=== PATIENT | female | born 1940 | race Caucasian/White ===

== ENCOUNTER 2020-08-24 08:58 | Outpatient (REF) | payer MEDICARE, SELFPAY ==
[2020-08-24 10:49] LABS: Blood Urea Nitrogen 28 mg/dL (9-16); Calcium 9.5 mg/dL (8.4-10.2); Estimated Glomerular Filt Rate 59; Phosphorus 4.3 mg/dL (2.7-4.5)
[2020-08-24 13:13] LABS: Anion Gap 12 (12-20); Carbon Dioxide 33 mmol/L (22-29); Chloride 100 mmol/L (96-108); Potassium 4.7 mmol/l (3.3-5.1); Sodium 140 mmol/L (135-145)
[2020-08-24 13:38] LABS: Renal w Reflex Lab Use Only Order verified
== END 2020-08-24 08:59 | disposition home or self-care (01) ==
LOC: HO.LAB 08:58
PROVIDERS: Visit Provider Internal Medicine Nephrology
DX: I12.9 Hypertensive chronic kidney disease with stage 1 through stage 4 chronic kidney disease, or unspecified chronic kidney disease (principal); N18.2 Chronic kidney disease, stage 2 (mild); D63.1 Anemia in chronic kidney disease; E87.1 Hypo-osmolality and hyponatremia; E87.5 Hyperkalemia; D63.8 Anemia in other chronic diseases classified elsewhere; R80.9 Proteinuria, unspecified
CPT/HCPCS: 80051; 82310; 82565; 84100; 84520

== ENCOUNTER 2020-09-01 09:52 | Outpatient (REF) | payer MEDICARE, SELFPAY ==
[2020-09-01 11:50] LABS: Estimated Average Glucose 171 mg/dL; Hemoglobin A1c % 7.6 %
[2020-09-01 12:08] LABS: Anion Gap 14 (12-20); Blood Urea Nitrogen 30 mg/dL (9-16); Calcium 8.9 mg/dL (8.4-10.2); Carbon Dioxide 31 mmol/L (22-29); Chloride 96 mmol/L (96-108); Estimated Glomerular Filt Rate 44; Glucose Random 368 mg/dL (60-115); Potassium 5.5 mmol/l (3.3-5.1); Sodium 135 mmol/L (135-145)
[2020-09-01 12:15] LABS: Free T4 (Free Thyroxine) 1.08 ng/dL (0.71-1.85); Thyroid Stimulating Hormone 2.61 mIU/mL (0.32-4.0)
== END 2020-09-01 09:53 | disposition home or self-care (01) ==
LOC: HO.LAB 09:52
DX: I10 Essential (primary) hypertension (principal); E11.9 Type 2 diabetes mellitus without complications; R53.83 Other fatigue
CPT/HCPCS: 80048; 83036; 84439; 84443

== ENCOUNTER 2020-12-31 07:58 | Outpatient (REF) | payer MEDICARE, SELFPAY ==
[2020-12-31 08:41] LABS: MANUAL DIFF FLAG NO
[2020-12-31 08:49] LABS: Basophils Percent Auto 0.5 % (0-2); Eosinophils Absolute Auto 0.3 X10*3/uL (0.0-0.4); Eosinophils Percent Auto 3.4 % (0-4); Hematocrit 35.7 % (37-47); Hemoglobin 11.7 g/dl (12.0-16.0); Imm Gran Abs Auto 0.02 X10*3/uL (0.00-0.03); Imm Gran Pct Auto 0.3 % (0.0-0.4); Lymphocytes Absolute Auto 2.1 X10*3/uL (1.2-4.9); Lymphocytes Percent Auto 27.9 % (20-40); Mean Corpuscular HGB Conc 32.8 g/dl (31.0-35.0); Mean Corpuscular Hemoglobin 32.4 pg (27.0-33.0); Mean Corpuscular Volume 98.9 fL (80-98); Mean Platelet Volume 12.1 fL (9.4-12.3); Monocytes Absolute Auto 0.6 X10*3/uL (0.1-1.2); Monocytes Percent Auto 7.8 % (2-11); Neutrophils Absolute Auto 4.5 X10*3/uL (2.0-8.3); Neutrophils Percent Auto 60.1 % (45-73); Platelet Count 319 X10*3/uL (160-400); Red Blood Count 3.61 X10*6/uL (4.20-5.50); Red Cell Distribution Width 11.4 % (11.0-16.0); White Blood Count 7.4 X10*3/uL (4.8-10.8)
[2020-12-31 09:14] LABS: Estimated Average Glucose 166 mg/dL; Hemoglobin A1c % 7.4 %
[2020-12-31 09:32] LABS: Alanine Aminotransferase 16 U/L (0-31); Albumin Level 4.1 g/dL (3.5-5.0); Alkaline Phosphatase 99 U/L (39-117); Anion Gap 14 (12-20); Aspartate Amino Transferase 19 U/L (5-31); Bilirubin Total 0.4 mg/dL (0.0-1.0); Blood Urea Nitrogen 32 mg/dL (9-16); Calcium 9.6 mg/dL (8.4-10.2); Carbon Dioxide 31 mmol/L (22-29); Chloride 100 mmol/L (96-108); Cholesterol 148 mg/dL; Estimated Glomerular Filt Rate 49; Glucose Random 124 mg/dL (60-115); HDL Cholesterol 43 mg/dL; LDL Cholesterol Calculated 89 mg/dl; Potassium 5.7 mmol/L (3.3-5.1); Sodium 139 mmol/L (135-145); Total Protein 7.1 g/dL (6.5-8.0); Triglycerides 80 mg/dL
[2020-12-31 09:37] LABS: Thyroid Stimulating Hormone 1.46 uIU/mL (0.32-4.0)
[2020-12-31 11:39] LABS: Creatinine Urine 69.19 mg/dL; Microalbum/Creatinine Ratio Ur 268.8 ug/mg cr
== END 2020-12-31 07:59 | disposition home or self-care (01) ==
LOC: HO.LAB 07:58
PROVIDERS: PCP Internal Medicine; Visit Provider Internal Medicine
DX: Z00.01 Encounter for general adult medical examination with abnormal findings (principal); E03.9 Hypothyroidism, unspecified; E11.65 Type 2 diabetes mellitus with hyperglycemia; E78.00 Pure hypercholesterolemia, unspecified; F32.89 Other specified depressive episodes; I12.9 Hypertensive chronic kidney disease with stage 1 through stage 4 chronic kidney disease, or unspecified chronic kidney disease; M54.16 Radiculopathy, lumbar region
CPT/HCPCS: 36415; 80053; 80061; 82043; 83036; 84443; 85025

== ENCOUNTER 2021-05-24 07:51 | Outpatient (REF) | payer MEDICARE, SELFPAY ==
[2021-05-24 08:44] LABS: Estimated Average Glucose 180 mg/dL; Hemoglobin A1c % 7.9 %
[2021-05-24 09:04] LABS: Alanine Aminotransferase 14 U/L (0-31); Albumin Level 3.9 g/dL (3.5-5.0); Alkaline Phosphatase 113 U/L (39-117); Anion Gap 14 (12-20); Aspartate Amino Transferase 21 U/L (5-31); Bilirubin Total 0.3 mg/dL (0.0-1.0); Blood Urea Nitrogen 24 mg/dL (9-16); Calcium 9.8 mg/dL (8.4-10.2); Carbon Dioxide 31 mmol/L (22-29); Chloride 98 mmol/L (96-108); Estimated Glomerular Filt Rate 45; Glucose Random 229 mg/dL (60-115); Potassium 5.4 mmol/L (3.3-5.1); Sodium 138 mmol/L (135-145)
== END 2021-05-24 07:52 | disposition home or self-care (01) ==
LOC: HO.LAB 07:51
PROVIDERS: PCP Internal Medicine; Visit Provider Internal Medicine
DX: E03.9 Hypothyroidism, unspecified (principal); E11.65 Type 2 diabetes mellitus with hyperglycemia; E78.00 Pure hypercholesterolemia, unspecified; M54.16 Radiculopathy, lumbar region; R80.9 Proteinuria, unspecified
CPT/HCPCS: 36415; 80053; 83036

== ENCOUNTER 2021-06-07 11:45 | Outpatient (REF) | payer MEDICARE, SELFPAY ==
[2021-06-07 13:54] LABS: Alanine Aminotransferase 14 U/L (0-31); Albumin Level 4.2 g/dL (3.5-5.0); Alkaline Phosphatase 104 U/L (39-117); Anion Gap 14 (12-20); Aspartate Amino Transferase 21 U/L (5-31); Bilirubin Total 0.3 mg/dL (0.0-1.0); Blood Urea Nitrogen 35 mg/dL (9-16); Carbon Dioxide 29 mmol/L (22-29); Chloride 99 mmol/L (96-108); Estimated Glomerular Filt Rate 40; Glucose Random 207 mg/dL (60-115); Potassium 5.8 mmol/L (3.3-5.1); Sodium 136 mmol/L (135-145); Total Protein 7.3 g/dL (6.5-8.0)
[2021-06-07 14:38] LABS: Estimated Average Glucose 192 mg/dL; Hemoglobin A1c % 8.3 %
== END 2021-06-07 11:46 | disposition home or self-care (01) ==
LOC: HO.LAB 11:45
PROVIDERS: PCP Internal Medicine; Visit Provider Internal Medicine
DX: E03.9 Hypothyroidism, unspecified (principal); E11.65 Type 2 diabetes mellitus with hyperglycemia; G56.02 Carpal tunnel syndrome, left upper limb; K64.8 Other hemorrhoids; N81.2 Incomplete uterovaginal prolapse
CPT/HCPCS: 36415; 80053; 83036

== ENCOUNTER 2021-06-28 10:31 | Outpatient (REF) | payer MEDICARE, SELFPAY ==
--- NOTE | ~2021-06-28 | MM_ITS ---
EXAMINATION: MM SCREENING DIGITAL BREAST TOMOSYNTHESIS, BILATERAL CLINICAL INFORMATION: Screening. Asymptomatic. The lifetime risk of breast cancer based on the Tyrer-Cuzick Model is 2%. COMPARISON: Mammography: 11/21/2019, 11/16/2018, 02/06/2018 TECHNIQUE: Digital breast tomosynthesis is performed in both the craniocaudal and mediolateral oblique views along with computer-aided detection (CAD). Synthesized 2D images are generated from the tomosynthesis. Additional exaggerated right CC view is provided. FINDINGS: The breasts are extremely dense, which lowers the sensitivity of mammography (ACR BI-RADS breast composition Category d). Parenchymal pattern is similar to prior exams. There is no developing density or interval mass or architectural abnormality. Again, there is a biopsy clip marker mid 9:30 o'clock left breast and circumscribed nodule posterior 3:00 left breast. Right breast again has benign grouped coarse calcifications mid to posterior 3:00 position. The bilateral axilla and skin contours are unremarkable. No significant changes. MM/MM tomosynthesis screening BI IMPRESSION: No significant changes from prior studies. ASSESSMENT: BI-RADS 2: Benign RECOMMENDATION: Routine annual mammography screening. This patient's information was entered into a reminder system with a target due date for their next mammogram.
== END 2021-06-28 10:32 | disposition home or self-care (01) ==
LOC: HO.MAMMO 10:31
PROVIDERS: Visit Provider Internal Medicine
DX: Z12.31 Encounter for screening mammogram for malignant neoplasm of breast (principal)
CPT/HCPCS: 77063; 77067

== ENCOUNTER → 2021-07-06 09:53 | Outpatient (BNVA) | payer MEDICARE, SELFPAY | PROVIDERS: PCP Internal Medicine; Visit Provider Obstetrics & Gynecology | DX: N81.4 Uterovaginal prolapse, unspecified (principal); E11.9 Type 2 diabetes mellitus without complications; I10 Essential (primary) hypertension; Z78.0 Asymptomatic menopausal state | CPT/HCPCS: 99212 ==

== ENCOUNTER → 2021-07-28 14:05 | Outpatient (BNVA) | payer MEDICARE, SELFPAY | PROVIDERS: PCP Internal Medicine; Visit Provider Surgery | DX: K64.8 Other hemorrhoids (principal) | CPT/HCPCS: 46600; 99202 ==

== ENCOUNTER 2021-08-02 09:08 | Outpatient (REF) | payer MEDICARE, SELFPAY ==
[2021-08-02 10:45] LABS: Basophils Percent Auto 0.5 % (0-2); Imm Gran Abs Auto 0.04 X10*3/uL (0.00-0.03); Imm Gran Pct Auto 0.5 % (0.0-0.4); Monocytes Absolute Auto 0.6 X10*3/uL (0.1-1.2)
[2021-08-02 10:47] LABS: Eosinophils Absolute Auto 0.2 X10*3/uL (0.0-0.4); Eosinophils Percent Auto 2.5 % (0-4); Hematocrit 32.9 % (37-47); Hemoglobin 10.6 g/dl (12.0-16.0); Lymphocytes Absolute Auto 1.7 X10*3/uL (1.2-4.9); Lymphocytes Percent Auto 21.3 % (20-40); Mean Corpuscular HGB Conc 32.2 g/dl (31.0-35.0); Mean Corpuscular Hemoglobin 32.1 pg (27.0-33.0); Mean Corpuscular Volume 99.7 fL (80-98); Monocytes Percent Auto 7.4 % (2-11); Neutrophils Absolute Auto 5.5 X10*3/uL (2.0-8.3); Neutrophils Percent Auto 67.8 % (45-73); Platelet Count 257 X10*3/uL (160-400); Red Cell Distribution Width 11.6 % (11.0-16.0); White Blood Count 8.1 X10*3/uL (4.8-10.8)
[2021-08-02 11:07] LABS: Albumin Level 3.9 g/dL (3.5-5.0); Anion Gap 14 (12-20); Blood Urea Nitrogen 35 mg/dL (9-16); Calcium 9.4 mg/dL (8.4-10.2); Carbon Dioxide 27 mmol/L (22-29); Chloride 100 mmol/L (96-108); Estimated Glomerular Filt Rate 42; Magnesium 2.1 mg/dL (1.6-2.6); Phosphorus 3.9 mg/dL (2.7-4.5); Potassium 5.7 mmol/L (3.3-5.1); Sodium 135 mmol/L (135-145); Uric Acid 3.4 mg/dL (2.4-5.7)
[2021-08-02 13:02] LABS: Renal w Reflex Lab Use Only Order verified
[2021-08-02 13:26] LABS: Glucose Random 444 mg/dL (60-115)
[2021-08-06 16:25] LABS: Vitamin D 25-OH, D2 <4 ng/mL; Vitamin D 25-OH, D3 20 ng/mL; Vitamin D 25-OH, Total 20 ng/mL (30-100)
== END 2021-08-02 09:09 | disposition home or self-care (01) ==
LOC: HO.LAB 09:08
PROVIDERS: PCP Internal Medicine; Visit Provider Internal Medicine Nephrology
DX: I12.9 Hypertensive chronic kidney disease with stage 1 through stage 4 chronic kidney disease, or unspecified chronic kidney disease (principal); N18.2 Chronic kidney disease, stage 2 (mild); E87.5 Hyperkalemia; E87.1 Hypo-osmolality and hyponatremia; D63.8 Anemia in other chronic diseases classified elsewhere; R80.9 Proteinuria, unspecified
CPT/HCPCS: 36415; 80051; 82040; 82306; 82310; 82550; 82565; 82947; 83735; 84100; 84520; 84550; 85025

== ENCOUNTER 2021-08-05 09:26 | Outpatient (REF) | payer MEDICARE, SELFPAY ==
--- NOTE | 2021-08-05 09:31 | EMG_ITS ---
The left median and ulnar motor and sensory studies were performed. Left radial sensory study was performed and paraspinal muscles were tested. IMPRESSION: 1. 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 2. 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 MD FOSTER Irizarry/IGNACIA / [id number]
== END 2021-08-05 09:27 | disposition home or self-care (01) ==
LOC: HO.NEURO 09:26
PROVIDERS: Visit Provider Internal Medicine
DX: G56.02 Carpal tunnel syndrome, left upper limb (principal)
CPT/HCPCS: 95886; 95909

== ENCOUNTER → 2021-09-01 10:09 | Outpatient (BNVA) | payer MEDICARE, SELFPAY | PROVIDERS: PCP Internal Medicine; Visit Provider Obstetrics & Gynecology | DX: N81.4 Uterovaginal prolapse, unspecified (principal) | CPT/HCPCS: 99212 ==

== ENCOUNTER → 2021-09-22 12:12 | Outpatient (BNVA) | payer MEDICARE, SELFPAY | PROVIDERS: PCP Internal Medicine; Visit Provider Obstetrics & Gynecology | DX: N81.4 Uterovaginal prolapse, unspecified (principal) | CPT/HCPCS: 99212 ==

== ENCOUNTER → 2021-09-23 10:57 | Outpatient (BNVA) | payer MEDICARE, SELFPAY | PROVIDERS: PCP Internal Medicine; Visit Provider Obstetrics & Gynecology | DX: Z46.89 Encounter for fitting and adjustment of other specified devices (principal); E11.9 Type 2 diabetes mellitus without complications; I10 Essential (primary) hypertension | CPT/HCPCS: 99212 ==

== ENCOUNTER → 2021-09-27 14:39 | Outpatient (BNVA) | payer MEDICARE, SELFPAY | PROVIDERS: PCP Internal Medicine; Visit Provider Obstetrics & Gynecology | DX: Z46.89 Encounter for fitting and adjustment of other specified devices (principal) | CPT/HCPCS: 99212 ==

== ENCOUNTER → 2021-10-05 10:31 | Outpatient (BNVA) | payer MEDICARE, SELFPAY | PROVIDERS: PCP Internal Medicine; Visit Provider Obstetrics & Gynecology | DX: Z46.89 Encounter for fitting and adjustment of other specified devices (principal); E11.9 Type 2 diabetes mellitus without complications; I10 Essential (primary) hypertension | CPT/HCPCS: 99212 ==

== ENCOUNTER 2021-10-06 08:34 | Outpatient (REF) | payer MEDICARE, SELFPAY ==
[2021-10-06 09:56] LABS: Cholesterol 150 mg/dL; HDL Cholesterol 41 mg/dL; LDL Cholesterol Calculated 93 mg/dl; Triglycerides 81 mg/dL
== END 2021-10-06 08:35 | disposition home or self-care (01) ==
LOC: HO.LAB 08:34
PROVIDERS: PCP Internal Medicine; Visit Provider Nurse Practitioner Family
DX: E78.2 Mixed hyperlipidemia (principal)
CPT/HCPCS: 36415; 80061

== ENCOUNTER 2021-12-01 08:05 | Outpatient (REF) | payer MEDICARE, SELFPAY ==
[2021-12-01 08:53] LABS: Estimated Average Glucose 180 mg/dL; Hemoglobin A1c % 7.9 %
[2021-12-01 08:56] LABS: Alanine Aminotransferase 16 U/L (0-31); Aspartate Amino Transferase 20 U/L (5-31); Cholesterol 128 mg/dL; HDL Cholesterol 37 mg/dL; LDL Cholesterol Calculated 76 mg/dl; Triglycerides 75 mg/dL
[2021-12-01 08:59] LABS: Alanine Aminotransferase 16 U/L (0-31); Albumin Level 4.1 g/dL (3.5-5.0); Alkaline Phosphatase 113 U/L (39-117); Anion Gap 13 (12-20); Aspartate Amino Transferase 21 U/L (5-31); Bilirubin Total 0.2 mg/dL (0.0-1.0); Blood Urea Nitrogen 39 mg/dL (9-16); Calcium 9.9 mg/dL (8.4-10.2); Carbon Dioxide 27 mmol/L (22-29); Chloride 102 mmol/L (96-108); Estimated Glomerular Filt Rate 45; Glucose Random 213 mg/dL (60-115); Potassium 5.2 mmol/L (3.3-5.1); Sodium 137 mmol/L (135-145); Total Protein 7.5 g/dL (6.5-8.0)
[2021-12-01 09:22] LABS: Thyroid Stimulating Hormone 0.16 uIU/mL (0.32-4.0)
== END 2021-12-01 08:06 | disposition home or self-care (01) ==
LOC: HO.LAB 08:05
PROVIDERS: Absent Provider Nurse Practitioner Family; PCP Internal Medicine; Visit Provider Internal Medicine
DX: E78.2 Mixed hyperlipidemia (principal); E03.9 Hypothyroidism, unspecified; E11.65 Type 2 diabetes mellitus with hyperglycemia; G56.02 Carpal tunnel syndrome, left upper limb; I12.9 Hypertensive chronic kidney disease with stage 1 through stage 4 chronic kidney disease, or unspecified chronic kidney disease; N18.9 Chronic kidney disease, unspecified; E11.22 Type 2 diabetes mellitus with diabetic chronic kidney disease
CPT/HCPCS: 36415; 80053; 80061; 83036; 84443; 84450; 84460

== ENCOUNTER → 2022-01-10 11:06 | Outpatient (BNVA) | payer MEDICARE, SELFPAY | PROVIDERS: PCP Internal Medicine; Visit Provider Obstetrics & Gynecology | DX: Z46.89 Encounter for fitting and adjustment of other specified devices (principal) | CPT/HCPCS: 99212 ==

== ENCOUNTER → 2022-05-02 10:53 | Outpatient (BNVA) | payer MEDICARE, SELFPAY | PROVIDERS: Visit Provider Obstetrics & Gynecology | DX: Z46.89 Encounter for fitting and adjustment of other specified devices (principal) | CPT/HCPCS: 99212 ==

== ENCOUNTER 2022-06-01 07:57 | Outpatient (REF) | payer MEDICARE, SELFPAY ==
[2022-06-01 08:51] LABS: Basophils Absolute Auto 0.1 X10*3/uL (0.0-0.2); Basophils Percent Auto 0.6 % (0-2); Eosinophils Absolute Auto 0.3 X10*3/uL (0.0-0.4); Eosinophils Percent Auto 3.1 % (0-4); Hematocrit 33.8 % (37.0-47.0); Hemoglobin 10.9 g/dl (12.0-16.0); Imm Gran Abs Auto 0.02 X10*3/uL (0.00-0.03); Imm Gran Pct Auto 0.3 % (0.0-0.4); Lymphocytes Absolute Auto 1.8 X10*3/uL (1.2-4.9); Lymphocytes Percent Auto 22.9 % (20-40); MANUAL DIFF FLAG SCAN; Mean Corpuscular HGB Conc 32.2 g/dl (31.0-35.0); Mean Corpuscular Hemoglobin 31.7 pg (27.0-33.0); Mean Corpuscular Volume 98.3 fL (80.0-98.0); Mean Platelet Volume 13.5 fL (9.4-12.3); Monocytes Absolute Auto 0.6 X10*3/uL (0.1-1.2); Neutrophils Absolute Auto 5.2 x10*3/uL (2.0-8.3); Neutrophils Percent Auto 65.1 % (45-73); PLT CLUMP 1; Red Blood Count 3.44 X10*6/uL (4.20-5.50); Red Cell Distribution Width 11.9 % (11.0-16.0); SCAN SMEAR FLAG 1
[2022-06-01 08:57] LABS: Platelet Count 219 X10*3/uL (160-400)
[2022-06-01 09:12] LABS: SLIDE REVIEW VERIFIED
[2022-06-01 09:37] LABS: Anion Gap 13 (12-20); Blood Urea Nitrogen 21 mg/dL (9-16); Carbon Dioxide 26 mmol/L (22-29); Chloride 104 mmol/L (96-108); Estimated Glomerular Filt Rate 51; Iron 63 mcg/dL (30-160); Percent Iron Saturation 24 % (15-50); Sodium 138 mmol/L (135-145); Total Iron Binding Capacity 262 mcg/dL (228-428); Unsaturated Iron Binding 199 ug/dL
[2022-06-01 12:28] LABS: Appearance Urine CLOUDY; Color Urine YELLOW; Glucose Urine UA 250 MG/DL (NEG); Leukocyte Esterase Urine 3+ (NEG); Nitrite Urine POS (NEG); Urine Blood NEG (NEG); Urine Ketones NEG (NEG); Urine Protein NEG (NEG-TRACE)
[2022-06-01 12:37] LABS: Bacteria Urine 3+ /LPF; Mucus Urine 2+ /LPF; RBC Urine 0 /HPF (0); Squamous Epithelial Cell Urine 3+ /LPF
[2022-06-01 13:42] LABS: Creatinine Urine 39.98 mg/dL; Total Protein Urine Random 12 mg/dL (<12)
== END 2022-06-01 07:58 | disposition home or self-care (01) ==
LOC: HO.LAB 07:57
PROVIDERS: Absent Provider Internal Medicine; PCP Internal Medicine; Visit Provider Internal Medicine Nephrology
DX: N18.2 Chronic kidney disease, stage 2 (mild) (principal)
CPT/HCPCS: 36415; 80051; 81001; 82043; 82310; 82565; 83540; 84156; 84520; 85025

== ENCOUNTER 2022-07-01 09:32 | Outpatient (REF) | payer MEDICARE, SELFPAY ==
--- NOTE | ~2022-07-01 | MM_ITS ---
EXAMINATION: MM SCREENING DIGITAL BREAST TOMOSYNTHESIS, BILATERAL CLINICAL INFORMATION: Screening. Asymptomatic. The lifetime risk of breast cancer based on the Tyrer-Cuzick Model is under 2%. COMPARISON: Mammography: 06/28/2021, 04/21/2020, 04/16/2019 TECHNIQUE: Digital breast tomosynthesis is performed in both the craniocaudal and mediolateral oblique views along with computer-aided detection (CAD). Synthesized 2D images are generated from the tomosynthesis. Additional right MLO view is provided. FINDINGS: The breasts are extremely dense, which lowers the sensitivity of mammography (ACR BI-RADS breast composition Category d). Parenchymal pattern is similar to prior exams. There is no developing density or interval architectural abnormality. Biopsy clip marker again seen mid medial left breast. There are stable benign-appearing grouped calcifications mid central inner breast. There are no significant changes. MM/MM tomosynthesis screening BI IMPRESSION: No significant changes from prior exams. ASSESSMENT: BI-RADS 2: Benign RECOMMENDATION: Routine annual mammography screening. This patient's information was entered into a reminder system with a target due date for their next mammogram.
== END 2022-07-01 09:33 | disposition home or self-care (01) ==
LOC: HO.MAMMO 09:32
PROVIDERS: PCP Internal Medicine; Visit Provider Internal Medicine
DX: Z12.31 Encounter for screening mammogram for malignant neoplasm of breast (principal)
CPT/HCPCS: 77063; 77067

== ENCOUNTER 2022-07-06 10:27 | Outpatient (REF) | payer MEDICARE, SELFPAY ==
[2022-07-06 11:27] LABS: Estimated Average Glucose 186 mg/dL; Hemoglobin A1c % 8.1 %
[2022-07-06 12:06] LABS: Alanine Aminotransferase 25 U/L (0-31); Albumin Level 4.1 g/dL (3.5-5.0); Alkaline Phosphatase 91 U/L (39-117); Anion Gap 14 (12-20); Aspartate Amino Transferase 31 U/L (5-31); Bilirubin Total 0.3 mg/dL (0.0-1.0); Blood Urea Nitrogen 29 mg/dL (9-16); Calcium 9.4 mg/dL (8.4-10.2); Carbon Dioxide 27 mmol/L (22-29); Chloride 101 mmol/L (96-108); Estimated Glomerular Filt Rate 38; Glucose Random 317 mg/dL (60-115); Potassium 5.3 mmol/L (3.3-5.1); Sodium 137 mmol/L (135-145); Total Protein 7.3 g/dL (6.5-8.0)
[2022-07-06 12:30] LABS: Thyroid Stimulating Hormone 1.85 uIU/mL (0.32-4.0); Vitamin D 25-OH Total 22.1 ng/mL (>30)
[2022-07-06 15:06] LABS: Microalbum/Creatinine Ratio Ur 62.3 ug/mg cr
== END 2022-07-06 10:28 | disposition home or self-care (01) ==
LOC: HO.LAB 10:27
PROVIDERS: PCP Internal Medicine; Visit Provider Internal Medicine
DX: E03.9 Hypothyroidism, unspecified (principal); E11.65 Type 2 diabetes mellitus with hyperglycemia; M48.061 Spinal stenosis, lumbar region without neurogenic claudication; S22.080S Wedge compression fracture of T11-T12 vertebra, sequela
CPT/HCPCS: 36415; 80053; 82043; 82306; 83036; 84443

== ENCOUNTER → 2022-08-11 10:36 | Outpatient (BNVA) | payer MEDICARE, SELFPAY | PROVIDERS: PCP Internal Medicine; Visit Provider Obstetrics & Gynecology | DX: S30.814A Abrasion of vagina and vulva, initial encounter (principal) | CPT/HCPCS: 99212 ==

== ENCOUNTER → 2022-09-07 09:39 | Outpatient (BNVA) | payer MEDICARE, SELFPAY | PROVIDERS: PCP Internal Medicine; Visit Provider Obstetrics & Gynecology | DX: N81.4 Uterovaginal prolapse, unspecified (principal) | CPT/HCPCS: 57160; 99212 ==

== ENCOUNTER 2022-10-13 08:23 | Outpatient (REF) | payer MEDICARE, SELFPAY ==
[2022-10-13 09:31] LABS: Estimated Average Glucose 177 mg/dL; Hemoglobin A1c % 7.8 %
[2022-10-13 10:24] LABS: Alanine Aminotransferase 20 U/L (0-31); Albumin Level 3.8 g/dL (3.5-5.0); Alkaline Phosphatase 78 U/L (39-117); Anion Gap 15 (12-20); Aspartate Amino Transferase 27 U/L (5-31); Bilirubin Total 0.6 mg/dL (0.0-1.0); Blood Urea Nitrogen 24 mg/dL (9-16); Calcium 9.6 mg/dL (8.4-10.2); Carbon Dioxide 28 mmol/L (22-29); Chloride 101 mmol/L (96-108); Estimated Glomerular Filt Rate 43; Glucose Random 390 mg/dL (60-115); Potassium 5.7 mmol/L (3.3-5.1); Sodium 138 mmol/L (135-145); Total Protein 6.7 g/dL (6.5-8.0)
== END 2022-10-13 08:24 | disposition home or self-care (01) ==
LOC: HO.LAB 08:23
PROVIDERS: PCP Internal Medicine; Visit Provider Internal Medicine
DX: E03.9 Hypothyroidism, unspecified (principal); E11.65 Type 2 diabetes mellitus with hyperglycemia; I12.9 Hypertensive chronic kidney disease with stage 1 through stage 4 chronic kidney disease, or unspecified chronic kidney disease; E11.22 Type 2 diabetes mellitus with diabetic chronic kidney disease; N18.9 Chronic kidney disease, unspecified; M80.0AXS Age-related osteoporosis with current pathological fracture, other site, sequela
CPT/HCPCS: 36415; 80053; 83036

== ENCOUNTER → 2022-12-08 09:50 | Outpatient (BNVA) | payer MEDICARE, SELFPAY | PROVIDERS: PCP Internal Medicine; Visit Provider Obstetrics & Gynecology | DX: S30.814A Abrasion of vagina and vulva, initial encounter (principal) | CPT/HCPCS: 99212 ==

== ENCOUNTER → 2023-01-19 10:36 | Outpatient (BNVA) | payer MEDICARE, SELFPAY | PROVIDERS: PCP Internal Medicine; Visit Provider Obstetrics & Gynecology | DX: N81.4 Uterovaginal prolapse, unspecified (principal); Z46.6 Encounter for fitting and adjustment of urinary device | CPT/HCPCS: 57160; 99212 ==

== ENCOUNTER 2023-02-15 10:37 | Outpatient (REF) | payer MEDICARE, SELFPAY ==
[2023-02-15 14:40] LABS: Estimated Average Glucose 203 mg/dL; Hemoglobin A1c % 8.7 %
[2023-02-15 14:52] LABS: Alanine Aminotransferase 13 U/L (0-31); Albumin Level 3.5 g/dL (3.5-5.0); Alkaline Phosphatase 53 U/L (39-117); Anion Gap 11 (12-20); Aspartate Amino Transferase 27 U/L (5-31); Bilirubin Total 0.4 mg/dL (0.0-1.0); Blood Urea Nitrogen 23 mg/dL (9-16); Calcium 8.8 mg/dL (8.4-10.2); Carbon Dioxide 28 mmol/L (22-29); Chloride 102 mmol/L (96-108); Cholesterol 124 mg/dL; Estimated Glomerular Filt Rate 48; Glucose Random 249 mg/dL (60-115); HDL Cholesterol 39 mg/dL; LDL Cholesterol Calculated 73 mg/dl; Sodium 136 mmol/L (135-145); Total Protein 5.9 g/dL (6.5-8.0); Triglycerides 63 mg/dL
[2023-02-15 15:03] LABS: Creatinine Urine 56.07 mg/dL; Microalbum/Creatinine Ratio Ur 35.6 ug/mg cr
[2023-02-15 15:05] LABS: Thyroid Stimulating Hormone 1.37 uIU/mL (0.32-4.0); Vitamin B12 923 pg/mL (200-900); Vitamin D 25-OH Total 32.4 ng/mL (>30)
== END 2023-02-15 10:38 | disposition home or self-care (01) ==
LOC: HO.10HDL 10:37
PROVIDERS: Visit Provider Internal Medicine
DX: E03.9 Hypothyroidism, unspecified (principal); E11.65 Type 2 diabetes mellitus with hyperglycemia; E11.22 Type 2 diabetes mellitus with diabetic chronic kidney disease; I12.9 Hypertensive chronic kidney disease with stage 1 through stage 4 chronic kidney disease, or unspecified chronic kidney disease; N18.9 Chronic kidney disease, unspecified; M81.0 Age-related osteoporosis without current pathological fracture; R80.9 Proteinuria, unspecified
CPT/HCPCS: 36415; 80053; 80061; 82043; 82306; 82607; 83036; 84443

== ENCOUNTER 2023-03-14 07:33 | Outpatient (REF) | payer MEDICARE, SELFPAY ==
[2023-03-14 11:24] LABS: Alanine Aminotransferase 17 U/L (0-31)
[2023-03-16 11:48] LABS: Aspartate Amino Transferase 24 U/L (5-31); Cholesterol 131 mg/dL; HDL Cholesterol 40 mg/dL; LDL Cholesterol Calculated 72 mg/dl; Triglycerides 95 mg/dL
== END 2023-03-14 07:34 | disposition home or self-care (01) ==
LOC: HO.LAB 07:33
PROVIDERS: Visit Provider Internal Medicine Cardiovascular Disease
DX: E78.00 Pure hypercholesterolemia, unspecified (principal)
CPT/HCPCS: 36415; 80061; 84450; 84460

== ENCOUNTER 2023-05-01 07:36 | Outpatient (REF) | payer MEDICARE, SELFPAY ==
[2023-05-01 09:07] LABS: Alanine Aminotransferase 12 U/L (0-31); Aspartate Amino Transferase 25 U/L (5-31); Cholesterol 148 mg/dL; HDL Cholesterol 46 mg/dL; LDL Cholesterol Calculated 88 mg/dl; Triglycerides 70 mg/dL
== END 2023-05-01 07:37 | disposition home or self-care (01) ==
LOC: HO.LAB 07:36
PROVIDERS: Visit Provider Nurse Practitioner Family
DX: E78.5 Hyperlipidemia, unspecified (principal)
CPT/HCPCS: 36415; 80061; 84450; 84460

== ENCOUNTER → 2023-05-08 10:39 | Outpatient (BNVA) | payer MEDICARE, SELFPAY | PROVIDERS: PCP Internal Medicine; Visit Provider Obstetrics & Gynecology | DX: Z46.89 Encounter for fitting and adjustment of other specified devices (principal) | CPT/HCPCS: 99212 ==

== ENCOUNTER 2023-05-17 11:29 | Outpatient (REF) | payer MEDICARE, SELFPAY ==
[2023-05-17 13:25] LABS: Estimated Average Glucose 209 mg/dL; Hemoglobin A1c % 8.9 %
[2023-05-17 14:37] LABS: Alanine Aminotransferase 22 U/L (0-31); Albumin Level 3.7 g/dL (3.5-5.0); Alkaline Phosphatase 72 U/L (39-117); Anion Gap 16 (12-20); Aspartate Amino Transferase 37 U/L (5-31); Bilirubin Total 0.4 mg/dL (0.0-1.0); Blood Urea Nitrogen 32 mg/dL (9-16); Calcium 9.9 mg/dL (8.4-10.2); Carbon Dioxide 26 mmol/L (22-29); Chloride 97 mmol/L (96-108); Estimated Glomerular Filt Rate 38; Glucose Random 445 mg/dL (60-115); Sodium 134 mmol/L (135-145); Total Protein 7.1 g/dL (6.5-8.0)
== END 2023-05-17 11:30 | disposition home or self-care (01) ==
LOC: HO.LAB 11:29
PROVIDERS: PCP Internal Medicine; Visit Provider Internal Medicine
DX: K14.6 Glossodynia (principal); R63.4 Abnormal weight loss; R80.9 Proteinuria, unspecified; E10.9 Type 1 diabetes mellitus without complications
CPT/HCPCS: 36415; 80053; 83036

== ENCOUNTER 2023-06-23 07:18 | Outpatient (REF) | payer MEDICARE, SELFPAY ==
[2023-06-23 08:43] LABS: Alanine Aminotransferase 23 U/L (0-31); Aspartate Amino Transferase 36 U/L (5-31); Cholesterol 102 mg/dL; HDL Cholesterol 46 mg/dL; LDL Cholesterol Calculated 45 mg/dl; Triglycerides 59 mg/dL
== END 2023-06-23 07:19 | disposition home or self-care (01) ==
LOC: HO.LAB 07:18
PROVIDERS: Visit Provider Nurse Practitioner Family
DX: E78.5 Hyperlipidemia, unspecified (principal)
CPT/HCPCS: 36415; 80061; 84450; 84460

== ENCOUNTER 2023-06-29 09:48 | Outpatient (REF) | payer MEDICARE, SELFPAY | END 2023-06-29 09:49 | disposition home or self-care (01) | LOC: HO.LNP 09:48 | PROVIDERS: Visit Provider Otolaryngology | DX: B37.9 Candidiasis, unspecified (principal) | CPT/HCPCS: 87102 ==

== ENCOUNTER 2023-08-15 10:11 | Outpatient (AMB) | payer MEDICARE, SELFPAY ==
--- NOTE | 2023-08-15 10:12 | MHC.OFFVIS ---
Intake Vital Signs 08/15/23 10:15 Height 5 ft Weight 110 lb 3.698 oz BMI 21.5 BP 98/58 L Intake Visit Reasons: Pessary Rhic Systems Safety Engineer Required: No Information Interpreted: non-clinical & clinical Nitro Man: Nitro Man Present (Esther GOLD) Accompanied by: Spouse Allergies No Known Allergies Allergy (Unknown, Verified 08/15/23 10:16) Post menopausal: Yes HPI HPI Comments History of Present Illness Details The patient is presenting for pessary check no complaints no vaginal pain, discharge or pressure. The pessary did not slip out. PFS Medical History Pessary maintenance Hemorrhoids with complication Thyroid disease Heart problem Acute hemorrhoid Hypertension Diabetes 1.5, managed as type 2 Surgical History H/O heart surgery Social History Household Members: Spouse Housing: Apartment Alcohol intake: never Patient Tobacco Use Status: Never used Tobacco Sexual orientation: Straight/Heterosexual Gender identity: Female Female Reproductive History Menstrual Age of Menarche: 13 Review of Systems Const All systems reviewed & are unremarkable except as noted in HPI and below Physical Exam Vital Signs: Last Vital Signs BP 98/58 L 08/15/23 10:15 BMI result Body Mass Index 21.5 General: Yes no CVA tenderness External Female Exam: normal external appearance and normal appearance of the urethra Speculum Exam - Vagina: normal palpation, no masses and other (Posterior fornix and left vaginal wall abrasion) Speculum Exam - Cervix: normal appearance of the cervix, normal palpation, no lesions, no masses and nontender Bimanual exam- vagina & uterus: normal bimanual exam, normal palpation, uterine size normal, normal palpation, uterine shape normal, No Cervical tenderness present and non-tender Bimanual Exam- Adnexa, other: normal adnexae Back/Spine/Pelvis Back: no CVA tenderness Assessment & Plan Assessment & Plan (1) Vaginal abrasion: Comment: Secondary to pessary Code(s): S30.814A - Abrasion of vagina and vulva, initial encounter Plan: Discussed with the patient the finding on pelvic exam, posterior fornix and vaginal wall abrasion. Will keep the pessary out, recommended repeat exam in 6 weeks if within normal reinsert the pessary , meanwhile instructions given the patient to call in case of vaginal bleeding pain fever or any other concerns. All questions answered, the patient verbalized understanding. Coding Level of Care Code Est Pt Level 3 (90129) Diagnoses Vaginal abrasion S30.814A
[2023-08-15 10:15] VITALS: BP 98/58; BMI 21.5
== END 2023-08-15 10:30 | disposition home or self-care (01) ==
LOC: HO.HWS 10:11
PROVIDERS: PCP Internal Medicine; Visit Provider Obstetrics & Gynecology
DX: S30.814A Abrasion of vagina and vulva, initial encounter (principal)
CPT/HCPCS: 99213

== ENCOUNTER → 2023-08-15 10:11 | Outpatient (BNVA) | payer MEDICARE, SELFPAY | PROVIDERS: PCP Internal Medicine; Visit Provider Obstetrics & Gynecology | DX: S30.814A Abrasion of vagina and vulva, initial encounter (principal) | CPT/HCPCS: 99212 ==

== ENCOUNTER 2023-08-21 07:49 | Outpatient (REF) | payer MEDICARE, SELFPAY ==
[2023-08-21 08:35] LABS: Basophils Absolute Auto 0.1 X10*3/uL (0.0-0.2); Basophils Percent Auto 0.6 % (0-2); Eosinophils Absolute Auto 0.1 X10*3/uL (0.0-0.4); Eosinophils Percent Auto 1.7 % (0-4); Hematocrit 35.6 % (37.0-47.0); Hemoglobin 11.8 g/dl (12.0-16.0); Imm Gran Abs Auto 0.02 X10*3/uL (0.00-0.03); Imm Gran Pct Auto 0.2 % (0.0-0.4); Lymphocytes Percent Auto 24.2 % (20-40); MANUAL DIFF FLAG SCAN; Mean Corpuscular HGB Conc 33.1 g/dl (31.0-35.0); Mean Corpuscular Hemoglobin 32.8 pg (27.0-33.0); Mean Corpuscular Volume 98.9 fL (80.0-98.0); Mean Platelet Volume 13.4 fL (9.4-12.3); Monocytes Absolute Auto 0.6 X10*3/uL (0.1-1.2); Monocytes Percent Auto 7.4 % (2-11); Neutrophils Absolute Auto 5.6 x10*3/uL (2.0-8.3); Neutrophils Percent Auto 65.9 % (45-73); PLT CLUMP 1; Red Cell Distribution Width 11.7 % (11.0-16.0); SCAN SMEAR FLAG 1
[2023-08-21 08:40] LABS: Platelet Count 207 X10*3/uL (160-400); White Blood Count 8.4 X10*3/uL (4.8-10.8)
[2023-08-21 09:01] LABS: SLIDE REVIEW VERIFIED
[2023-08-21 09:14] LABS: Anion Gap 17 (12-20); Blood Urea Nitrogen 25 mg/dL (9-16); Carbon Dioxide 26 mmol/L (22-29); Chloride 99 mmol/L (96-108); Estimated Glomerular Filt Rate 42; Magnesium 2.2 mg/dL (1.6-2.6); Phosphorus 3.7 mg/dL (2.7-4.5); Potassium 5.2 mmol/L (3.3-5.1); Sodium 137 mmol/L (135-145)
[2023-08-21 13:48] LABS: Appearance Urine Cloudy; Color Urine Yellow; Glucose Urine UA >=1000 mg/dL (Negative); Leukocyte Esterase Urine Moderate (2+) (Negative); Nitrite Urine Negative (Negative); UMIC TRIGGER UA YES; Urine Blood Negative (Negative); Urine Ketones Negative (Negative); Urine Protein Negative (Neg-Trace)
[2023-08-21 13:58] LABS: Bacteria Urine 4+ (None Seen); RBC Urine 0-2 /HPF (0-2)
[2023-08-21 14:34] LABS: Creatinine Urine 23.45 mg/dL; Microalbum/Creatinine Ratio Ur 123.6 ug/mg cr (<30); Protein/Creatinine Ratio, Ur 0.43 (<0.2); Total Protein Urine Random 10 mg/dL (<12)
[2023-08-22 15:48] LABS: Calcium (PTHI) 9.7 mg/dL (8.6-10.4); PTHI 48 pg/mL (16-77)
== END 2023-08-21 07:50 | disposition home or self-care (01) ==
LOC: HO.LAB 07:49
PROVIDERS: PCP Internal Medicine; Visit Provider Internal Medicine Nephrology
DX: E11.22 Type 2 diabetes mellitus with diabetic chronic kidney disease (principal); N18.2 Chronic kidney disease, stage 2 (mild); R80.1 Persistent proteinuria, unspecified; R82.90 Unspecified abnormal findings in urine
CPT/HCPCS: 36415; 80051; 81001; 82040; 82043; 82310; 82565; 82570; 83735; 83970; 84100; 84156; 84520; 85025; 87086; 87088; 87186

== ENCOUNTER 2023-09-27 10:31 | Outpatient (AMB) | payer MEDICARE, SELFPAY ==
[2023-09-27 10:41] VITALS: BP 100/64; BMI 21.5
--- NOTE | 2023-09-27 10:41 | MHC.OFFVIS ---
Intake Vital Signs 09/27/23 10:41 Height 5 ft Weight 110 lb BMI 21.5 BP 100/64 Intake Visit Reasons: 6 week pessary follow up Cotton Program Technician Required: No Information Interpreted: non-clinical & clinical Performance Improvement Specialist: Performance Improvement Specialist Present (Esther) Allergies No Known Allergies Allergy (Unknown, Verified 09/27/23 10:41) Is last menstrual period known: No Post menopausal: Yes Patient : No HPI HPI Comments History of Present Illness Details Presenting up vaginal abrasion from pessary. The patient is doing well with no complaints no vaginal discharge pain or bleeding. [facility] [place] Medical History Pessary maintenance Hemorrhoids with complication Thyroid disease Heart problem Acute hemorrhoid Hypertension Diabetes 1.5, managed as type 2 Surgical History H/O heart surgery Household Members: Spouse Housing: Apartment Alcohol intake: never Patient Tobacco Use Status: Never used Tobacco Patient : No Sexual orientation: Straight/Heterosexual Gender identity: Female Female Reproductive History Menstrual Age of Menarche: 13 control method: none Review of Systems Const All systems reviewed & are unremarkable except as noted in HPI and below Physical Exam Vital Signs: Last Vital Signs BP 100/64 09/27/23 10:41 BMI result Body Mass Index 21.5 Other: Moderate uterine prolapse, [id number] Central +bilateral paravaginal defect with mild rectocele General: Yes no CVA tenderness External Female Exam: normal external appearance and normal appearance of the urethra Speculum Exam - Vagina: normal appearance of the vagina, normal palpation, no lesions and no masses Speculum Exam - Cervix: normal appearance of the cervix, normal palpation, no lesions, no masses and nontender Bimanual exam- vagina & uterus: normal bimanual exam, normal palpation, uterine size normal, normal palpation, uterine shape normal, No Cervical tenderness present, non-tender and other (No evidence of abrasion) Bimanual Exam- Adnexa, other: normal adnexae Back/Spine/Pelvis Back: no CVA tenderness Assessment & Plan Assessment & Plan (1) Pessary maintenance: Code(s): Z46.89 - Encounter for fitting and adjustment of other specified devices Plan: Ring pessary inserted in the vagina. Afterwards the pt did not feel it in, and did not have any pain or pressure. After Valsalva x 3 ( lying down, sitting and standing up ) pessary stayed in . Instructions given the patient to call in case of vaginal pain discharge or bleeding and to schedule a 3 months follow-up appointment . Vaginal Trimosan Gel is to be used x2-3 x/week. The patient verbalized understanding and all questions were answered. Coding Level of Care Code Est Pt Level 3 (62160) Diagnoses Pessary maintenance Z46.89
== END 2023-09-27 10:57 | disposition home or self-care (01) ==
LOC: HO.HWS 10:31
PROVIDERS: PCP Internal Medicine; Visit Provider Obstetrics & Gynecology
DX: Z46.89 Encounter for fitting and adjustment of other specified devices (principal)
CPT/HCPCS: 99213

== ENCOUNTER → 2023-09-27 10:31 | Outpatient (BNVA) | payer MEDICARE, SELFPAY | PROVIDERS: PCP Internal Medicine; Visit Provider Obstetrics & Gynecology | DX: N81.4 Uterovaginal prolapse, unspecified (principal); N95.9 Unspecified menopausal and perimenopausal disorder; Z46.89 Encounter for fitting and adjustment of other specified devices | CPT/HCPCS: 99212 ==

== ENCOUNTER 2023-12-06 08:06 | Outpatient (REF) | payer MEDICARE, SELFPAY ==
[2023-12-06 09:35] LABS: Estimated Average Glucose 197 mg/dL; Hemoglobin A1c % 8.5 % (<6.0)
[2023-12-06 10:02] LABS: Alanine Aminotransferase 36 U/L (0-31); Albumin Level 3.5 g/dL (3.5-5.0); Alkaline Phosphatase 61 U/L (39-117); Anion Gap 11 (12-20); Aspartate Amino Transferase 61 U/L (5-31); Bilirubin Total 0.3 mg/dL (0.0-1.0); Blood Urea Nitrogen 30 mg/dL (9-16); Calcium 9.2 mg/dL (8.4-10.2); Carbon Dioxide 31 mmol/L (22-29); Chloride 102 mmol/L (96-108); Estimated Glomerular Filt Rate 49; Glucose Random 173 mg/dL (60-115); Potassium 4.5 mmol/L (3.3-5.1); Sodium 139 mmol/L (135-145); Total Protein 6.7 g/dL (6.5-8.0)
[2023-12-06 10:18] LABS: Thyroid Stimulating Hormone 0.68 uIU/mL (0.32-4.0)
== END 2023-12-06 08:07 | disposition home or self-care (01) ==
LOC: HO.LAB 08:06
PROVIDERS: PCP Internal Medicine; Visit Provider Internal Medicine
DX: E03.9 Hypothyroidism, unspecified (principal); E11.65 Type 2 diabetes mellitus with hyperglycemia; I10 Essential (primary) hypertension; N18.9 Chronic kidney disease, unspecified; R80.9 Proteinuria, unspecified
CPT/HCPCS: 36415; 80053; 83036; 84443

== ENCOUNTER 2023-12-13 11:35 | Outpatient (REF) | payer MEDICARE, SELFPAY ==
--- NOTE | ~2023-12-13 | XR_ITS ---
EXAMINATION: XR HIP, RIGHT CLINICAL INFORMATION: Right hip osteoarthritis. COMPARISON: None available. TECHNIQUE: Two views of the right hip. FINDINGS: No fracture. Alignment is anatomic. Hip joint space minimally narrowed. Small osteophyte extends off the femoral head. Atherosclerotic calcifications are seen within the vessels of the inner thigh. XR/XR hip RT min 2V IMPRESSION: Minimal osteoarthritis of the right hip.
== END 2023-12-13 11:36 | disposition home or self-care (01) ==
LOC: HO.XRAY 11:35
PROVIDERS: PCP Internal Medicine; Visit Provider Internal Medicine
DX: M16.11 Unilateral primary osteoarthritis, right hip (principal)
CPT/HCPCS: 73502

== ENCOUNTER 2023-12-18 10:00 | Outpatient (REF) | payer MEDICARE, SELFPAY ==
[2023-12-18 11:00] VITALS: BP 183/77; PULSE 70; RESP 16; TEMP 36.8; O2SAT 98
[2023-12-18 13:34] VITALS: BMI 20.1
== END 2023-12-18 10:01 | disposition home or self-care (01) ==
LOC: HO.MS 10:00
PROVIDERS: PCP Internal Medicine; Visit Provider Ophthalmology
DX: H26.491 Other secondary cataract, right eye (principal); Z53.9 Procedure and treatment not carried out, unspecified reason

== ENCOUNTER 2023-12-28 10:28 | Outpatient (AMB) | payer MEDICARE, SELFPAY ==
[2023-12-28 10:55] VITALS: BMI 20.1
--- NOTE | 2023-12-28 10:55 | A.OFFVIS_ITS ---
Intake Vital Signs 12/28/23 10:55 Height 5 ft 2 in Weight 110 lb BMI 20.1 Intake Visit Reasons: 3 month pessary follow up Harness And Bag Inspector Required: No Information Interpreted: non-clinical & clinical Environmental Conservation Professor: Environmental Conservation Professor Present (Esther) Allergies No Known Allergies Allergy (Unknown, Verified 12/28/23 10:55) Is last menstrual period known: No Post menopausal: Yes Patient : No HPI HPI Comments History of Present Illness Details The patient is presenting for pessary check no complaints no vaginal pain, discharge or pressure. The pessary did not slip out. PFS Medical History Pessary maintenance Hemorrhoids with complication Thyroid disease Heart problem Acute hemorrhoid Hypertension Diabetes 1.5, managed as type 2 Surgical History H/O heart surgery Social History Household Members: Spouse Housing: Apartment Alcohol intake: never Patient Tobacco Use Status: Never used Tobacco Patient : No Sexual orientation: Straight/Heterosexual Gender identity: Female Female Reproductive History Menstrual Age of Menarche: 13 control method: none Review of Systems Const All systems reviewed & are unremarkable except as noted in HPI and below Physical Exam Vital Signs: BMI result Body Mass Index 20.1 Other: Moderate uterine prolapse, [id number] Central +bilateral paravaginal defect with mild rectocele General: Yes no CVA tenderness External Female Exam: normal external appearance and normal appearance of the urethra Speculum Exam - Vagina: normal appearance of the vagina, normal palpation, no lesions, no masses and other (Pessary taken out, posterior fornix abrasion.) Speculum Exam - Cervix: normal appearance of the cervix, normal palpation, no lesions, no masses and nontender Bimanual exam- vagina & uterus: normal bimanual exam, normal palpation, uterine size normal, normal palpation, uterine shape normal, No Cervical tenderness present and non-tender Bimanual Exam- Adnexa, other: normal adnexae Back/Spine/Pelvis Back: no CVA tenderness Assessment & Plan Assessment & Plan (1) Vaginal abrasion: Comment: Secondary to pessary Code(s): S30.814A - Abrasion of vagina and vulva, initial encounter Plan: Pessary taken out, repeat out for 6 weeks secondary to vaginal abrasion. Instructions given the patient to call in case of fever above 100.4, vaginal discharge or bleeding. (2) Cystocele with uterine prolapse: Comment: Moderate uterine prolapse, [id number] Central +bilateral paravaginal defect with mild rectocele Code(s): N81.4 - Uterovaginal prolapse, unspecified Plan: Given the recurrence of vaginal abrasion from the pessary, the patient is requesting to be evaluated for surgical management, refer to Urogynecology for further management Coding Level of Care Code Est Pt Level 3 (23234) Diagnoses Vaginal abrasion S30.814A Cystocele with uterine prolapse N81.4
== END 2023-12-28 11:26 | disposition home or self-care (01) ==
LOC: HO.HWS 10:28
PROVIDERS: PCP Internal Medicine; Visit Provider Obstetrics & Gynecology
DX: S30.814A Abrasion of vagina and vulva, initial encounter (principal); N81.4 Uterovaginal prolapse, unspecified
CPT/HCPCS: 99213

== ENCOUNTER → 2023-12-28 10:28 | Outpatient (BNVA) | payer MEDICARE, SELFPAY | PROVIDERS: PCP Internal Medicine; Visit Provider Obstetrics & Gynecology | DX: S30.814D Abrasion of vagina and vulva, subsequent encounter (principal); N81.4 Uterovaginal prolapse, unspecified; Z96.0 Presence of urogenital implants | CPT/HCPCS: 99212 ==

== ENCOUNTER 2024-01-01 09:57 | Outpatient (REF) | payer MEDICARE, SELFPAY | END 2024-01-01 09:58 | disposition home or self-care (01) | LOC: HO.MS 09:57 | PROVIDERS: PCP Internal Medicine; Visit Provider Ophthalmology | PROC: (CPT 66821; principal; 2024-01-01 13:20) | DX: H26.491 Other secondary cataract, right eye (principal) | CPT/HCPCS: 66821 ==

== ENCOUNTER 2024-06-16 09:55 | Inpatient (IN) | payer MEDICARE, SELFPAY ==
--- NOTE | ~2024-06-16 | XR_ITS ---
EXAMINATION: XR FOOT, RIGHT CLINICAL INFORMATION: Heel wound. COMPARISON: None available. TECHNIQUE: AP, lateral, and oblique views of the right foot. AP view is obliqued. FINDINGS: Bones are osteopenic. There is abnormal lucency at the lateral cortex of the cuboid. No appreciable fractures. Soft tissues along the plantar aspect of the hindfoot. Mild osteoarthritis at the first MTP joint. Mild multifocal osteoarthritis in the interphalangeal joints and midfoot. XR/XR foot RT min 3V IMPRESSION: Abnormal lucency at the lateral cortex of the cuboid which may be due to a focal osteolysis or nondisplaced fracture. This is only seen on one view of the AP view is relatively obliqued. Consider correlation with MRI to exclude osteomyelitis if this correlates with the region of the patient's symptoms.
--- NOTE | ~2024-06-16 | CT_ITS ---
EXAMINATION: CT FOOT WITH CONTRAST, RIGHT CLINICAL INFORMATION: Heel ulcer. Concern for abscess or osteomyelitis COMPARISON: Radiograph 06/16/24 TECHNIQUE: Multidetector CT of the right foot. The patient received 85 mL of Omnipaque [address] examination was performed using dose optimization techniques as appropriate, variously including the following: *Automated exposure control *Adjustment of mA and/or kV according to patient size (this includes techniques or standardized protocols for targeted exams where dose is matched to indication/reason for exam; i.e. extremities or head) *Use of iterative reconstruction technique DLP: 126 mGy-cm FINDINGS: There is an ulcer involving the heel soft tissues. There is likely overlying dressing. There is reticulation in the superficial fat. There is no drainable abscess collection. There is no specific imaging evidence of osteomyelitis. No periosteal new bone. No soft tissue gas elsewhere. No retained foreign body. There is no bone destruction or erosion involving the cuboid. CT/CT foot RT w IV con IMPRESSION: No specific radiographic evidence of osteomyelitis. No fracture or erosion involving the cuboid. Soft tissue stranding could reflect edema/cellulitis
--- NOTE | ~2024-06-16 | XR_ITS ---
EXAMINATION: XR ABDOMEN KUB CLINICAL INDICATION: Constipation. Evaluate for obstruction. COMPARISON: MRI lumbar spine from 12/16/2021 TECHNIQUE: AP view of the abdomen. FINDINGS: A large amount of fecal material is present in the colon. No evidence of dilated bowel loops. No pneumoperitoneum is seen on this examination performed with the patient in supine position. There are no overt urinary tract calculi. Phleboliths are seen in the lower pelvis. Multilevel osteophyte formation of the spine. Old compression fracture deformity of the T12 vertebral body. Atherosclerotic calcification of iliac and femoral arteries. XR/XR abdomen 1V IMPRESSION: Large amount of fecal material is present in the colon. This suggests likelihood of constipation. No evidence of bowel obstruction.
--- NOTE | ~2024-06-16 | US_ITS ---
EXAMINATION: US VENOUS ULTRASOUND WITH DOPPLER LOWER EXTREMITY, RIGHT CLINICAL INFORMATION: Pain swelling COMPARISON: None available. TECHNIQUE: Ultrasound of the deep veins is performed from the hip to the calf with compression sonography and color and pulse Doppler assessment. Spectral analysis with color-flow imaging is performed. FINDINGS: There is normal venous compression and respiratory variation and augmented flow. The visualized common femoral vein, superficial femoral vein, profunda femoral vein, popliteal vein, and the trifurcation region shows no evidence of deep venous thrombosis. Contralateral common femoral vein is patent. There is no significant popliteal fossa cyst. Within the right groin is morphologically benign-appearing lymph node measuring 9 mm in short axis. If the patient's symptoms persist, followup ultrasound in 5 days 7 days might be of value to exclude proximal propagation from a non-visualized calf vein. US/US venous duplex LE RT IMPRESSION: 1. No DVT demonstrated in the right lower extremity. 2. Within the right groin is morphologically benign-appearing lymph node measuring 9 mm in short axis.
[2024-06-16 10:10] VITALS: BP 154/55; PULSE 85; RESP 16; TEMP 37; O2SAT 98; BMI 18.7
--- NOTE | 2024-06-16 10:49 | ED_ITS ---
HPI - Extremity Injury (Lower) General Chief Complaint: Wound/Laceration Stated Complaint: lump on r knee Time Seen by Provider: 06/16/24 10:36 Source: patient and family Mode of arrival: ambulatory Limitations: no limitations History of Present Illness ED Provider: ANDREA BHARDWAJ Narrative: 84 yo female with PMH of HLD, HTN, hypothyroidism, DM her noted she had blister on R foot 3 days ago he took clean scissors and cut it open. Since then the wound has become more red, painful and she now has pain going up the leg into the calf. She cannot walk on the foot. They do not know how this injury happened. complaint: other (blister) Onset (ago): day(s) (3) Injury: Right: foot Type of Injury: other (blister) Place: home Severity: moderate Relieving factors: immobilization Exacerbating factors: weight bearing, movement and palpation Context: other Associated symptoms: swelling Other symptoms: other (leg pain) Treatments prior to arrival: other (removal of blister) Related Data Home Medications ?Medication ?Instructions ?Recorded ?Confirmed aspirin 81 mg tablet,delayed 81 mg PO DAILY 07/06/21 07/28/21 release atorvastatin 20 mg tablet 20 mg PO DAILY 07/06/21 07/28/21 furosemide 20 mg tablet 20 mg PO DAILY 07/06/21 07/28/21 gabapentin 600 mg tablet 600 mg PO BID 07/06/21 07/28/21 hydralazine 50 mg tablet 50 mg PO TID 07/06/21 07/28/21 insulin human U-100 NPH-regulr 40 unit subcut BID 07/06/21 07/28/21 70-30 mix 100 unit/mL subcutaneous susp (Humulin 70/30 U-100 Insulin) levothyroxine 100 mcg capsule 100 mcg PO DAILY 07/06/21 07/28/21 levothyroxine 100 mcg tablet 100 mcg PO DAILY 07/06/21 07/28/21 ascorbate calcium (vitamin C) 500 500 mg PO DAILY 07/28/21 mg tablet Previous Rx's ?Medication ?Instructions ?Recorded hydrocortisone acetate 25 mg 25 mg IA BID #24 ea 07/28/21 rectal suppository (Anusol-HC) oxyquinoline 0.025 %-sodium lauryl 1 ea vaginal .x3/week 3 months 09/22/21 sulfate 0.01 % vaginal gel #113.4 grams (Trimo-Reynolds Jelly) Allergies Allergy/AdvReac Type Severity Reaction Status Date / Time No Known Allergies Allergy Unknown Verified 06/16/24 10:19 Review of Systems 2 Review of Systems: Constitutional : No Fever, No Chills ENT/Mouth : No sore throat, No Rhinorrhea Eyes: No Eye Pain, No Swelling, No Redness Cardiovascular : No Chest Pain, No SOB Respiratory : No Cough, No Sputum Gastrointestinal : No Nausea, No Vomiting, No Diarrhea, No abdominal Pain Genitourinary : No Dysuria, No Hematuria Musculoskeletal : pos joint pain, No Myalgias, No Joint Swelling Skin : pos Skin Lesions, positive skin rash Neuro : No Weakness, No Numbness, No Headache Psych : No Anxiety, No Depression Heme/Lymph: No Bruising, No Bleeding,No Lymphadenopathy Endocrine : No Polyuria, No Polydipsia All other systems reviewed and are negative [facility] Past Medical History Attestation statement: The following information was validated with the patient. Source: old records reviewed Medical History Pessary maintenance Hemorrhoids with complication Thyroid disease Heart problem Acute hemorrhoid Hypertension Diabetes 1.5, managed as type 2 Surgical History H/O heart surgery Social History Social History Household Members: Spouse Housing: Apartment Alcohol intake: never Patient Tobacco Use Status: Never used Tobacco Advance Directives: No Advance Directives Information Provided: No Do you have a plan to hurt others: No Plan Sexual orientation: Straight/Heterosexual Gender identity: Female Physical Exam 2 Vital Signs: Vital Signs: Last Vital Signs Temp 98.6 F 06/16/24 10:10 Pulse 85 06/16/24 10:10 Resp 16 06/16/24 10:10 BP 154/55 H 06/16/24 10:10 Pulse Ox 98 06/16/24 10:10 O2 Del Method Room Air 06/16/24 10:10 BMI result Body Mass Index 18.7 Appearance: Alert. Oriented X3. No acute distress. Eyes: Pupils equal, round and reactive to light. ENT: Pharynx normal. Neck: Normal inspection. Neck supple. CVS: Normal heart rate and rhythm. Pulses normal. Respiratory: No respiratory distress. Breath sounds normal. Abdomen: Soft and non-tender. Skin: Skin warm and dry. Normal skin color. Extremities: No lower extremity edema. R foot open wound to heel and blister on hot to touch, painful and very tender. there is pain going up the calf she is NV Intact Neuro: Oriented X 3. No motor deficit. No sensory deficit. Medications Administered Discontinued Medications Generic Name Dose Route Start Last Admin Trade Name Freq PRN Reason Stop Dose Admin Cefepime HCl 1 gm/ Sodium 50 mls @ 100 mls/hr 06/16/24 10:40 06/16/24 12:45 Chloride IV 06/16/24 11:09 Infused ONCE ONE Infusion Medical Decision Making Medical Decision Making [facility] Narrative: 84 yo female with PMH of HLD, HTN, hypothyroidism, DM here with c/o R foot wounds with a blister that was opened at home now increased pain and redness - at this time she has another blister on the foot. Will need labs, cultures, xray and IV cefepime. 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 PO cephalexin until seen by wound care, no fevers, no WBC count consult placed and patient agree to plan Lab Data [facility] Lab Attestation statement: I reviewed the patient's lab results. 06/16/24 11:17 06/16/24 11:57 Labs: Lab Results 06/16/24 06/16/24 Range/Units 11:17 11:57 WBC 9.0 (4.8-10.8) X10*3/uL RBC 3.03 L (4.20-5.50) X10*6/uL Hgb 10.1 L (12.0-16.0) g/dl Hct 31.0 L (37.0-47.0) % MCV 102.3 H (80.0-98.0) fL MCH 33.3 H (27.0-33.0) pg MCHC 32.6 (31.0-35.0) g/dl RDW 11.8 (11.0-16.0) % Plt Count 249 (160-400) X10*3/uL MPV 12.8 H (9.4-12.3) fL Immature Gran % (Auto) 0.3 (0.0-0.4) % Neut % (Auto) 76.4 H (45-73) % Lymph % (Auto) 14.8 L (20-40) % Eddy % (Auto) 6.7 (2-11) % Eos % (Auto) 1.1 (0-4) % Baso % (Auto) 0.7 (0-2) % Lymph # (Auto) 1.3 (1.2-4.9) X10*3/uL Eddy # (Auto) 0.6 (0.1-1.2) X10*3/uL Eos # (Auto) 0.1 (0.0-0.4) X10*3/uL Baso # (Auto) 0.1 (0.0-0.2) X10*3/uL Abs Immat Gran (auto) 0.03 (0.00-0.03) X10*3/uL Absolute Neuts (auto) 6.9 (2.0-8.3) x10*3/uL Absolute Nucleated RBC 0.000 (0.0-0.012) X10*3/uL Nucleated RBC % (auto) 0.0 (0.0-0.2) /100WBC ESR 66 H (0-20) MM/HR Sodium 136 (135-145) mmol/L Potassium 4.5 (3.3-5.1) mmol/L Chloride 101 (96-108) mmol/L Carbon Dioxide 28 (22-29) mmol/L Anion Gap 12 (12-20) BUN 30 H (9-16) mg/dL Creatinine 1.14 (0.5-1.4) mg/dL Estim Creat Clear Calc 26.8 Estimated GFR 45 Random Glucose 302 H (60-115) mg/dL Lactic Acid 0.9 (0.5-2.0) mmol/L Calcium 9.8 D (8.4-10.2) mg/dL Magnesium 2.0 (1.6-2.6) mg/dL Total Bilirubin 0.3 (0.0-1.0) mg/dL Direct Bilirubin 0.1 (0.0-0.5) mg/dL AST 26 (5-31) U/L ALT 13 (0-31) U/L Alkaline Phosphatase 71 (39-117) U/L C-Reactive Protein 3.72 H (< or = 0.50) mg/dL Total Protein 6.8 (6.5-8.0) g/dL Albumin 3.4 L (3.5-5.0) g/dL Independent Interpretation I performed an independent interpretation of an: Plain X-Ray (no osteo cuboid area not consistent with area of pain) Radiology Impression Discussion of test interpretation with radiology: I have reviewed the radiologist's reading. Independent Historian Clinical information obtained from an independent historian. History obtained from or confirmed by: Spouse External Record Review External record reviewed: Inpatient record Discharge Plan Discharge Clinical Impression: Open wound of foot, Elevated erythrocyte sedimentation rate Patient Disposition: Still a Patient Instructions: Acute Wounds (ED) Prescriptions: No Action furosemide 20 mg tablet 20 mg PO DAILY aspirin 81 mg tablet,delayed release (DR/EC) 81 mg PO DAILY atorvastatin 20 mg tablet 20 mg PO DAILY gabapentin 600 mg tablet 600 mg PO BID levothyroxine 100 mcg tablet 100 mcg PO DAILY Humulin 70/30 U-100 Insulin 100 unit/mL (70-30) suspension 40 unit subcut BID levothyroxine 100 mcg capsule 100 mcg PO DAILY hydralazine 50 mg tablet 50 mg PO TID ascorbate calcium (vitamin C) 500 mg tablet 500 mg PO DAILY hydrocortisone acetate [Anusol-HC] 25 mg suppository 25 mg IA BID Qty: 24 0RF Trimo-Reynolds Jelly 0.025-0.01 % gel 1 ea vaginal .x3/week 90 Days Qty: 113.4 3RF Print Language: Tuvaluan
[2024-06-16 11:32] LABS: MANUAL DIFF FLAG NO
[2024-06-16 11:33] LABS: Basophils Absolute Auto 0.1 X10*3/uL (0.0-0.2); Basophils Percent Auto 0.7 % (0-2); Eosinophils Absolute Auto 0.1 X10*3/uL (0.0-0.4); Eosinophils Percent Auto 1.1 % (0-4); Hemoglobin 10.1 g/dl (12.0-16.0); Imm Gran Abs Auto 0.03 X10*3/uL (0.00-0.03); Imm Gran Pct Auto 0.3 % (0.0-0.4); Lymphocytes Absolute Auto 1.3 X10*3/uL (1.2-4.9); Lymphocytes Percent Auto 14.8 % (20-40); Mean Corpuscular HGB Conc 32.6 g/dl (31.0-35.0); Mean Corpuscular Hemoglobin 33.3 pg (27.0-33.0); Mean Corpuscular Volume 102.3 fL (80.0-98.0); Mean Platelet Volume 12.8 fL (9.4-12.3); Monocytes Absolute Auto 0.6 X10*3/uL (0.1-1.2); Monocytes Percent Auto 6.7 % (2-11); Neutrophils Absolute Auto 6.9 x10*3/uL (2.0-8.3); Neutrophils Percent Auto 76.4 % (45-73); Platelet Count 249 X10*3/uL (160-400); Red Blood Count 3.03 X10*6/uL (4.20-5.50); Red Cell Distribution Width 11.8 % (11.0-16.0)
[2024-06-16 11:47] LABS: Lactic Acid 0.9 mmol/L (0.5-2.0)
[2024-06-16] MEDS: cefEPime HCl 1 GM in 0.9 % Sodium Chloride 50 ML IV (11:57)
--- NOTE | 2024-06-16 12:00 | PC.NURSE ---
pt medicated per order-float nurse
[2024-06-16 12:15] LABS: Erythrocyte Sedimentation Rate 66 MM/HR (0-20)
[2024-06-16 12:22] LABS: Alanine Aminotransferase 13 U/L (0-31); Albumin Level 3.4 g/dL (3.5-5.0); Alkaline Phosphatase 71 U/L (39-117); Anion Gap 12 (12-20); Aspartate Amino Transferase 26 U/L (5-31); Bilirubin Direct 0.1 mg/dL (0.0-0.5); Bilirubin Total 0.3 mg/dL (0.0-1.0); Blood Urea Nitrogen 30 mg/dL (9-16); C Reactive Protein 3.72 mg/dL (< or = 0.50); Calcium 9.8 mg/dL (8.4-10.2); Carbon Dioxide 28 mmol/L (22-29); Chloride 101 mmol/L (96-108); Creatinine Clr Calc Pharmacy 26.8; Estimated Glomerular Filt Rate 45; Glucose Random 302 mg/dL (60-115); Potassium 4.5 mmol/L (3.3-5.1); Sodium 136 mmol/L (135-145); Total Protein 6.8 g/dL (6.5-8.0)
[2024-06-16 14:23] VITALS: BP 154/58; PULSE 66; RESP 16; TEMP 36.5; O2SAT 98
[2024-06-16] MEDS: cephALEXin 500 MG CAPSULE PO ×2 (15:43→20:55)
[2024-06-16 16:07] VITALS: BP 184/67; PULSE 71; RESP 15; TEMP 36.9; O2SAT 98
--- NOTE | 2024-06-16 16:08 | MHC.EDTECH ---
THIS PCT ASSUMED CARE OF PATIENT AT 1500 ,PATIENT WAS ASSISTED UNTO BEDSIDE COMMODE ,VOID ,YVETTE CARE GIVEN ,PT WAS CHANGE INTO HOSPITAL GOWN ,,VITALS TAKEN ,RN COLE AWARE OF PT HIGH BP ,PT BELONGINGS LIST DONE ,COPY IN PT CHART ,PATIENT ASKED FOR FOOD ,WAS GIVEN A ROAST BEEF SANDWICH AND CRANBERRY JUICE ,PT ALERT AND ORIENTED ,NO APPARENT DISTRESS NOTED ,PLAN OF CARE CONTINUE ,CALL WEBSTER WITHIN PT REACH .
--- NOTE | 2024-06-16 18:19 | MHC.EDTECH ---
Patient was assisted to bedside commode ,aden care given ,Patient back in bed ,Patient was set up with dinner ,Patient at bedside .
[2024-06-16 18:21] VITALS: BP 152/63; PULSE 97; RESP 18; TEMP 36.8; O2SAT 97
[2024-06-16 18:41] LABS: Glucose, Whole Blood 154 mg/dL (60-115)
--- NOTE | 2024-06-16 18:42 | PHA.MEDREC ---
Addendum entered by Mere Shetty RPh 06/16/24 18:54: med rec complete by internet site designer, reviewed by [facility] Original Note: Pharmacy Consult ? Medication Reconciliation Pharmacy has completed the medication reconciliation.
--- NOTE | 2024-06-16 18:49 | MHC.EDTECH ---
Patient blood sugar was checked before inner ,RN Carmen aware of result ,Patient ate 100 % of dinner and rank 480 ml fluids ,Blood sugar re check and RN aware that Pt bp did went down ,Patient left ,Patient is listening to television ,all need are me at this time ,Call cornejo within Pt reach .
[2024-06-16 20:52] VITALS: BP 186/63; PULSE 75; RESP 17; TEMP 36.8; O2SAT 97
--- NOTE | 2024-06-16 20:58 | PC.NURSE ---
provider aware of blood pressure
[2024-06-16 21:06] LABS: Glucose, Whole Blood 275 mg/dL (60-115)
[2024-06-16] MEDS: hydrALAZINE HCl 50 MG TABLET PO (21:20)
[2024-06-16 22:15] VITALS: BP 176/60; PULSE 70; RESP 16; TEMP 36.1; O2SAT 98
[2024-06-17] VITALS (9 sets, daily range): BP systolic 151–184; BP diastolic 44–72; PULSE 74–87; RESP 14–18; TEMP 36.3–37.1; O2SAT 93–98; BMI 19.2
[2024-06-17] MEDS: Levothyroxine Sodium 75 MCG TABLET PO (05:31)
[2024-06-17 07:12] LABS: Glucose, Whole Blood 470 mg/dL (60-115)
[2024-06-17] MEDS: Insulin Lispro 100 UNIT/ML 3 ML VIAL SUBCUT ×3 (07:36→18:25)
[2024-06-17] MEDS: Lactated Ringers 1,000 ML 999 ML IV (07:41)
--- NOTE | 2024-06-17 07:49 | PC.NURSE ---
Resting quietly. in bed. skin pwd with exception of right foot wound. dressing CDI and taken down to the xeroform. no indication of infected from what was visible. Pt up to commode with minimal assist and states she's been thirsty. MD was made aware of high glucose and IV fluids ordered. PO fluids encouraged. Will hold breakfast at the moment as patient isn't hungry. Awaits wound clinic consult.
[2024-06-17] MEDS: cephALEXin 500 MG CAPSULE PO ×2 (08:25→13:50)
[2024-06-17] MEDS: Sertraline HCL 50 MG TABLET PO (08:25)
[2024-06-17] MEDS: Calcium + Vitamin D 250 MG TABLET 500 MG PO ×2 (08:25→20:37)
[2024-06-17] MEDS: Furosemide 20 MG TABLET PO (08:25)
[2024-06-17] MEDS: Ezetimibe 10 MG TABLET PO (08:26)
[2024-06-17] MEDS: Atorvastatin Calcium 80 MG TABLET PO (08:26)
[2024-06-17] MEDS: hydrALAZINE HCl 50 MG TABLET PO ×2 (08:26→20:37)
[2024-06-17 09:24] LABS: Glucose, Whole Blood 333 mg/dL (60-115)
--- NOTE | 2024-06-17 09:40 | PC.NURSE ---
THis rn speaking with family to provide update on plan of care. pt is waiting for wound consult. sitting up eat ing breakfast
--- NOTE | 2024-06-17 10:28 | MHC.EDTECH ---
This tech asissted pt to commode, pt was stable while non weight bearing on the right side.
[2024-06-17 13:33] LABS: Glucose, Whole Blood 484 mg/dL (60-115)
--- NOTE | 2024-06-17 14:45 | PC.NURSE ---
has been at bedside and is aware that insulin has been administered at the top of scale for persistantly high POCs. Also aware that RN has been in touch with gunstock spray unit adjuster and that we await her evaluation. Dressing changed on right foot. No drainage noted on xeroform
--- NOTE | 2024-06-17 14:56 | MHC.CM.ED ---
CM met with patient and her , as Dr. Low feels patient will need VNA services for wound care. Pt is awaiting wound care assessment. Pt is not yet medically cleared. Pt lives with her . They have no family help or services. provides all care. Pt is blind. She has diabetes. She uses a walker. Her has no requests for VNA services. Awaiting medical clearance. CM will follow.
[2024-06-17 14:57] LABS: Glucose, Whole Blood 500 mg/dL (60-115)
[2024-06-17] MEDS: Lactated Ringers 500 ML 999 ML IV (15:00)
--- NOTE | 2024-06-17 15:39 | HO.WOUND ---
Wound Consult: Initial 84yr old?female admitted to [facility] on 06/17/24 - See progress notes and H&P for detailed history.? Wound consult placed for Right Foot wound present on admission.? Patient and her who provided most the her health history and reports he is her sole care provider at home is agreeable to assessment and photo documentation.? Patient seen in ED prior to admission. Patient and are Slovenian speaking but deny wanting roll on man - would recommend roll on man at future visit. It is unclear of how the wounds began - the chart review reveals the heel initially presented as a blister / bulla that the patients then opened for healing. When asked if she has neuropathy it was unclear patient did report feeling her heal assessment but there was little to suggest she felt the superior bulla. The patient reports she wears shoes at all times and does not recall an injury to the area - her slipper was assessed and although the base of the shoe / slipper is hard there are no signs of wear to the shoe and there are no hard areas to cause injury. The shoe / slipper appears relatively new but patients denies this. A1C will be helpful in determining patients diabetic control - provider to consider. Right Plantar Wound Etiology: ??Diabetic Wound Measurements: 3cm x 2cm x 0.1cm elevated Wound Bed: Intact bulla with light purple base - appears serous filled Drainage / Odor: none Edges: ? well defined June wound: Intact - no erythema and no pain noted -? No Induration, Fluctuance or Warmth noted Pain: denies Goals of Treatment: ? Off load pressure and protective covering Right Plantar Heel Etiology: ??Diabetic Wound Measurements: 7cm x 7cm x 0.2cm Wound Bed: red dry wound bed with central bogginess noted Drainage / Odor: scant amount of serosang noted on dressing - xerform was dried to wound bed Edges: ? well defined June wound: Intact tissue, +PP, no swelling noted - no erythema noted -? No Induration, Fluctuance or Warmth noted Pain: reports pain when assessed Goals of Treatment: ? Off load pressure and moist wound healing with wound gel - provider to consider imaging to assess central boggy wound - Wound bed does not appear overtly infected however given her poor glucose control and central wound appearance provider to determine if further imaging is needed to rule out fluid collection. If patient remains inpatient - inpatient wound care nurse will follow. Patient will need VNA follow up at time of d/c and will need follow up at the wound clinic for wound healing. Recommendations: 1. Turn and Reposition every 2 hours and as needed for patient comfort.? Use pillows or wedges to support off loading positions. 2. Off Load all bony prominences with use of pillows and heel boots if needed.? Apply Preventative foams where needed. ? 3. Monitor for incontinence and moisture control, use barrier creams when needed for prevention and treatment. 4. Provide adequate and supplemental nutrition.? 5. Order low air loss mattress. 6. When applicable maintain blood glucose levels per Providers order. 7. Right Plantar Heel wound - Cleanse and irrigate with NS, pat dry. Apply wound gel to the wound base with gauze. Apply ABD pad and gauze wrap change every other day. 8. Right Plantar Blister / Bulla - Cover with foam dressing. Peel back and assess Q shift change every 5 days and PRN. If bulla opens please contact inpatient wound care nurse. Recommend follow up out patient Wound Clinic at [address] [place] [id number] and to call for an appointment at time of discharge. [phone].? Re-consult wound care Nurse for wound deterioration or wound changes.
[2024-06-17] MEDS: Insulin Regular, Human 100 UNIT/ML 10 ML VIAL IVPUSH (15:55)
[2024-06-17] MEDS: Piperacillin Sodium/Tazobactam 4.5 GM in 0.9 % Sodium Chloride 100 ML IV (16:01)
[2024-06-17 16:06] LABS: Basophils Percent Auto 0.5 % (0-2); Eosinophils Percent Auto 0.4 % (0-4); Imm Gran Abs Auto 0.03 X10*3/uL (0.00-0.03); Imm Gran Pct Auto 0.4 % (0.0-0.4); Lymphocytes Absolute Auto 1.4 X10*3/uL (1.2-4.9); Lymphocytes Percent Auto 18.6 % (20-40); MANUAL DIFF FLAG NO; Mean Corpuscular HGB Conc 33.3 g/dl (31.0-35.0); Mean Platelet Volume 12.1 fL (9.4-12.3); Monocytes Absolute Auto 0.5 X10*3/uL (0.1-1.2); Monocytes Percent Auto 6.3 % (2-11); Neutrophils Absolute Auto 5.6 x10*3/uL (2.0-8.3); Neutrophils Percent Auto 73.8 % (45-73); Platelet Count 275 X10*3/uL (160-400); Red Blood Count 3.03 X10*6/uL (4.20-5.50); Red Cell Distribution Width 11.3 % (11.0-16.0); White Blood Count 7.6 X10*3/uL (4.8-10.8)
[2024-06-17 16:12] LABS: VBG Base Excess 5.9 mmol/L; VBG HCO3 28 mmol/L (22-26); VBG pCO2 34 mmHg; VBG pH 7.52 (7.32-7.43); VBG pO2 55 mmHg
[2024-06-17 16:38] LABS: Anion Gap 18 (12-20); Blood Urea Nitrogen 38 mg/dL (9-16); Calcium 9.8 mg/dL (8.4-10.2); Carbon Dioxide 25 mmol/L (22-29); Chloride 95 mmol/L (96-108); Creatinine Clr Calc Pharmacy 23.9; Estimated Glomerular Filt Rate 40; Glucose Random 491 mg/dL (60-115); Lactic Acid 2.7 mmol/L (0.5-2.0); Potassium 5.1 mmol/L (3.3-5.1); Sodium 133 mmol/L (135-145)
[2024-06-17] MEDS: ondansetron HCL 4 MG/2 ML VIAL IVPUSH ×2 (16:41→19:53)
[2024-06-17] MEDS: vancomycin HCL 1,000 MG in 0.9 % Sodium Chloride 250 ML 270 MG IV (16:42)
--- NOTE | 2024-06-17 16:43 | PC.NURSE ---
pt had short episode of vomiting (mostly mucous) following zosyn. is aware of admission and CTA of right food. new dressing in place from wound care nurse.
[2024-06-17 16:45] LABS: Glucose, Whole Blood 374 mg/dL (60-115)
[2024-06-17 16:46] LABS: Estimated Average Glucose 232 mg/dL; Hemoglobin A1c % 9.7 % (<6.0)
[2024-06-17 16:52] LABS: Venous Blood Gas Refer to POC result
[2024-06-17] MEDS: iohexoL 350 MG/ML 100 ML INFUS..BTL IV (17:01)
--- NOTE | 2024-06-17 17:37 | PM.IMHP ---
History of Present Illness Date of Service: 06/17/24 Chief Complaint: Cellulitis, Hyperglycemia An 84 years old Gabonese speaking lady with PMH of blindness, DMII, hypothyroid, HLD, HTN among others who presents with Right foot rash and pain. reports that he noticed a blister and tried to locally manage her opening it with clean scissors. They do not recall when did the blister appear or if any previous injury. over the last few days she started complaining of pain with increasing erythema with no reported drainage. No fever, chest pain, palpitations, SOB, nausea, vomiting, diarrhea or urinary symptoms. Npticed to have elevated blood sugar readings. HbA1c of 9.3. also had Lactic acidosis. Admitted for further evaluation and treatment. Review of Systems Review of Systems: No fever, chills or weakness No chest pain, palpitation No shortness of breath or coughing No abdominal pain, nausea or vomiting No urinary symptoms RLE erythema and pain PMFSH Medical History Pessary maintenance Hemorrhoids with complication Thyroid disease Heart problem Acute hemorrhoid Hypertension Diabetes 1.5, managed as type 2 Surgical History H/O heart surgery Social History Household Members: Spouse Housing: Apartment Alcohol intake: never Patient Tobacco Use Status: Never used Tobacco Advance Directives: No Advance Directives Information Provided: No Do you have a plan to hurt others: No Plan Sexual orientation: Straight/Heterosexual Gender identity: Female Meds Allergies Allergy/AdvReac Type Severity Reaction Status Date / Time No Known Allergies Allergy Unknown Verified 06/16/24 10:19 Active Medications: Current Medications Acetaminophen (Acetaminophen 325 Mg Tablet) 650 mg PO Q6H PRN PRN Reason: Pain Atorvastatin Calcium (Atorvastatin Calcium 80 Mg Tablet) 80 mg PO DAILY [facility] Last Admin: 06/17/24 08:26 Dose: 80 mg Calcium Carbonate/Cholecalciferol (Calcium + Vitamin D 250 Mg Tablet) 500 mg PO BID [facility] Last Admin: 06/17/24 08:25 Dose: 500 mg Cephalexin HCl (Cephalexin 500 Mg Capsule) 500 mg PO TID [facility] Last Admin: 06/17/24 13:50 Dose: 500 mg Ezetimibe (Ezetimibe 10 Mg Tablet) 10 mg PO DAILY [facility] Last Admin: 06/17/24 08:26 Dose: 10 mg Furosemide (Furosemide 20 Mg Tablet) 20 mg PO DAILY [facility]; Protocol Last Admin: 06/17/24 08:25 Dose: 20 mg Hydralazine HCl (Hydralazine Hcl 50 Mg Tablet) 50 mg PO BID [facility]; Protocol Last Admin: 06/17/24 08:26 Dose: 50 mg Insulin Glargine (Insulin Glargine,Hum.Rec.Anlog 100 Unit/Ml 10 Ml Vial) 13 unit SUBCUT BEDTIME [facility] Insulin Human Lispro (Insulin Lispro 100 Unit/Ml 3 Ml Vial) 0 unit SUBCUT QIDACHS [facility]; Protocol Last Admin: 06/17/24 13:49 Dose: 10 unit Levothyroxine Sodium (Levothyroxine Sodium 75 Mcg Tablet) 75 mcg PO DAILY@0600 [facility] Last Admin: 06/17/24 05:31 Dose: 75 mcg Sertraline HCl (Sertraline Hcl 50 Mg Tablet) 50 mg PO DAILY [facility] Last Admin: 06/17/24 08:25 Dose: 50 mg Home Medications ?Medication ?Instructions ?Recorded ?Confirmed ?Last Taken ?Type furosemide 20 mg tablet 20 mg PO DAILY 07/06/21 06/16/24 06/16/24 09:00 History hydralazine 50 mg tablet 50 mg PO BID 07/06/21 06/16/24 06/16/24 09:00 History insulin human U-100 NPH-regulr 19 unit subcut DAILY@1800 07/06/21 06/16/24 06/16/24 09:00 History 70-30 mix 100 unit/mL subcutaneous susp (Humulin 70/30 U-100 Insulin) acetaminophen 500 mg tablet 1,000 mg PO Q6H PRN Pain 06/16/24 06/16/24 Unknown History atorvastatin 80 mg tablet 80 mg PO DAILY 06/16/24 06/16/24 06/16/24 09:00 History calcium carbonate 600 mg-vitamin 1 cap PO BID 06/16/24 06/16/24 06/16/24 09:00 History D3 10 mcg (400 unit) capsule ezetimibe 10 mg tablet 10 mg PO DAILY 06/16/24 06/16/24 06/16/24 09:00 History insulin human U-100 NPH-regulr 6 unit subcut BEDTIME 06/16/24 06/16/24 Unknown History 70-30 mix 100 unit/mL subcutaneous susp (Humulin 70/30 U-100 Insulin) levothyroxine 75 mcg tablet 75 mcg PO DAILY@0600 06/16/24 06/16/24 06/16/24 09:00 History sertraline 50 mg tablet 50 mg PO DAILY 06/16/24 06/16/24 06/16/24 09:00 History Physical Exam Vital Signs and Narrative: Vital Signs: Last Vital Signs Temp 98.1 F 06/17/24 14:00 Pulse 87 06/17/24 14:00 Resp 18 06/17/24 14:00 BP 151/44 H 06/17/24 14:00 Pulse Ox 93 06/17/24 14:00 O2 Del Method Room Air 06/17/24 14:00 BMI result Body Mass Index 18.7 Const: Other: Constitutional : Awake, interactive, not in distress Neck : Normal inspection, Supple Cardiovascular : RRR, no JVP, no lower extremity edema Respiratory : good bilateral air entry, no crackles, wheezes or rhonchi Gastrointestinal: soft, lax, Normal bowel sounds, Non tender Skin : Warm, Dry, RLE heel erythema and tenderness, no draiange. Neurological : Alert & oriented x3, No focal deficit Results Labs 06/17/24 16:00 06/17/24 16:00 Labs: Laboratory Results - last 24 hr 06/16/24 06/16/24 06/17/24 18:14 21:00 07:06 MCV MCH MCHC RDW Plt Count MPV Immature Gran % (Auto) Neut % (Auto) Lymph % (Auto) Candler % (Auto) Eos % (Auto) Baso % (Auto) Lymph # (Auto) Candler # (Auto) Eos # (Auto) Baso # (Auto) Abs Immat Gran (auto) Absolute Neuts (auto) Absolute Nucleated RBC Nucleated RBC % (auto) VBG pH VBG pCO2 VBG pO2 VBG HCO3 VBG O2 Saturation VBG Base Excess Anion Gap Estim Creat Clear Calc Estimated GFR POC Glucose 154 H 275 H 470 H* Random Glucose Estimat Average Glucose Hemoglobin A1c % Lactic Acid Calcium 06/17/24 06/17/24 06/17/24 09:20 13:25 14:53 MCV MCH MCHC RDW Plt Count MPV Immature Gran % (Auto) Neut % (Auto) Lymph % (Auto) Candler % (Auto) Eos % (Auto) Baso % (Auto) Lymph # (Auto) Candler # (Auto) Eos # (Auto) Baso # (Auto) Abs Immat Gran (auto) Absolute Neuts (auto) Absolute Nucleated RBC Nucleated RBC % (auto) VBG pH VBG pCO2 VBG pO2 VBG HCO3 VBG O2 Saturation VBG Base Excess Anion Gap Estim Creat Clear Calc Estimated GFR POC Glucose 333 H 484 H* 500 H* Random Glucose Estimat Average Glucose Hemoglobin A1c % Lactic Acid Calcium 06/17/24 06/17/24 06/17/24 16:00 16:03 16:42 MCV 99.0 H MCH 33.0 MCHC 33.3 RDW 11.3 Plt Count 275 MPV 12.1 Immature Gran % (Auto) 0.4 Neut % (Auto) 73.8 H Lymph % (Auto) 18.6 L Candler % (Auto) 6.3 Eos % (Auto) 0.4 Baso % (Auto) 0.5 Lymph # (Auto) 1.4 Candler # (Auto) 0.5 Eos # (Auto) 0.0 Baso # (Auto) 0.0 Abs Immat Gran (auto) 0.03 Absolute Neuts (auto) 5.6 Absolute Nucleated RBC 0.000 Nucleated RBC % (auto) 0.0 VBG pH 7.52 H VBG pCO2 34 VBG pO2 55 VBG HCO3 28 H VBG O2 Saturation 88.0 VBG Base Excess 5.9 Anion Gap 18 Estim Creat Clear Calc 23.9 Estimated GFR 40 POC Glucose 374 H* Random Glucose 491 H* Estimat Average Glucose 232 Hemoglobin A1c % 9.7 H Lactic Acid 2.7 H* Calcium 9.8 Assessment and Plan (1) Cellulitis: Status: Acute (2) Diabetic foot ulcer: Status: Acute (3) Acute hyperglycemia: Status: Acute (4) Lactic acidosis: Status: Acute Plan An 84 years old Gabonese speaking lady with PMH of blindness, DMII, hypothyroid, HLD, HTN among others who presents with Right foot rash and pain. RLE cellulitis Not septic Pending PT scan to R\O OM check ESR Start Vancomycin , dc KEflex Local wound care Follow Vancomycin trough Lactic acidosis Likely 2/2 Dehydration and hyperglycemia not due to sepsis DC Lasix Give IVF and follow Hyperglycemia 2/2 Uncontrolled DMII HbA1c of 9.3 Change insulin to Lantus 15 units POC and SSI HTN, Hydralazine Hypothyroid, Levothyroxine DVT PPx Lovenox The patient will need 2 or more overnight hospital stay for treatment of Celluilitis and Hyperglycemia pending further imaging and possible inside solar sales consultant opinion Quality Stroke Does the patient have a stroke diagnosis?: No VTE Prior VTE?: No VTE Risk Level:: Medical - moderate - high VTE Device Contraindication: Treatment Not Indicated VTE Drug Contraindication: N/A - Med Ordered
[2024-06-17 18:05] LABS: Reflex Lactate? Lactic Acid Added
[2024-06-17 18:11] LABS: Glucose, Whole Blood 301 mg/dL (60-115)
--- NOTE | 2024-06-17 18:14 | PHA.PROG ---
Addendum entered by Nusrat Moses janine 06/18/24 15:59: Trough changed to 06/19 @ 1500 Original Note: Admission Date/Time: Indication: Skin Weight in k.266 kg Adjusted body weight in K.567 Serum Creatinine - Last 168 Hours 06/16/24 06/17/24 11:57 16:00 Creatinine 1.14 1.28 Estimated CrCl and GFR - Last 168 Hours 06/16/24 06/17/24 11:57 16:00 Estim Creat Clear Calc 26.8 23.9 Estimated GFR 45 40 Vancomycin Loading Dose: 1,000 mg Current Vancomycin Dosing Regimen: 750 mg Q24H Vancomycin Monitoring using AUC goal of 400 - 600 range with trough as surrogate marker: 560, predicted trough 18.4 Date and Time for next Vancomycin Level to be drawn: 06/18 @ 1500 Pharmacist Comments on Vancomycin Plan: Vancomycin dosing will take advantage of [employer] as a clinical decision support tool that uses Bayesian modeling to calculate individual patient's pharmacokinetic parameters and forecast the patient's drug concentration time course with the target goal AUC 24 range of 400 - 600 mg/L/hr.
[2024-06-17] MEDS: Enoxaparin Sodium 30 MG/0.3 ML SYRINGE SUBCUT (18:25)
[2024-06-17] MEDS: 0.9 % Sodium Chloride 1,000 ML 75 ML IVCONT (18:28)
[2024-06-17] MEDS: Insulin Glargine,Hum.rec.anlog 100 UNIT/ML 10 ML VIAL 15 UNIT SUBCUT (18:33)
--- NOTE | 2024-06-17 18:52 | PC.NURSE ---
declining meal at this time. alert.
--- NOTE | 2024-06-17 19:07 | PC.NURSE ---
assumed care of pt at 1900.
[2024-06-17 19:15] LABS: Glucose, Whole Blood 283 mg/dL (60-115)
[2024-06-17] MEDS: Calcium Carbonate 750 MG TAB.CHEW PO (19:53)
[2024-06-17 20:27] LABS: ~Lactic Acid-LAB USE ONLY 1.8 mmol/L (0.5-2.0)
[2024-06-17] MEDS: 0.9 % Sodium Chloride Flush 3 ML SYRINGE IVFLUSH (21:54)
[2024-06-18] VITALS (11 sets, daily range): BP systolic 158–203; BP diastolic 60–91; PULSE 71–90; RESP 16–18; TEMP 36.3–37.1; O2SAT 94–99
[2024-06-18] MEDS: Labetalol HCL 100 MG/20 ML VIAL 10 MG IVPUSH (05:02)
[2024-06-18] MEDS: Levothyroxine Sodium 75 MCG TABLET PO (05:07)
--- NOTE | 2024-06-18 05:21 | PC.NURSE ---
patient with HTN, MD Mendieta messaged in [employer] at 0055 for HTN, and again at 0410 for the same. IV labetelol administered and heart monitor put on patient.
[2024-06-18 06:51] LABS: Hematocrit 28.6 % (37.0-47.0); Hemoglobin 9.8 g/dl (12.0-16.0); Mean Corpuscular HGB Conc 34.3 g/dl (31.0-35.0); Mean Corpuscular Hemoglobin 33.9 pg (27.0-33.0); Mean Platelet Volume 12.7 fL (9.4-12.3); Platelet Count 262 X10*3/uL (160-400); Red Blood Count 2.89 X10*6/uL (4.20-5.50); Red Cell Distribution Width 11.4 % (11.0-16.0); White Blood Count 9.1 X10*3/uL (4.8-10.8)
[2024-06-18 07:09] LABS: Glucose, Whole Blood 107 mg/dL (60-115)
[2024-06-18 07:23] LABS: Carbon Dioxide 25 mmol/L (22-29); Chloride 100 mmol/L (96-108); Sodium 135 mmol/L (135-145)
[2024-06-18 07:24] LABS: Anion Gap 14 (12-20); Blood Urea Nitrogen 28 mg/dL (9-16); Calcium 9.4 mg/dL (8.4-10.2); Creatinine Clr Calc Pharmacy 29.8; Estimated Glomerular Filt Rate 50; Glucose Random 88 mg/dL (60-115)
[2024-06-18] MEDS: hydrALAZINE HCl 50 MG TABLET PO ×2 (08:51→20:21)
[2024-06-18] MEDS: Atorvastatin Calcium 80 MG TABLET PO (08:51)
[2024-06-18] MEDS: Ezetimibe 10 MG TABLET PO (08:51)
[2024-06-18] MEDS: Sertraline HCL 50 MG TABLET PO (08:51)
[2024-06-18] MEDS: Calcium + Vitamin D 250 MG TABLET 500 MG PO ×2 (08:51→20:22)
--- NOTE | 2024-06-18 10:55 | MHC.CM.PN ---
IMM 06/18. Pt is blind and Ecuadorean speaking. This CM met with pt and completed CM intake with pts Roby present at bedside who is Romanian speaking. Pt lives at home with her and he takes care of her, she uses a rollater walker. Educated on HCP, declined at this time. Pts would like outpt wound clinic services set up instead of VNA services for wound care. Pts will transport her home at discharge. PCP: Dr. Adelaida Broussard
[2024-06-18 11:14] LABS: Glucose, Whole Blood 397 mg/dL (60-115)
--- NOTE | 2024-06-18 11:19 | P.CDIM_ITS ---
PROVIDER RESPONSE TEXT: To clarify, the appropriate diagnosis supported by the clinical indicators: Acute QUERY TEXT: PHYSICIAN'S DOCUMENTATION REQUEST Date of Query: 06/18/2024 09:46 AM EDT Patient Name: Piedad Jeronimo Admit Date: 06/17/2024 Dear Los Stapleton MD, A review of the medical record indicates additional documentation may be needed. Please review below and update the documentation accordingly. Clinical Indicators: H&P: Lactic acidosis Likely 2/2 dehydration and hyperglycemia not due to Sepsis. IVF and follow Clarify which of the following accurately represents the acuity of the Lactic acidosis: Possible options might include: Acute Chronic Other (explain) Clinically unable to determine (explain) Thank you, Kandice Zapata, CCS, CDIS Use of terms such as suspected, likely, concern for, or probable (associated with a specific diagnosi s that is being evaluated, monitored, or treated as if it exists) are acceptable and can be coded in the inpatient se tting, when documented at the time of discharge. Please use your independent medical judgment in providing your response. THIS QUERY IS PART OF THE PERMANENT MEDICAL RECORD
[2024-06-18] MEDS: Insulin Lispro 100 UNIT/ML 3 ML VIAL SUBCUT ×4 (11:55→20:21)
--- NOTE | 2024-06-18 12:50 | P.PNIM_ITS ---
Subjective Subjective Date of Service: 06/18/24 Interval History: seen and evaluated feels better but still having pain in foot and heel denies any fever or chills no other events Review of Systems Review of Systems: Yes all other systems are reviewed and are negative Physical Exam 2 Vital Signs: Vital Signs: Last Vital Signs Temp 98 F 06/18/24 11:00 Pulse 82 06/18/24 11:00 Resp 16 06/18/24 11:00 BP 159/62 H 06/18/24 11:00 Pulse Ox 96 06/18/24 11:00 O2 Del Method Room Air 06/18/24 11:00 BMI result Body Mass Index 19.2 Const: Other: Constitutional : Awake, interactive, not in distress Neck : Normal inspection, Supple Cardiovascular : RRR, no JVP, no lower extremity edema Respiratory : good bilateral air entry, no crackles, wheezes or rhonchi Gastrointestinal: soft, lax, Normal bowel sounds, Non tender Skin : Warm, Dry, RLE heel erythema and tenderness, no draiange. Neurological : Alert & oriented x3, No focal deficit Objective Data Active Medications Acetaminophen (Acetaminophen 325 Mg Tablet) 650 mg PO Q6H PRN PRN Reason: Pain Atorvastatin Calcium (Atorvastatin Calcium 80 Mg Tablet) 80 mg PO DAILY [facility] Last Admin: 06/18/24 08:51 Dose: 80 mg Documented By: KIMBERLEE Calcium Carbonate (Calcium Carbonate 750 Mg Tab.Chew) 750 mg PO Q4H PRN PRN Reason: Heartburn Last Admin: 06/17/24 19:53 Dose: 750 mg Documented By: ARIAN Calcium Carbonate/Cholecalciferol (Calcium + Vitamin D 250 Mg Tablet) 500 mg PO BID [facility] Last Admin: 06/18/24 08:51 Dose: 500 mg Documented By: KIMBERLEE Ezetimibe (Ezetimibe 10 Mg Tablet) 10 mg PO DAILY [facility] Last Admin: 06/18/24 08:51 Dose: 10 mg Documented By: KIMBERLEE Enoxaparin Sodium (Enoxaparin Sodium 30 Mg/0.3 Ml Syringe) 30 mg SUBCUT Q24H [facility] Last Admin: 06/17/24 18:25 Dose: 30 mg Documented By: JENN Furosemide (Furosemide 20 Mg Tablet) 20 mg PO DAILY [facility]; Protocol Last Admin: 06/17/24 08:25 Dose: 20 mg Documented By: JENN Hydralazine HCl (Hydralazine Hcl 50 Mg Tablet) 50 mg PO BID [facility]; Protocol Last Admin: 06/18/24 08:51 Dose: 50 mg Documented By: KIMBERLEE Vancomycin HCl 750 mg/ Sodium (Chloride) 265 mls @ 265 mls/hr IV Q24H [facility] Insulin Human Lispro (Insulin Lispro 100 Unit/Ml 3 Ml Vial) 0 unit SUBCUT QIDACHS [facility]; Protocol Last Admin: 06/18/24 11:55 Dose: 10 unit Documented By: KIMBERLEE Insulin Human Lispro (Insulin Lispro 100 Unit/Ml 3 Ml Vial) 0 unit SUBCUT QIDACHS [facility]; Protocol Last Admin: 06/18/24 11:56 Dose: Not Given Documented By: KIMBERLEE Non-Admin Reason: Duplicate Order Levothyroxine Sodium (Levothyroxine Sodium 75 Mcg Tablet) 75 mcg PO DAILY@0600 [facility] Last Admin: 06/18/24 05:07 Dose: 75 mcg Documented By: EDUARD Magnesium Hydroxide (Milk Of Magnesia 30 Ml Oral.Susp) 30 ml PO DAILY PRN PRN Reason: Constipation Melatonin (Melatonin 3 Mg Tablet) 6 mg PO BEDTIME PRN PRN Reason: Insomnia Ondansetron HCl (Ondansetron Hcl 4 Mg/2 Ml Vial) 4 mg IVPUSH Q8H PRN PRN Reason: Nausea and Vomiting Last Admin: 06/17/24 19:53 Dose: 4 mg Documented By: ARIAN Pharmacy Consult (Consult Rx Vancomycin Dosing) 1 each MISCELLANE DAILY PRN PRN Reason: Consult order Polyethylene Glycol (Polyethylene Glycol 3350 17 Gm Powd.Pack) 17 gm PO BID [facility] Last Admin: 06/18/24 12:26 Dose: Not Given Documented By: KIMBERLEE Non-Admin Reason: Patient Refused Sertraline HCl (Sertraline Hcl 50 Mg Tablet) 50 mg PO DAILY [facility] Last Admin: 06/18/24 08:51 Dose: 50 mg Documented By: KIMBERLEE Sodium Chloride (0.9 % Sodium Chloride Flush 3 Ml Syringe) 3 ml IVFLUSH QSHIFT [facility] Last Admin: 06/18/24 07:24 Dose: Not Given Documented By: KIMBERLEE Non-Admin Reason: IV Running Labs 06/18/24 05:58 06/18/24 05:58 Labs: Laboratory Results - last 24 hr 06/17/24 06/17/24 06/17/24 13:25 14:53 16:00 MCV 99.0 H MCH 33.0 MCHC 33.3 RDW 11.3 Plt Count 275 MPV 12.1 Immature Gran % (Auto) 0.4 Neut % (Auto) 73.8 H Lymph % (Auto) 18.6 L [place] % (Auto) 6.3 Eos % (Auto) 0.4 Baso % (Auto) 0.5 Lymph # (Auto) 1.4 [place] # (Auto) 0.5 Eos # (Auto) 0.0 Baso # (Auto) 0.0 Abs Immat Gran (auto) 0.03 Absolute Neuts (auto) 5.6 Absolute Nucleated RBC 0.000 Nucleated RBC % (auto) 0.0 VBG pH VBG pCO2 VBG pO2 VBG HCO3 VBG O2 Saturation VBG Base Excess Anion Gap 18 Estim Creat Clear Calc 23.9 Estimated GFR 40 POC Glucose 484 H* 500 H* Random Glucose 491 H* Estimat Average Glucose 232 Hemoglobin A1c % 9.7 H Lactic Acid 2.7 H* Lactic Acid F/U @ 2Hr Calcium 9.8 06/17/24 06/17/24 06/17/24 16:03 16:42 18:07 MCV MCH MCHC RDW Plt Count MPV Immature Gran % (Auto) Neut % (Auto) Lymph % (Auto) [place] % (Auto) Eos % (Auto) Baso % (Auto) Lymph # (Auto) [place] # (Auto) Eos # (Auto) Baso # (Auto) Abs Immat Gran (auto) Absolute Neuts (auto) Absolute Nucleated RBC Nucleated RBC % (auto) VBG pH 7.52 H VBG pCO2 34 VBG pO2 55 VBG HCO3 28 H VBG O2 Saturation 88.0 VBG Base Excess 5.9 Anion Gap Estim Creat Clear Calc Estimated GFR POC Glucose 374 H* 301 H Random Glucose Estimat Average Glucose Hemoglobin A1c % Lactic Acid Lactic Acid F/U @ 2Hr Calcium 06/17/24 06/17/24 06/18/24 19:11 20:06 05:58 MCV 99.0 H MCH 33.9 H MCHC 34.3 RDW 11.4 Plt Count 262 MPV 12.7 H Immature Gran % (Auto) Neut % (Auto) Lymph % (Auto) [place] % (Auto) Eos % (Auto) Baso % (Auto) Lymph # (Auto) [place] # (Auto) Eos # (Auto) Baso # (Auto) Abs Immat Gran (auto) Absolute Neuts (auto) Absolute Nucleated RBC 0.000 Nucleated RBC % (auto) 0.0 VBG pH VBG pCO2 VBG pO2 VBG HCO3 VBG O2 Saturation VBG Base Excess Anion Gap 14 Estim Creat Clear Calc 29.8 Estimated GFR 50 POC Glucose 283 H Random Glucose 88 Estimat Average Glucose Hemoglobin A1c % Lactic Acid Lactic Acid F/U @ 2Hr 1.8 Calcium 9.4 06/18/24 06/18/24 07:03 11:07 MCV MCH MCHC RDW Plt Count MPV Immature Gran % (Auto) Neut % (Auto) Lymph % (Auto) [place] % (Auto) Eos % (Auto) Baso % (Auto) Lymph # (Auto) [place] # (Auto) Eos # (Auto) Baso # (Auto) Abs Immat Gran (auto) Absolute Neuts (auto) Absolute Nucleated RBC Nucleated RBC % (auto) VBG pH VBG pCO2 VBG pO2 VBG HCO3 VBG O2 Saturation VBG Base Excess Anion Gap Estim Creat Clear Calc Estimated GFR POC Glucose 107 397 H* Random Glucose Estimat Average Glucose Hemoglobin A1c % Lactic Acid Lactic Acid F/U @ 2Hr Calcium Microbiology Microbiology Results: Microbiology 06/16/24 11:57 Blood Culture - Preliminary Blood - Venous No growth after 24 hours. 06/16/24 11:17 Blood Culture - Preliminary Blood - Venous No growth after 24 hours. Assessment and Plan (1) Cellulitis: Status: Acute (2) Lactic acidosis: Status: Acute (3) Diabetic foot ulcer: Status: Acute Plan An 84 years old Sinhala speaking lady with PMH of blindness, DMII, hypothyroid, HLD, HTN among others who presents with Right foot rash and pain. RLE cellulitis Not septic CT scan not showing any bone involvement Continue Vancomycin , dc KEflex Local wound care Follow Vancomycin trough Lactic acidosis Likely 2/2 Dehydration and hyperglycemia not due to sepsis hold Lasix dc IVF Hyperglycemia 2/2 Uncontrolled DMII HbA1c of 9.3 Change insulin to Lantus 18 units , will need higher dosage of insulin. if husban helping can consider Lantus and SSI for better control POC and SSI HTN, Hydralazine Hypothyroid, Levothyroxine DVT PPx Lovenox The patient will need overnight hospital stay for treatment of Celluilitis and Hyperglycemia pending further imaging and possible golf tournament consultant opinion Quality Stroke Does the patient have a stroke diagnosis?: No VTE Prior VTE?: No VTE Risk Level:: Medical - moderate - high VTE Device Contraindication: Treatment Not Indicated VTE Drug Contraindication: N/A - Med Ordered
[2024-06-18] MEDS: Insulin Glargine,Hum.rec.anlog 100 UNIT/ML 10 ML VIAL 18 UNIT SUBCUT (14:19)
[2024-06-18 16:27] LABS: Glucose, Whole Blood 268 mg/dL (60-115)
[2024-06-18] MEDS: Enoxaparin Sodium 30 MG/0.3 ML SYRINGE SUBCUT (17:24)
[2024-06-18] MEDS: vancomycin HCL 750 MG in 0.9 % Sodium Chloride 250 ML 265 MG IV (17:24)
[2024-06-18] MEDS: 0.9 % Sodium Chloride Flush 3 ML SYRINGE IVFLUSH ×2 (17:29→20:24)
[2024-06-18 20:06] LABS: Glucose, Whole Blood 189 mg/dL (60-115)
[2024-06-19] VITALS (13 sets, daily range): BP systolic 138–190; BP diastolic 58–77; PULSE 61–84; RESP 16–18; TEMP 36.1–37.1; O2SAT 93–95
[2024-06-19] MEDS: hydrALAZINE HCl 20 MG/ML VIAL 10 MG IVPUSH (05:47)
[2024-06-19] MEDS: Levothyroxine Sodium 75 MCG TABLET PO (05:53)
--- NOTE | 2024-06-19 06:35 | PC.NURSE ---
Pt's BP elevated this morning 190/70. MD Mendieta notified of the situation. One time dose of Hydralazine 10mg IV administered to pt at 05:47 with good effect. Monitoring pt's BP every 10min x1hr. See vital sign via worklist. Will continue to monitor pt's BP.
[2024-06-19 06:51] LABS: Hematocrit 28.6 % (37.0-47.0); Hemoglobin 9.8 g/dl (12.0-16.0); Mean Corpuscular HGB Conc 34.3 g/dl (31.0-35.0); Mean Corpuscular Hemoglobin 33.8 pg (27.0-33.0); Mean Corpuscular Volume 98.6 fL (80.0-98.0); Mean Platelet Volume 12.4 fL (9.4-12.3); Platelet Count 286 X10*3/uL (160-400); Red Cell Distribution Width 11.6 % (11.0-16.0); White Blood Count 8.5 X10*3/uL (4.8-10.8)
[2024-06-19 06:58] LABS: Anion Gap 13 (12-20); Blood Urea Nitrogen 22 mg/dL (9-16); Calcium 9.5 mg/dL (8.4-10.2); Carbon Dioxide 27 mmol/L (22-29); Chloride 98 mmol/L (96-108); Estimated Glomerular Filt Rate > 60; Glucose Random 111 mg/dL (60-115); Potassium 4.1 mmol/L (3.3-5.1); Sodium 134 mmol/L (135-145)
[2024-06-19 07:01] LABS: Estimated Glomerular Filt Rate > 60
[2024-06-19 07:34] LABS: Glucose, Whole Blood 155 mg/dL (60-115)
[2024-06-19] MEDS: Calcium + Vitamin D 250 MG TABLET 500 MG PO (08:15)
[2024-06-19] MEDS: Sertraline HCL 50 MG TABLET PO (08:15)
[2024-06-19] MEDS: Atorvastatin Calcium 80 MG TABLET PO (08:16)
[2024-06-19] MEDS: 0.9 % Sodium Chloride Flush 3 ML SYRINGE IVFLUSH ×2 (08:16→16:34)
[2024-06-19] MEDS: Insulin Glargine,Hum.rec.anlog 100 UNIT/ML 10 ML VIAL 18 UNIT SUBCUT (08:16)
[2024-06-19] MEDS: Ezetimibe 10 MG TABLET PO (08:16)
[2024-06-19] MEDS: Insulin Lispro 100 UNIT/ML 3 ML VIAL SUBCUT ×3 (08:16→16:34)
[2024-06-19] MEDS: hydrALAZINE HCl 50 MG TABLET PO (08:16)
[2024-06-19] MEDS: polyethylene glycoL 3350 17 GM POWD.PACK PO (08:27)
[2024-06-19] MEDS: Psyllium seed 3.7 GM PACKET PO (10:40)
[2024-06-19 11:28] LABS: Glucose, Whole Blood 296 mg/dL (60-115)
--- NOTE | 2024-06-19 11:35 | P.PNIM_ITS ---
Subjective Subjective Date of Service: 06/19/24 Interval History: seen and evaluated feels better but still having pain in foot and heel reporting constipation for 7 days now denies any fever or chills no other events Review of Systems Review of Systems: Yes all other systems are reviewed and are negative Physical Exam 2 Vital Signs: Vital Signs: Last Vital Signs Temp 98.3 F 06/19/24 07:22 Pulse 79 06/19/24 07:22 Resp 16 06/19/24 07:22 BP 154/68 H 06/19/24 07:22 Pulse Ox 94 06/19/24 07:22 O2 Del Method Room Air 06/19/24 07:22 BMI result Body Mass Index 19.2 Const: Other: Constitutional : Awake, interactive, not in distress Neck : Normal inspection, Supple Cardiovascular : RRR, no JVP, no lower extremity edema Respiratory : good bilateral air entry, no crackles, wheezes or rhonchi Gastrointestinal: soft, lax, Normal bowel sounds, Non tender Skin : Warm, Dry, RLE mild heel erythema and tenderness, no draiange. Neurological : Alert & oriented x3, No focal deficit Objective Data Active Medications Acetaminophen (Acetaminophen 325 Mg Tablet) 650 mg PO Q6H PRN PRN Reason: Pain Atorvastatin Calcium (Atorvastatin Calcium 80 Mg Tablet) 80 mg PO DAILY [facility] Last Admin: 06/19/24 08:16 Dose: 80 mg Documented By: KIMBERLEE Calcium Carbonate (Calcium Carbonate 750 Mg Tab.Chew) 750 mg PO Q4H PRN PRN Reason: Heartburn Last Admin: 06/17/24 19:53 Dose: 750 mg Documented By: ARIAN Calcium Carbonate/Cholecalciferol (Calcium + Vitamin D 250 Mg Tablet) 500 mg PO BID [facility] Last Admin: 06/19/24 08:15 Dose: 500 mg Documented By: KIMBERLEE Ezetimibe (Ezetimibe 10 Mg Tablet) 10 mg PO DAILY [facility] Last Admin: 06/19/24 08:16 Dose: 10 mg Documented By: KIMBERLEE Enoxaparin Sodium (Enoxaparin Sodium 40 Mg/0.4 Ml Syringe) 40 mg SUBCUT Q24H [facility] Furosemide (Furosemide 20 Mg Tablet) 20 mg PO DAILY [facility]; Protocol Last Admin: 06/17/24 08:25 Dose: 20 mg Documented By: JENN Hydralazine HCl (Hydralazine Hcl 50 Mg Tablet) 50 mg PO BID [facility]; Protocol Last Admin: 06/19/24 08:16 Dose: 50 mg Documented By: KIMBERLEE Vancomycin HCl 750 mg/ Sodium (Chloride) 265 mls @ 265 mls/hr IV Q24H [facility] Last Infusion: 06/18/24 19:50 Dose: Infused Documented By: JOSE EDUARDO Insulin Glargine (Insulin Glargine,Hum.Rec.Anlog 100 Unit/Ml 10 Ml Vial) 18 unit SUBCUT DAILY [facility] Last Admin: 06/19/24 08:16 Dose: 18 unit Documented By: KIMBERLEE Insulin Human Lispro (Insulin Lispro 100 Unit/Ml 3 Ml Vial) 0 unit SUBCUT QIDACHS [facility]; Protocol Last Admin: 06/19/24 08:16 Dose: 2 unit Documented By: KIMBERLEE Levothyroxine Sodium (Levothyroxine Sodium 75 Mcg Tablet) 75 mcg PO DAILY@0600 [facility] Last Admin: 06/19/24 05:53 Dose: 75 mcg Documented By: JOSE EDUARDO Magnesium Hydroxide (Milk Of Magnesia 30 Ml Oral.Susp) 30 ml PO DAILY PRN PRN Reason: Constipation Melatonin (Melatonin 3 Mg Tablet) 6 mg PO BEDTIME PRN PRN Reason: Insomnia Ondansetron HCl (Ondansetron Hcl 4 Mg/2 Ml Vial) 4 mg IVPUSH Q8H PRN PRN Reason: Nausea and Vomiting Last Admin: 06/17/24 19:53 Dose: 4 mg Documented By: ARIAN Pharmacy Consult (Consult Rx Vancomycin Dosing) 1 each MISCELLANE DAILY PRN PRN Reason: Consult order Polyethylene Glycol (Polyethylene Glycol 3350 17 Gm Powd.Pack) 17 gm PO BID [facility] Last Admin: 06/19/24 08:27 Dose: 17 gm Documented By: KIMBERLEE Psyllium Hydrophilic Mucilloid (Psyllium Seed 3.7 Gm Packet) 3.7 gm PO DAILY [facility] Last Admin: 06/19/24 10:40 Dose: 3.7 gm Documented By: KIMBERLEE Sertraline HCl (Sertraline Hcl 50 Mg Tablet) 50 mg PO DAILY [facility] Last Admin: 06/19/24 08:15 Dose: 50 mg Documented By: KIMBERLEE Sodium Chloride (0.9 % Sodium Chloride Flush 3 Ml Syringe) 3 ml IVFLUSH QSHIFT [facility] Last Admin: 06/19/24 08:16 Dose: 3 ml Documented By: KIMBERLEE Labs 06/19/24 06:04 06/19/24 06:04 Labs: Laboratory Results - last 24 hr 06/18/24 06/18/24 06/19/24 16:24 19:48 06:04 MCV 98.6 H MCH 33.8 H MCHC 34.3 RDW 11.6 Plt Count 286 MPV 12.4 H Absolute Nucleated RBC 0.000 Nucleated RBC % (auto) 0.0 Anion Gap 13 Estim Creat Clear Calc 36.0 Estimated GFR POC Glucose 268 H 189 H Random Glucose Calcium 06/19/24 06/19/24 06/19/24 06:04 06:04 07:30 MCV MCH MCHC RDW Plt Count MPV Absolute Nucleated RBC Nucleated RBC % (auto) Anion Gap Estim Creat Clear Calc 36.0 Estimated GFR > 60 > 60 POC Glucose 155 H Random Glucose 111 Calcium 9.5 06/19/24 11:19 MCV MCH MCHC RDW Plt Count MPV Absolute Nucleated RBC Nucleated RBC % (auto) Anion Gap Estim Creat Clear Calc Estimated GFR POC Glucose 296 H Random Glucose Calcium Microbiology Microbiology Results: Microbiology 06/16/24 11:57 Blood Culture - Preliminary Blood - Venous No growth after 48 hours. 06/16/24 11:17 Blood Culture - Preliminary Blood - Venous No growth after 48 hours. Assessment and Plan (1) Cellulitis: Status: Acute (2) Lactic acidosis: Status: Acute (3) Diabetic foot ulcer: Status: Acute (4) Acute hyperglycemia: Status: Acute (5) Constipation: Status: Acute Plan An 84 years old Malay speaking lady with PMH of blindness, DMII, hypothyroid, HLD, HTN among others who presents with Right foot rash and pain. RLE cellulitis Not septic CT scan not showing any bone involvement Continue Vancomycin , dc Keflex Local wound care , will need Wound care clinic follow up Follow Vancomycin trough Lactic acidosis Likely 2/2 Dehydration and hyperglycemia not due to sepsis hold Lasix dc IVF severe constipation reports 7 days with no BM Miralax, Metamucil try Enema Hyperglycemia 2/2 Uncontrolled DMII HbA1c of 9.3 Change insulin to Lantus 22 units , will need higher dosage of insulin. does not want to change her Insulin therapy upon discharge. POC and SSI HTN, Hydralazine Hypothyroid, Levothyroxine DVT PPx Lovenox The patient will need overnight hospital stay for treatment of Celluilitis and Hyperglycemia pending improvement and bowel movement Quality Stroke Does the patient have a stroke diagnosis?: No VTE Prior VTE?: No VTE Risk Level:: Medical - moderate - high VTE Device Contraindication: Treatment Not Indicated VTE Drug Contraindication: N/A - Med Ordered
[2024-06-19] MEDS: ondansetron HCL 4 MG/2 ML VIAL IVPUSH ×2 (12:07→20:34)
[2024-06-19] MEDS: hydrALAZINE HCl 20 MG/ML VIAL 5 MG IVPUSH (12:46)
--- NOTE | 2024-06-19 13:42 | HO.WOUND ---
Wound Consult: Follow up 84yr old?female admitted to [facility] on 06/17/24 - See progress notes and H&P for detailed history.? Wound consult follow up for Right Foot wound present on admission.? Patient and her agreeable to assessment and photo documentation.? Chart review reveals the heel initially presented as a blister / bulla that the patients then opened for healing. A1C resulted as 9.7. Patients / hospice spiritual care coordinator educated on the importance of maintain glucose numbers with in defined parameters. 06/17/24 06/19/24 Right Plantar Wound Etiology: ??Diabetic Wound Wound Bed: Ruptured bulla with light purple base Drainage / Odor: serous drainage Edges: ? well defined June wound: Intact - no erythema and no pain noted -? No Induration, Fluctuance or Warmth noted Pain: denies Goals of Treatment: ?Betadine to dry and cover with dry dressing - Off load pressure and protective covering Right Plantar Heel Etiology: ??Diabetic Wound Wound Bed: pink moist wound with scattered thin yellow slough no longer with central bogginess noted Drainage / Odor: wound gel dressing and gauze dried to wound bed Edges: ? well defined June wound: Intact tissue, +PP, no swelling noted - no erythema noted -? No Induration, Fluctuance or Warmth noted Pain: reports pain when assessed Goals of Treatment: ? Off load pressure and moist wound healing with Durafiber AG - After a long discussion with the patient I am not confident he will acuratly provide wound care - he repeatedly kept wanting to leave the wond open to air and maybe apply some ointment. He was educated on my role in his wifes care but ultimatly we discussed VNA services providing dressing chnages and assessment until he is able to get a follow up with the outpt wound clinic - he was agreeable to this. Patient will need VNA follow up at time of d/c and will need follow up at the wound clinic for wound healing. Supplies provided to patient for d/c planning. Recommendations: 1. Turn and Reposition every 2 hours and as needed for patient comfort.? Use pillows or wedges to support off loading positions. 2. Off Load all bony prominences with use of pillows and heel boots if needed.? Apply Preventative foams where needed. ? 3. Monitor for incontinence and moisture control, use barrier creams when needed for prevention and treatment. 4. Provide adequate and supplemental nutrition.? 5. Order low air loss mattress. 6. When applicable maintain blood glucose levels per Providers order. 7. Right Plantar Heel wound - Off Load Pressure - Limit walking and standing on left foot. Cleanse and irrigate with NS, pat dry. Apply Durafiber AG to wound bed cover with ABD pad and gauze wrap, Change every other day - every 3 days if wound bed remains dry. 8. Right Plantar Blister / Bulla - Off Load Pressure - Limit walking and standing on left foot. Cleanse and paint with betadine cover with dry gauze dressing change daily. Recommend follow up out patient Wound Clinic at [address] [place] [id number] and to call for an appointment at time of discharge. [phone].? Re-consult wound care Nurse for wound deterioration or wound changes.
--- NOTE | 2024-06-19 16:01 | MHC.CM.PN ---
Addendum entered by Denae Simon 06/19/24 16:16: [facility] has accepted pt. Original Note: Anticipating discharge tomorrow home with her with new VNA services (awaiting agency acceptance), and wound clinic services.
[2024-06-19 16:03] LABS: Glucose, Whole Blood 204 mg/dL (60-115)
[2024-06-19 16:11] LABS: Vancomycin Random 11.7 mcg/mL (15-20)
[2024-06-19] MEDS: vancomycin HCL 750 MG in 0.9 % Sodium Chloride 250 ML 265 MG IV (16:33)
[2024-06-19] MEDS: Enoxaparin Sodium 40 MG/0.4 ML SYRINGE SUBCUT (16:33)
[2024-06-19 19:55] LABS: Glucose, Whole Blood 103 mg/dL (60-115)
[2024-06-20 03:59] VITALS: BP 178/64; PULSE 80; RESP 18; TEMP 36.6; O2SAT 94
[2024-06-20 06:44] LABS: Anion Gap 13 (12-20); Blood Urea Nitrogen 29 mg/dL (9-16); Calcium 8.9 mg/dL (8.4-10.2); Carbon Dioxide 28 mmol/L (22-29); Chloride 100 mmol/L (96-108); Creatinine Clr Calc Pharmacy 25.7; Estimated Glomerular Filt Rate 42; Glucose Random 185 mg/dL (60-115); Potassium 4.5 mmol/L (3.3-5.1); Sodium 136 mmol/L (135-145)
[2024-06-20 06:45] LABS: Hematocrit 29.7 % (37.0-47.0); Hemoglobin 9.9 g/dl (12.0-16.0); Mean Corpuscular HGB Conc 33.3 g/dl (31.0-35.0); Mean Platelet Volume 12.8 fL (9.4-12.3); Platelet Count 312 X10*3/uL (160-400); Red Cell Distribution Width 11.8 % (11.0-16.0); White Blood Count 9.8 X10*3/uL (4.8-10.8)
[2024-06-20 07:30] VITALS: BP 168/70; PULSE 83; RESP 17; TEMP 37.3; O2SAT 92
[2024-06-20 07:35] LABS: Glucose, Whole Blood 167 mg/dL (60-115)
[2024-06-20] MEDS: Insulin Glargine,Hum.rec.anlog 100 UNIT/ML 10 ML VIAL 22 UNIT SUBCUT (08:16)
[2024-06-20] MEDS: Insulin Lispro 100 UNIT/ML 3 ML VIAL SUBCUT (08:16)
[2024-06-20] MEDS: hydrALAZINE HCl 25 MG TABLET 75 MG PO (08:16)
[2024-06-20] MEDS: Psyllium seed 3.7 GM PACKET PO (08:17)
[2024-06-20] MEDS: Atorvastatin Calcium 80 MG TABLET PO (08:17)
[2024-06-20] MEDS: Sertraline HCL 50 MG TABLET PO (08:17)
[2024-06-20] MEDS: Losartan Potassium 25 MG TABLET PO (08:17)
[2024-06-20] MEDS: 0.9 % Sodium Chloride Flush 3 ML SYRINGE IVFLUSH (08:17)
[2024-06-20] MEDS: polyethylene glycoL 3350 17 GM POWD.PACK PO (08:17)
[2024-06-20] MEDS: Ezetimibe 10 MG TABLET PO (08:17)
[2024-06-20] MEDS: Calcium + Vitamin D 250 MG TABLET 500 MG PO (08:26)
--- NOTE | 2024-06-20 10:54 | PM.DS ---
DS: Providers Provider Date of Service: 06/20/24 Date of admission: 06/17/24 17:33 Date of discharge: 06/20/24 Primary care physician: Adelaida Broussard MD Consults: 06/16/24 12:58 Consult to Wound Care Routine Reason for consultation: open wounds on R foot - diabetic, pictures in chart Has provider been notified: Yes DS: Diagnosis Discharge Diagnosis (1) Cellulitis: Status: Acute (2) Lactic acidosis: Status: Acute (3) Diabetic foot ulcer: Status: Acute (4) Acute hyperglycemia: Status: Acute (5) Constipation: Status: Acute DS: Summary Hospital Course Hospital Course: from initial hpi: 84 years old Ghanaian speaking lady with PMH of blindness, DMII, hypothyroid, HLD, HTN among others who presents with Right foot rash and pain. reports that he noticed a blister and tried to locally manage her opening it with clean scissors. They do not recall when did the blister appear or if any previous injury. over the last few days she started complaining of pain with increasing erythema with no reported drainage. No fever, chest pain, palpitations, SOB, nausea, vomiting, diarrhea or urinary symptoms. Npticed to have elevated blood sugar readings. HbA1c of 9.3. also had Lactic acidosis. Admitted for further evaluation and treatment. hospital course: Patient was admitted for right lower extremity cellulitis. CT scan did not show any bone involvement. She was treated with vancomycin. Local wound care. She will continue with wound care as outpatient. On discharge will continue 5 more days of doxycycline. For severe constipation she finally had a bowel movement after several laxatives and enema. On discharge will continue with Metamucil. For diabetes with hyperglycemia she was continued on basal bolus insulin. Recommendations were to increase dose, however she has decided against this. For hypertension was continued on hydralazine, for hypothyroidism was continued on Synthroid. Patient will be discharged home. Time Attestation Discharge Coordination Time (in mins): 34 Quality: Safe Use of Opioids Does Pt have an Active Cancer Diagnosis on the Problem List?: No Quality: Stroke Does the patient have a stroke diagnosis?: No Physical Exam Vital Signs: Vital Signs: Last Vital Signs Temp 99.1 F 06/20/24 07:30 Pulse 83 06/20/24 07:30 Resp 17 06/20/24 07:30 BP 168/70 H 06/20/24 07:30 Pulse Ox 92 06/20/24 07:30 O2 Del Method Room Air 06/20/24 07:30 BMI result Body Mass Index 19.2 Const: Other: Constitutional : Awake, interactive, not in distress Neck : Normal inspection, Supple Cardiovascular : RRR, no JVP, no lower extremity edema Respiratory : good bilateral air entry, no crackles, wheezes or rhonchi Gastrointestinal: soft, lax, Normal bowel sounds, Non tender Skin : Warm, Dry, RLE mild heel erythema and tenderness, no draiange. Neurological : Alert & oriented x3, No focal deficit DS: Data Data Completed and Pending Labs on day of discharge: Laboratory Results - last 24 hr 06/19/24 06/19/24 06/19/24 11:19 14:52 15:59 WBC RBC Hgb Hct MCV MCH MCHC RDW Plt Count MPV Absolute Nucleated RBC Nucleated RBC % (auto) Sodium Potassium Chloride Carbon Dioxide Anion Gap BUN Creatinine Estim Creat Clear Calc Estimated GFR POC Glucose 296 H 204 H Random Glucose Calcium Random Vancomycin 11.7 L 06/19/24 06/20/24 06/20/24 19:43 05:48 07:27 WBC 9.8 RBC 3.00 L Hgb 9.9 L Hct 29.7 L MCV 99.0 H MCH 33.0 MCHC 33.3 RDW 11.8 Plt Count 312 MPV 12.8 H Absolute Nucleated RBC 0.000 Nucleated RBC % (auto) 0.0 Sodium 136 Potassium 4.5 Chloride 100 Carbon Dioxide 28 Anion Gap 13 BUN 29 H Creatinine 1.22 Estim Creat Clear Calc 25.7 Estimated GFR 42 POC Glucose 103 167 H Random Glucose 185 H Calcium 8.9 D Random Vancomycin Preliminary micro results at discharge 06/16/24 11:57 Blood Culture - Preliminary Blood - Venous No growth after 48 hours. 06/16/24 11:17 Blood Culture - Preliminary Blood - Venous No growth after 48 hours. Discharge Plan Discharge Anticipated Discharge Date/Time: 06/20/24 10:51 Patient Disposition: Home Health Service Discharge Diagnosis: cellulitis, constipation Referrals: Nohemy PAUL [Outside] - 1 Week Adelaida Broussard MD [Primary Care Provider] - 1 Week Discharge Medications: New Hydrocil Instant Packet 1 packet PO DAILY Qty: 90 0RF losartan 25 mg Tablet 25 mg PO DAILY Qty: 90 0RF Protocol: Hold for SBP< HOLD for SBP < : 90 doxycycline hyclate 100 mg capsule 100 mg PO BID Qty: 10 0RF Continued atorvastatin 80 mg tablet 80 mg PO DAILY levothyroxine 75 mcg tablet 75 mcg PO DAILY@0600 sertraline 50 mg tablet 50 mg PO DAILY ezetimibe 10 mg tablet 10 mg PO DAILY Humulin 70/30 U-100 Insulin 100 unit/mL (70-30) suspension 6 unit subcut BEDTIME acetaminophen 500 mg Tablet 1,000 mg PO Q6H PRN (Reason: Pain) calcium carbonate-vitamin D3 600 mg-10 mcg (400 unit) Capsule 1 cap PO BID furosemide 20 mg tablet 20 mg PO DAILY Humulin 70/30 U-100 Insulin 100 unit/mL (70-30) suspension 19 unit subcut DAILY@1800 hydralazine 50 mg tablet 50 mg PO BID Discharge Orders: Discharge Order (Routine); Ordered 06/20/24 Ordered By: Adi Perez Diet: Diabetic diet Activity on Discharge: As tolerated Stand Alone Forms: Patient Portal Discharge page Print Language: Ghanaian Activity Restrictions/Additional Instructions: Topical Wound Care recommendations: Maintain blood glucose levels per Providers order. Right Plantar Heel wound - Off Load Pressure - Limit walking and standing on left foot. Cleanse and irrigate with NS, pat dry. Apply Durafiber AG to wound bed cover with ABD pad and gauze wrap, Change every other day - every 3 days if wound bed remains dry. Right Plantar Blister / Bulla - Off Load Pressure - Limit walking and standing on left foot. Cleanse and paint with betadine cover with dry gauze dressing change daily. Recommend follow up out patient Wound Clinic at [address] [place] [id number] and to call for an appointment at time of discharge. [phone].? Care Plan Goals: recovery Health Concerns: cellulitis, wound, constipation Plan of Treatment: 5 days doxy, wound care Assessment: see above
--- NOTE | 2024-06-20 10:57 | W.MHC.F2F ---
Service Date Service Date: 06/20/24 Encounter Date of encounter: 06/20/24 Reasons for Services Signs and symptoms assessed: difficulty ambulating Reason for detention: wound care (see dc instructions) Homebound: Leaving the home is medically contraindicated at this time without the asist of a device and/or another person due th the listed conditions above and below. Reason homebound: unsteady gait / fall risk Certification: Based on the above findings, I certify that this patient is confined to the home and needs intermittent detention care, physical therapy and/or speech therapy, or continues to need occupational therapy. The patient is under my care, and I have initiated the establishment of the plan of care. The patient will be followed by a physician who will periodically review the plan of care. Time Spent With Patient Time: Total time managing care of this patient today ____ minutes.
[2024-06-20 11:43] LABS: Glucose, Whole Blood 131 mg/dL (60-115)
--- NOTE | 2024-06-20 13:13 | MHC.CM.PN ---
PT TO DC HOME TODAY [facility]
== END 2024-06-20 13:23 | disposition home health service (06) | DRG 603 ==
LOC: HO.ED 06-17 15:15 → HO.EDOVER 06-17 19:53 → HO.S3 06-17 20:06
PROVIDERS: Emergency Medicine; Admitting Provider Student in an Organized Health Care Education/Training Program; Emergency Provider Emergency Medicine Emergency Medical Services; PCP Internal Medicine; Visit Provider Internal Medicine
DX: L03.115 Cellulitis of right lower limb (principal); E87.21 Acute metabolic acidosis; L97.419 Non-pressure chronic ulcer of right heel and midfoot with unspecified severity; E11.621 Type 2 diabetes mellitus with foot ulcer; E86.0 Dehydration; K59.00 Constipation, unspecified; E78.5 Hyperlipidemia, unspecified; E03.9 Hypothyroidism, unspecified; I10 Essential (primary) hypertension; Z79.4 Long term (current) use of insulin; Z79.890 Hormone replacement therapy; Z79.899 Other long term (current) drug therapy
CPT/HCPCS: 36415; 73630; 73701; 74018; 80048; 80076; 80202; 82565; 82803; 82947; 83036; 83605; 83735; 85025; 85027; 85652; 86140; 87040; 93971; 97162; 99285; J0360; J0692; J1650; J1920; J2405; J2543; J3370; J7120; Q9967

== ENCOUNTER → 2024-06-16 11:06 | Outpatient (BNV) | payer MEDICARE, SELFPAY | PROVIDERS: Emergency Provider Emergency Medicine Emergency Medical Services; PCP Internal Medicine; Visit Provider Student in an Organized Health Care Education/Training Program | DX: L03.115 Cellulitis of right lower limb (principal); E11.621 Type 2 diabetes mellitus with foot ulcer; E87.20 Acidosis, unspecified; L97.509 Non-pressure chronic ulcer of other part of unspecified foot with unspecified severity; K59.00 Constipation, unspecified | CPT/HCPCS: 99223; 99233; 99239; G0180 ==

== ENCOUNTER 2024-06-27 09:17 | Outpatient (RCR) | payer MEDICARE, SELFPAY | END 2024-09-13 15:00 | disposition home or self-care (01) | LOC: HO.WCC 09:17 | PROVIDERS: PCP Internal Medicine; Visit Provider Surgery | DX: T25.291A Burn of second degree of multiple sites of right ankle and foot, initial encounter (principal); T31.0 Burns involving less than 10% of body surface; Z79.4 Long term (current) use of insulin; Z79.899 Other long term (current) drug therapy | CPT/HCPCS: 11042; 16020; 16025; 99212 ==

== ENCOUNTER 2024-07-09 14:49 | Outpatient (REF) | payer MEDICARE, SELFPAY ==
[2024-07-09 17:27] LABS: Ferritin 111 ng/mL (10-250)
[2024-07-09 17:40] LABS: Folate 15.6 ng/mL (> or = 4.0); Vitamin B12 827 pg/mL (200-900)
== END 2024-07-09 14:50 | disposition home or self-care (01) ==
LOC: HO.LAB 14:49
PROVIDERS: PCP Internal Medicine; Visit Provider Internal Medicine
DX: D64.89 Other specified anemias (principal); E03.9 Hypothyroidism, unspecified; E11.65 Type 2 diabetes mellitus with hyperglycemia; I12.9 Hypertensive chronic kidney disease with stage 1 through stage 4 chronic kidney disease, or unspecified chronic kidney disease; N18.9 Chronic kidney disease, unspecified
CPT/HCPCS: 36415; 82607; 82728; 82746

== ENCOUNTER 2024-10-31 11:52 | Outpatient (REF) | payer MEDICARE, SELFPAY ==
--- OUTSIDE RECORDS SUMMARY | 2024-10-31 11:56 | XMS_ITS | Clinical Summary ---
Author Organization Unknown Care Team Providers Care Glazing Department Supervisor Name Role Phone DUC KAUR, ADAMS Unavailable Unavailable Payers Payer Name Policy Type Policy Number Effective Date Expira tion Date [facility] [employer] DENSITY PROGRAM [id number] Problems Condition Name Condition Details Condition Category Status Onset Date Resolution Date Last Treatment Date Treating Clinician Comments AGE-RELATED OSTEOPOROSIS W/O CURRENT PATHOLOGICAL FRACTURE Active 04-01 00:00: 00 Allergies, Adverse Reactions, Alerts This patient has no known allergies or adverse reactions. Vital Signs Vital Name Observation Time Observation Value Commen ts Systolic Blood Pressure 2022-08-27 11:43:00.000 128 mm [Hg] Diastolic Blood Pressure 2022-08-27 11:43:00.000 82 mm [Hg] Reason for Visit INDEPENDENT IN THE HOME Encounters Start Date/Time End Date/Time Encounter Type Admission Type Attending [facility] Care Department Encounter ID Discharge Date Discharge Status Discharge Condition Discharge Reason Percent Goals Met 2022-08-27 00:00:00 2022-08-27 00:00:00 Outpatient NEW ADMISSION [facility] [id number] 00:00:00 DISCHARGE TO HOME OR SELF CARE INDEPENDEN T IN THE HOME CLIENT NO LONGER REQUIRES SKILLED CARE
[2024-10-31 14:15] LABS: Estimated Average Glucose 223 mg/dL; Hemoglobin A1c % 9.4 % (<6.0); Total Hemoglobin (HGBA1C) 2924.5792 umol/L
[2024-10-31 14:26] LABS: Alanine Aminotransferase 14 U/L (0-31); Albumin Level 3.9 g/dL (3.5-5.0); Alkaline Phosphatase 69 U/L (39-117); Anion Gap 12 (12-20); Aspartate Amino Transferase 40 U/L (5-31); Bilirubin Total 0.5 mg/dL (0.0-1.0); Blood Urea Nitrogen 30 mg/dL (9-16); Calcium 9.2 mg/dL (8.4-10.2); Carbon Dioxide 29 mmol/L (22-29); Chloride 99 mmol/L (96-108); Estimated Glomerular Filt Rate 43; Glucose Random 305 mg/dL (60-115); Potassium 4.8 mmol/L (3.3-5.1); Sodium 135 mmol/L (135-145); Total Protein 7.5 g/dL (6.5-8.0)
[2024-10-31 15:21] LABS: Thyroid Stimulating Hormone 1.95 uIU/mL (0.32-4.0)
== END 2024-10-31 11:53 | disposition home or self-care (01) ==
LOC: HO.10HDL 11:52
PROVIDERS: Visit Provider Internal Medicine
DX: E11.65 Type 2 diabetes mellitus with hyperglycemia (principal); E03.9 Hypothyroidism, unspecified; F32.89 Other specified depressive episodes; M48.062 Spinal stenosis, lumbar region with neurogenic claudication
CPT/HCPCS: 36415; 80053; 83036; 84443

== ENCOUNTER 2025-02-06 15:02 | Outpatient (REF) | payer MEDICARE, SELFPAY ==
[2025-02-06 15:59] LABS: Estimated Average Glucose 223 mg/dL; Hemoglobin A1c % 9.4 % (<6.0)
[2025-02-06 16:24] LABS: Alanine Aminotransferase 19 U/L (0-31); Albumin Level 3.8 g/dL (3.5-5.0); Alkaline Phosphatase 80 U/L (39-117); Anion Gap 12 (12-20); Aspartate Amino Transferase 43 U/L (5-31); Bilirubin Total 0.2 mg/dL (0.0-1.0); Blood Urea Nitrogen 50 mg/dL (9-16); Calcium 9.8 mg/dL (8.4-10.2); Carbon Dioxide 30 mmol/L (22-29); Chloride 99 mmol/L (96-108); Cholesterol 114 mg/dL (<200); Estimated Glomerular Filt Rate 37; HDL Cholesterol 37 mg/dL (>40); LDL Cholesterol Calculated 67 mg/dL (<100); Sodium 135 mmol/L (135-145); Total Protein 7.4 g/dL (6.5-8.0); Triglycerides 53 mg/dL (<150)
--- OUTSIDE RECORDS SUMMARY | 2025-02-06 16:35 | XMS_ITS | Clinical Summary ---
Author Organization [facility] Address [address] [place] [phone] Phone Care Team Providers Care Floor Inspector Name Role Phone Adelaida Broussard MD Primary Care Provider [phone] Allergies Active Allergy Reactions Criticality Noted Date Comments Simvastatin 11/02/2021 Medications ACETAMINOPHEN ORAL Take by mouth as needed. Active alendronate (FOSAMAX) 35 mg tablet Take 1 tablet (35 mg total) by mouth every 7 (seven) days. Active aspirin 81 mg chewable tablet Take 81 mg by mouth daily. Active atorvastatin (LIPITOR) 80 mg tablet Take 1 tablet (80 mg total) by mouth 1 (one) time each day. 4 Active calcium carbonate (CALCIUM 600 ORAL) Take by mouth daily. Active ezetimibe (ZETIA) 10 mg tablet Take 1 tablet (10 mg total) by mouth 1 (one) time each day. 3 Active furosemide (LASIX) 20 mg tablet Take 20 mg by mouth daily. Active gabapentin (NEURONTIN) 600 mg tablet Take 600 mg by mouth 2 times daily. Active hydrALAZINE (APRESOLINE) 50 mg tablet Take 50 mg by mouth 2 times daily. Active INSULIN REGULAR HUMAN INJ Inject as directed. Active levothyroxine (SYNTHROID, LEVOTHROID) 75 mcg tablet Take 1 tablet (75 mcg total) by mouth 1 (one) time each day. Active miSOPROStoL (CYTOTEC) 200 mcg tablet Please take 2 tablets (total 400 mcg) three hours before endometrial biopsy appointment to help with opening the uterus Active Active Problems Problem Noted Date Diagnosed Date Lumbar compression fracture, closed, initial enc ounter 04/01/2022 Overview (08/06/2024): Last Assessment & Plan: I described the T12 compression fracture to the patient and her . This likely occurred when she fell during a hypoglycemic episode. She seems to be asymptomatic from this as I did not elicit pain from palpation or percussion. This will likely heal on its own and no further treatment was recommended. Lumbar stenosis with neurogenic claudication Overview (08/06/2024): Last Assessment & Plan: I reviewed the MRI in detail with the patient and her . She seemed to understand but he did translate into Burkinan to be sure. I believe she is symptomatic from the severe L4-5 stenosis and would be a good candidate for surgery with an anticipated improvement of 80 to 85%. She was very excited about possibility of less pain and better walking and activity tolerance. Unfortunately, once I explained to the 1 to 3% risk of surgery causing pain/paresthesias/weakness in the legs, Mr. Jeronimo said no to surgery. He states he is unwilling to take any risk of her being worse because, even if he has to help her, at least now she can walk. 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 Mrs. Jeronimo began sobbing and continue to cry as they left the appointment. Her at least agreed that they will consider this option and call my office back if they would like to proceed with surgery. Left carpal tunnel syndrome 11/03/2021 Cerebrovascular accident 11/02/2021 Overview (08/06/2024): Cerebrovascular accident NSTEMI (non-ST elevated myocardial infarction) 1 01/03/2021 Overview (08/06/2024): NSTEMI Carotid bruit 09/14/2021 Overview (08/06/2024): Last Assessment & Plan: I did review with him that she does have bilateral carotid bruits and a carotid Doppler exam fromOctober 2021 demonstrated a right carotid stenosis of 50 to 69%. The left had less than 50% stenosis. I am going to schedule for repeat carotid Doppler. Coronary artery disease 09/14/2021 Overview (08/06/2024): Last Assessment & Plan: She does have a known history of coronary artery disease. This time she is having no chest pain. I did tell them if she started having exertional symptoms, that I described to call. I did tell her if she had any discomforts in her chest that lasted over 15 to 20 minutes to call 911. Hyperlipidemia 09/14/2021 Overview (08/06/2024): Last Assessment & Plan: It has been quite sometime since she had a lipid profile done. I did give her a slip for 1. Given her history of carotid artery disease will want to keep the LDL below 70. Hypertension 09/14/2021 Overview (08/06/2024): Last Assessment & Plan: 134/60 in office today, well-controlled on current therapy. Continue current regimen as above. Surgical History Surgery Date Site/Laterality Comments CARPAL TUNNEL RELEASE 01/28/2022 Left PROCEDURE: VT NEUROPLASTY &/TRANSPOS MEDIAN NRV CARPAL TUNNE; COMMENT: Left carpal tunnel release with Dr. 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 Hypothyroidism DX:Hypothyroidis m Coronary artery disease DX:Coron heath artery disease Mixed hyperlipidemia DX:Mixed hy perlipidemia Diabetes mellitus type 2, co ntrolled, with complications (CMS/HCC) DX:Diabetes mellitus type 2, controlled, with complications ([facility]) Essential hypertension DX:Essent ial hypertension Legally blind DX:Legally blind Social History Tobacco Use Types Packs/Day Years Used Date Smoking Tobacco: Never Smokeless Tobacco: Never Alcohol Use Standard Drinks/Week Comments Not Currently 0 (1 standard drink = 0.6 oz pur e alcohol) Comments Unknown Sex and Gender Information Value Date Recorded Sex Assigned at Not on file Legal Sex Female 6:14 PM EST Gender Identity Not on file Sexual Orientation Not on file Obstetrics History Last Filed Vital Signs Vital Sign Reading Time Taken Comments Blood Pressure 132/60 09/11/2024 11:46 AM EST Pulse 89 09/11/2024 11:46 AM EST Temperature - - Respiratory Rate 12 09/11/2024 11:46 AM EST Oxygen Saturation - - Inhaled Oxygen Concentration - - Weight 46.3 kg (102 lb) 09/11/2024 11:46 AM EST Height 149.9 cm (4' 11 ) 09/11/2024 11:46 AM EST Body Mass Index 20.6 09/11/2024 11:46 AM EST Plan of Treatment Health Maintenance Due Date Last Done Comments Diabetes: Annual Foot Exam 1950 Diabetes: Annual Retina Eye Exam 1950 DTaP,Tdap,and Td Vaccines (1 - Tdap) 1959 RSV Immunization Adult Patients (1 - 1-dose 75+ series) 2015 Cholesterol Screening (Lipid Panel) 10/16/2022 Depression Screening 10/16/2022 Falls Risk Assessment 10/16/2022 Medicare Annual Wellness Visit 10/16/2022 Osteoporosis Screening (Bone Density Screening) 10/16/2022 Social Influencers of Health Screening 10/16/2022 Diabetes: Annual Urine Albumin-Creatinine Ratio (uACR) 08/24/2024 Diabetes: Blood Sugar Control Test (HGBA1C) 01/02/2025 07/02/2024, 07/02/2024 Diabetes: Annual GFR (Glomerular Filtration Rate) 07/02/2025 07/02/2024, 07/02/2024 Hypertension/CHF/CAD Annual BMP Blood Test 07/02/2025 07/02/2024, 07/02/2024 Zoster Vaccines Completed 05/10/2018, 02/07/2018 Pneumococcal Vaccine: 50+ Years Completed 08/28/2023, 12/17/2021, 02/07/2018, Additional history exists COVID-19 Vaccine Completed 08/29/2024, , 09/08/2022, Additional history exists Influenza Vaccine Completed 08/29/2024, , 07/26/2022, Additional history exists HIB Vaccines Aged Out No longer eligi ble based on patient's age to complete this topic HPV Vaccines Aged Out No longer eligi ble based on patient's age to complete this topic Hepatitis A Vaccines Aged Out No long er eligible based on patient's age to complete this topic Hepatitis B Vaccines Aged Out No long er eligible based on patient's age to complete this topic IPV Vaccines Aged Out No longer eligi ble based on patient's age to complete this topic MMR Vaccines Aged Out No longer eligi ble based on patient's age to complete this topic Meningococcal ACWY Vaccine Aged Out N o longer eligible based on patient's age to complete this topic Meningococcal B Vacine Aged Out No lo nger eligible based on patient's age to complete this topic RSV Immunization Patients Under 20 months Aged Out No longer eligible based on patient's age to complete this topic Varicella Vaccines Aged Out No longer eligible based on patient's age to complete this topic Procedures Procedure Name Priority Date/Time Associated Diagnosis Comments ANNUAL BMP BLOOD TEST Routine 07/02/2024 HEMOGLOBIN A1C Routine 07/02/2024 from Last 3 Months or Most Recently Relevant to Health Maintenance Results * Annual BMP Blood Test (07/02/2024) Pathologist [facility] Annual BMP Blood Test abstracted Historical Provider HEALTH MAINTENANCE Final Result * (ABNORMAL) Hemoglobin A1c (07/02/2024) Pathologist [facility] Hemoglobin A1C 9.4(A) <=6.5 % Blood Venous blood specimen / Unknown Historical Provider LAB BLOOD ORDERABLES Teresa l Result from Last 3 Months or Most Recently Relevant to Health Maintenance Insurance [employer] [id number] [employer] Advance Directives Documents on File Type Date Recorded Patient Client Director Expl anation Health Care Decision (hx) 04/26/2018 AD BARNES DIRECTIVE Health Care Decision (hx) 04/26/2018 AD BARNES DIRECTIVE Health Care Decision (hx) 04/26/2018 AD BARNES DIRECTIVE Health Care Decision (hx) 04/26/2018 AD BARNES DIRECTIVE Health Care Decision (hx) 04/26/2018 AD BARNES DIRECTIVE Health Care Decision (hx) 04/26/2018 AD BARNES DIRECTIVE Health Care Decision (hx) 04/26/2018 AD BARNES DIRECTIVE Health Care Decision (hx) 04/26/2018 AD BARNES DIRECTIVE Health Care Decision (hx) 04/26/2018 AD BARNES DIRECTIVE Health Care Decision (hx) 04/26/2018 AD BARNES DIRECTIVE Care Teams Floor Inspector Relationship Specialty Start Date End Date Adelaida Broussard MD [address] [place] [address] PCP - General Internal Medicine 06/11/21
--- OUTSIDE RECORDS SUMMARY | 2025-02-06 16:35 | XMS_ITS | Clinical Summary ---
Author Organization [facility] Address [address] [place] [id number] Care Team Providers Care Teasel Setter Name Role Phone Adelaida Broussard MD Primary Care Provider Unav ailable Allergies Active Allergy Reactions Criticality Noted Date Comments Penicillin V Other (see comments) 09/01/2022 Medications atorvastatin (LIPITOR) 20 MG tablet Take 20 mg by mouth 1 (one) time each day Active levothyroxine (SYNTHROID, LEVOTHROID) 100 MCG tablet Take 75 mcg by mouth 1 (one) time each day Active gabapentin (NEURONTIN) 600 MG tablet Take 600 mg by mouth 3 (three) times a day Active ascorbic acid (VITAMIN C) 500 MG CR capsule Take 500 mg by mouth 1 (one) time each day Active acetaminophen (TYLENOL) 500 MG tablet Take by mouth every 6 (six) hours if needed for mild pain Active aspirin (ST BA) 81 MG EC tablet Take 81 mg by mouth 1 (one) time each day Active insulin NPH-insulin regular (HumuLIN 70/30) (70-30) 100 UNIT/ML injection Active furosemide (LASIX) 20 MG tablet Take 20 mg by mouth 1 (one) time each day 08/12/2022 Active Calcium Carb-Cholecalci ferol (Calcium Carbonate-Vitam in D3) 600-400 MG-UNIT tablet Take 1 tablet by mouth 07/19/2022 Active alendronate (FOSAMAX) 35 MG tablet TAKE 1 TABLET BY MOUTH ONCE PER WEEK WITH 8OZ WATER DIRECTED 07/20/2022 Active Active Problems Problem Noted Date Diagnosed Date Stage 3a chronic kidney disease 09/04/2023 Type 2 diabetes mellitus wit h diabetic chronic kidney disease 09/01/2022 Proteinuria 06/14/2022 Hyposmolality and/or hyponatremia 06/14/2022 Hypertensive chronic kidney disease, unspecified, with chronic kidney disease stage I through stage IV, or unspecified 06/14/2022 Hyperkalemia 06/14/2022 Anemia of chronic disease 06/14/2022 Chronic kidney disease, stage 2 (mild) Immunizations Name Administration Dates Next Due Pneumococcal Polysaccharide 02/11/2014 Social History Tobacco Use Types Packs/Day Years Used Date Smoking Tobacco: Never Alcohol Use Standard Drinks/Week Comments No 0 (1 standard drink = 0.6 oz pur e alcohol) Comments Unknown Sex and Gender Information Value Date Recorded Sex Assigned at Not on file Legal Sex Female 4:59 PM EST Gender Identity Not on file Sexual Orientation Not on file Last Filed Vital Signs Vital Sign Reading Time Taken Comments Blood Pressure 120/80 10/10/2024 3:08 PM EST Pulse 73 10/10/2024 3:08 PM EST Temperature - - Respiratory Rate - - Oxygen Saturation 97% 10/10/2024 3:08 PM EST Inhaled Oxygen Concentration - - Weight 47.6 kg (105 lb) 10/10/2024 3:08 PM EST Height 160 cm (5' 3 ) 11/09/2020 12:00 PM EST Body Mass Index 18.6 11/09/2020 12:00 PM EST Plan of Treatment Upcoming Encounters Date Type Department Care Team (Late st Contact Info) Description 10/27/2025 1:15 PM EST Office Visit [facility] [address] [place] [phone] Jaron Bingham MD [address] [facility] [address] [place] [address] Health Maintenance Due Date Last Done Comments Pneumococcal Vaccine: 65+ Years (2 of 2 - PCV) 02/11/2015 02/11/2014 Diabetes: Ophthalmology Exam 09/01/2022 Diabetes: Pedal Pulse Checked 09/01/2022 Diabetes: Sensory Foot Exam 09/01/2022 Diabetes: Visual Foot Exam 09/01/2022 Influenza Vaccine (#1) 2024 Diabetes: Hemoglobin A1C 10/02/2024 024, 01/27/2020 Hepatitis B Vaccine Aged Out No longe r eligible based on patient's age to complete this topic Procedures Procedure Name Priority Date/Time Associated Diagnosis Comments BLOOD PANEL (HC) Routine 01/27/2020 12:0 0 AM EDT from Last 3 Months or Most Recently Relevant to Health Maintenance Results * (ABNORMAL) Blood Panel (01/27/2020 12:00 AM EDT) Sodium 136(L) 137 - 145 mmol/L [facility] eGFR Non- 48(L) >60 ml/min [facility] Hematocrit 34.4(L) 38 - 50 % [facility] Potassium 4.8 3.5 - 5.1 mmol/L [facility] Carbon Dioxide (CO2) 34(H) 22 - 30 mmol/L [facility] BUN 35(H) 9 - 20 mg/dl [facility] Creatinine 1.10 0.70 - 1.30 mg/dl [facility] Calcium 9.7 8.4 - 10.2 mg/dl [facility] Hgb 11.3(L) 13.0 - 16.5 g/dl [facility] Platelets 282 140 - 440 k/uL [facility] Hemoglobin A1C 8.6(H) <5 % [facility] 01/27/2020 us [facility] Conversion LAB [id number] LICITED RESULTS Final Result [facility] from Last 3 Months or Most Recently Relevant to Health Maintenance Insurance [employer] [facility] MEDICARE Care Teams Teasel Setter Relationship Specialty Start Date End Date Adelaida Broussard MD [address] [place] [address] [place] [phone] PCP - General Internal Medicine 10/10/24
[2025-02-06 17:19] LABS: Glucose Random 463 mg/dL (60-115); Potassium 6.2 mmol/L (3.3-5.1)
== END 2025-02-06 15:03 | disposition home or self-care (01) ==
LOC: HO.LAB 15:02
PROVIDERS: PCP Internal Medicine; Visit Provider Internal Medicine
DX: Z13.89 Encounter for screening for other disorder (principal)
CPT/HCPCS: 36415; 80053; 80061; 83036

== ENCOUNTER 2025-02-06 20:27 | Emergency (ER) | payer MEDICARE, SELFPAY ==
--- NOTE | 2025-02-06 07:04 | ECG_ITS ---
Test Reason : HIGH POTASSIUM Blood Pressure : */* mmHG Vent. Rate : 68 BPM Atrial Rate : 68 BPM P-R Int : 144 ms QRS Dur : 82 ms QT Int : 404 ms P-R-T Axes : 68 2 137 degrees QTcB Int : 429 ms Normal sinus rhythm Septal infarct (cited on or before 06-Feb-2025) ST & T wave abnormality, consider lateral ischemia Abnormal ECG When compared with ECG of 06-Feb-2025 20:42, No significant change was found Referred By: Kimberlee Fabian Electronically Signed By: TEDDY CASTILLO
[2025-02-06 20:32] VITALS: BP 168/68; PULSE 67; RESP 16; TEMP 36.6; O2SAT 97; BMI 19.8
--- NOTE | 2025-02-06 20:37 | ED.GENADULT ---
HPI - General Adult General Chief complaint: Recheck/Abnormal Lab/Rx Stated complaint: abnormal labs Time Seen by Provider: 02/06/25 21:56 Source: patient and family Mode of arrival: ambulatory Limitations: no limitations History of Present Illness ED Provider: Dr. Kimberlee Fabian HPI narrative: Patient comes to the emergency room accompanied by her . According to the patient, she had lab work done earlier today at 15:00. A few hours ago, patient received a phone call at home to let her know that her potassium and her glucose were elevated and she needed to report immediately to the emergency room. Patient states that she is asymptomatic, states that she feels at baseline, no complaints. Related Data Home Medications ?Medication ?Instructions ?Recorded ?Confirmed furosemide 20 mg tablet 20 mg PO DAILY 07/06/21 06/16/24 hydralazine 50 mg tablet 50 mg PO BID 07/06/21 06/16/24 insulin human U-100 NPH-regulr 19 unit subcut DAILY@1800 07/06/21 06/16/24 70-30 mix 100 unit/mL subcutaneous susp (Humulin 70/30 U-100 Insulin) acetaminophen 500 mg tablet 1,000 mg PO Q6H PRN Pain 06/16/24 06/16/24 atorvastatin 80 mg tablet 80 mg PO DAILY 06/16/24 06/16/24 calcium 600 mg (as 1 cap PO BID 06/16/24 06/16/24 carbonate)-vitamin D3 10 mcg (400 unit) capsule ezetimibe 10 mg tablet 10 mg PO DAILY 06/16/24 06/16/24 insulin human U-100 NPH-regulr 6 unit subcut BEDTIME 06/16/24 06/16/24 70-30 mix 100 unit/mL subcutaneous susp (Humulin 70/30 U-100 Insulin) levothyroxine 75 mcg tablet 75 mcg PO DAILY@0600 06/16/24 06/16/24 sertraline 50 mg tablet 50 mg PO DAILY 06/16/24 06/16/24 Previous Rx's ?Medication ?Instructions ?Recorded doxycycline hyclate 100 mg capsule 100 mg PO BID #10 caps 06/20/24 losartan 25 mg tablet 25 mg PO DAILY #90 tabs 06/20/24 psyllium (Hydrocil Instant oral 1 packet PO DAILY #90 ea 06/20/24 packet) Allergies Allergy/AdvReac Type Severity Reaction Status Date / Time No Known Allergies Allergy Unknown Verified 02/06/25 20:35 Review of Systems Review of Systems: Constitutional : No Weight loss, No Fever, No Chills, No Night Sweats, No Fatigue, No Malaise ENT/Mouth : No Hearing loss, No Ear Pain, No Nasal Congestion, No Sinus Pain, No Hoarseness, No sore throat, No Rhinorrhea, No Swallowing Difficulty Eyes: No Eye Pain, No Swelling, No Redness, No Foreign Body, No Discharge, No Vision Changes Cardiovascular : No Chest Pain, No SOB, No Dyspnea on Exertion, No Orthopnea, No Edema, No Palpitations Respiratory : No Cough, No Sputum, No Wheezing, No Smoke Exposure, No Dyspnea Gastrointestinal : No Nausea, No Vomiting, No Diarrhea, No Constipation, No abdominal Pain, No Hematochezia, No Melena Genitourinary : no irregular bleeding, No Dysuria, No Urinary Frequency, No Hematuria, No Urinary Incontinence, No Urgency, No Flank Pain, No Urinary Flow Changes, No Hesitancy Musculoskeletal : No joint pain, No Myalgias, No Joint Swelling Skin : No Skin Lesions, No rash Neuro : No Weakness, No Numbness, No Paresthesias, No Loss of Consciousness, No Dizziness, No Headache Psych : No Anxiety/Panic, No Depression, No SI/HI/AH/VH, No Social Issues, Heme/Lymph: No Bruising, No Bleeding,No Lymphadenopathy Endocrine : No Polyuria, No Polydipsia, No Temperature Intolerance FOR[facility]LY [facility] Past Medical History Medical History Pessary maintenance Hemorrhoids with complication Thyroid disease Heart problem Acute hemorrhoid Hypertension Diabetes 1.5, managed as type 2 Surgical History H/O heart surgery Social History Social History Household Members: Spouse Housing: House Do you presently have visiting nurse or other home services: No Alcohol intake: never Patient Tobacco Use Status: Never used Tobacco Second Hand Smoke Exposure: No Advance Directives: No Advance Directives Information Provided: No Do you have a plan to hurt others: No Plan service: No Sexual orientation: Straight/Heterosexual Gender identity: Female Physical Exam ED Vital Signs: Vital Signs - 24 hr 02/06/25 20:32 Temperature 97.9 F Pulse Rate 67 Respiratory Rate 16 Blood Pressure 168/68 H Pulse Oximetry 97 Oxygen Delivery Method Room Air BMI result Body Mass Index 19.8 Const Other: Appearance: Alert. Oriented X3. No acute distress. Eyes: Pupils equal, round and reactive to light. ENT: Pharynx normal. Neck: Normal inspection. Neck supple. No lymph nodes noted. No crepitus CVS: Normal heart rate and rhythm. Pulses normal. Normal S1 and S2 Respiratory: No respiratory distress. Breath sounds normal. No Wheezing. No rales Abdomen: Soft and nontender. No rigidity. No distention. Skin: Skin warm and dry. Normal skin color. Normal skin turgor. Extremities: No lower extremity edema. No Lacerations. No Rash Neuro: Oriented X 3. No motor deficit. No sensory deficit. Moving all extremities. No slurred speech. CN 2 through 12 grossly intact Psych: calm, cooperative, normal affect Course Course Course Narrative: This is a rapid medical exam performed by Maximus Haro NP: Additional HPI, ROS, PE not included below will be deferred to primary provider. 02/06/25 20:37 patient is an 84-year-old female with history of DM, thyroid disease presenting to the emergency department with complaint of feeling unsteady. Was instructed to present by PCP for hyperglycemia and hyperkalemia, BRITANY. Plan; EKG, labs Medical Decision Making Medical Decision Making MDM Narrative: my interpretation of EKG: Normal sinus rhythm, heart rate 68, no ST segment depression or elevation, no T-wave inversion, no peaked T-waves, QRS 429 my interpretation of labs: Patient is chronically anemic, no acute abnormality. Patient's potassium is 5.1, on previous labs a few hours ago it was 6.2. Patient's glucose was 288, previously 463. I discussed with the patient that sometimes when the tourniquet gets too tight and they draw blood, the potassium is falsely elevated, that is why we asked her to return to make sure that her potassium was stable since it can cause life-threatening arrhythmias. However, at this time, her potassium is normal and her glucose is quite acceptable at this time, no further Treatment needed. Patient is asymptomatic. patient's renal function is at baseline it was noted that patient's blood pressure was in the 190s. Patient has not taken her nighttime dose of medication, takes hydralazine 50 mg b.i.d.. Patient provided with her home dose medication prior to discharge. Differential Diagnosis Differential Diagnoses: The differential diagnosis associated with the presentation includes ( Hyperkalemia, hyperglycemia, DKA, renal failure) Lab Data MDM Lab Attestation statement: I reviewed the patient's lab results. 02/06/25 20:51 02/06/25 20:51 Labs: Lab Results 02/06/25 02/06/25 02/06/25 Range/Units 20:51 20:54 21:03 WBC 7.7 (4.8-10.8) X10*3/uL RBC 3.16 L (4.20-5.50) X10*6/uL Hgb 10.4 L (12.0-16.0) g/dl Hct 30.6 L (37.0-47.0) % MCV 96.8 (80.0-98.0) fL MCH 32.9 (27.0-33.0) pg MCHC 34.0 (31.0-35.0) g/dl RDW 11.7 (11.0-16.0) % Plt Count 264 (160-400) X10*3/uL MPV 12.0 (9.4-12.3) fL Immature Gran % (Auto) 0.3 (0.0-0.4) % Neut % (Auto) 66.3 (45-73) % Lymph % (Auto) 25.1 (20-40) % Johnson % (Auto) 7.0 (2-11) % Eos % (Auto) 0.8 (0-4) % Baso % (Auto) 0.5 (0-2) % Lymph # (Auto) 1.9 (1.2-4.9) X10*3/uL Johnson # (Auto) 0.5 (0.1-1.2) X10*3/uL Eos # (Auto) 0.1 (0.0-0.4) X10*3/uL Baso # (Auto) 0.0 (0.0-0.2) X10*3/uL Abs Immat Gran (auto) 0.02 (0.00-0.03) X10*3/uL Absolute Neuts (auto) 5.1 (2.0-8.3) x10*3/uL Absolute Nucleated RBC 0.000 (0.0-0.012) X10*3/uL Nucleated RBC % (auto) 0.0 (0.0-0.2) /100WBC VBG pH 7.39 (7.32-7.43) VBG pCO2 59 mmHg VBG pO2 40 mmHg VBG HCO3 36 H (22-26) mmol/L VBG O2 Saturation 60.0 % VBG Base Excess 9.7 mmol/L Sodium 137 (135-145) mmol/L Potassium 5.1 (3.3-5.1) mmol/L Chloride 99 (96-108) mmol/L Carbon Dioxide 31 H (22-29) mmol/L Anion Gap 12 (12-20) BUN 54 H (9-16) mg/dL Creatinine 1.33 (0.5-1.4) mg/dL Estim Creat Clear Calc 24.3 Estimated GFR 38 POC Glucose 259 H (60-115) mg/dL Random Glucose 288 H (60-115) mg/dL Calcium 9.7 (8.4-10.2) mg/dL Magnesium 2.2 (1.6-2.6) mg/dL Total Bilirubin 0.3 (0.0-1.0) mg/dL AST 42 H (5-31) U/L ALT 18 (0-31) U/L Alkaline Phosphatase 75 (39-117) U/L Total Protein 7.1 (6.5-8.0) g/dL Albumin 3.7 (3.5-5.0) g/dL Beta-Hydroxybutyrate 0.07 (0.02-0.27) mmol/L Independent Interpretation I performed an independent interpretation of an: EKG Discharge Plan Discharge Clinical Impression: Abnormal laboratory test result, Hypertension Patient Disposition: Home, Self-Care Instructions: Diabetic Hyperglycemia (ED) Additional Instructions: Please follow-up with your primary care physician tomorrow. If you have any worsening or new symptoms, please return to the emergency room or call 911 Prescriptions: No Action atorvastatin 80 mg tablet 80 mg PO DAILY levothyroxine 75 mcg tablet 75 mcg PO DAILY@0600 sertraline 50 mg tablet 50 mg PO DAILY ezetimibe 10 mg tablet 10 mg PO DAILY Humulin 70/30 U-100 Insulin 100 unit/mL (70-30) suspension 6 unit subcut BEDTIME acetaminophen 500 mg Tablet 1,000 mg PO Q6H PRN (Reason: Pain) calcium carbonate-vitamin D3 600 mg-10 mcg (400 unit) Capsule 1 cap PO BID Hydrocil Instant Packet 1 packet PO DAILY Qty: 90 0RF losartan 25 mg Tablet 25 mg PO DAILY Qty: 90 0RF Protocol: Hold for SBP< HOLD for SBP < : 90 doxycycline hyclate 100 mg capsule 100 mg PO BID Qty: 10 0RF furosemide 20 mg tablet 20 mg PO DAILY Humulin 70/30 U-100 Insulin 100 unit/mL (70-30) suspension 19 unit subcut DAILY@1800 hydralazine 50 mg tablet 50 mg PO BID Print Language: Burkinan
--- NOTE | 2025-02-06 20:38 | ECG_ITS ---
Test Reason : HIGH POTASSIUM Blood Pressure : */* mmHG Vent. Rate : 68 BPM Atrial Rate : 68 BPM P-R Int : 144 ms QRS Dur : 82 ms QT Int : 404 ms P-R-T Axes : 68 2 137 degrees QTcB Int : 429 ms Normal sinus rhythm Septal infarct , age undetermined ST & T wave abnormality, consider lateral ischemia Abnormal ECG When compared with ECG of 16-Jul-2011 11:10, changes of septal infarct noted Referred By: Denae Haro Electronically Signed By: TEDDY CASTILLO
[2025-02-06 20:55] LABS: MANUAL DIFF FLAG NO
[2025-02-06 20:56] LABS: Basophils Percent Auto 0.5 % (0-2); Eosinophils Absolute Auto 0.1 X10*3/uL (0.0-0.4); Eosinophils Percent Auto 0.8 % (0-4); Hematocrit 30.6 % (37.0-47.0); Hemoglobin 10.4 g/dl (12.0-16.0); Imm Gran Abs Auto 0.02 X10*3/uL (0.00-0.03); Imm Gran Pct Auto 0.3 % (0.0-0.4); Lymphocytes Absolute Auto 1.9 X10*3/uL (1.2-4.9); Lymphocytes Percent Auto 25.1 % (20-40); Mean Corpuscular Hemoglobin 32.9 pg (27.0-33.0); Mean Corpuscular Volume 96.8 fL (80.0-98.0); Monocytes Absolute Auto 0.5 X10*3/uL (0.1-1.2); Neutrophils Absolute Auto 5.1 x10*3/uL (2.0-8.3); Neutrophils Percent Auto 66.3 % (45-73); Platelet Count 264 X10*3/uL (160-400); Red Blood Count 3.16 X10*6/uL (4.20-5.50); Red Cell Distribution Width 11.7 % (11.0-16.0); White Blood Count 7.7 X10*3/uL (4.8-10.8)
[2025-02-06 20:58] LABS: Venous Blood Gas Refer to POC result
[2025-02-06 20:58] LABS: VBG Base Excess 9.7 mmol/L; VBG HCO3 36 mmol/L (22-26); VBG pCO2 59 mmHg; VBG pH 7.39 (7.32-7.43); VBG pO2 40 mmHg
[2025-02-06 21:09] LABS: Glucose, Whole Blood 259 mg/dL (60-115)
[2025-02-06 21:09] LABS: Alanine Aminotransferase 18 U/L (0-31); Albumin Level 3.7 g/dL (3.5-5.0); Alkaline Phosphatase 75 U/L (39-117); Anion Gap 12 (12-20); Aspartate Amino Transferase 42 U/L (5-31); Beta-Hydroxybutyrate 0.07 mmol/L (0.02-0.27); Bilirubin Total 0.3 mg/dL (0.0-1.0); Blood Urea Nitrogen 54 mg/dL (9-16); Calcium 9.7 mg/dL (8.4-10.2); Carbon Dioxide 31 mmol/L (22-29); Chloride 99 mmol/L (96-108); Creatinine Clr Calc Pharmacy 24.3; Estimated Glomerular Filt Rate 38; Glucose Random 288 mg/dL (60-115); Magnesium 2.2 mg/dL (1.6-2.6); Potassium 5.1 mmol/L (3.3-5.1); Sodium 137 mmol/L (135-145); Total Protein 7.1 g/dL (6.5-8.0)
[2025-02-06 22:00] VITALS: BP 205/80; PULSE 68
[2025-02-06 22:36] VITALS: BP 191/70; PULSE 68; RESP 11; TEMP 36.6; O2SAT 97
[2025-02-06] MEDS: hydrALAZINE HCl 50 MG TABLET PO (22:38)
[2025-02-06 22:44] VITALS: BP 177/81; PULSE 81; RESP 18; TEMP 36.6; O2SAT 97
== END 2025-02-06 22:49 | disposition home or self-care (01) ==
LOC: HO.ED 22:17
PROVIDERS: Registered Nurse Emergency; Emergency Provider Emergency Medicine; PCP Internal Medicine
DX: R79.9 Abnormal finding of blood chemistry, unspecified (principal); I10 Essential (primary) hypertension; E11.9 Type 2 diabetes mellitus without complications; Z79.4 Long term (current) use of insulin; Z79.899 Other long term (current) drug therapy
CPT/HCPCS: 36415; 80053; 80061; 82010; 82803; 82947; 83036; 83735; 85025; 93005; 99283

== ENCOUNTER → 2025-02-06 20:38 | Outpatient (BNV) | payer MEDICARE, SELFPAY | PROVIDERS: Emergency Provider Emergency Medicine; PCP Internal Medicine; Visit Provider Internal Medicine | DX: I25.2 Old myocardial infarction (principal); R94.31 Abnormal electrocardiogram [ECG] [EKG]; E87.5 Hyperkalemia | CPT/HCPCS: 93010 ==

== ENCOUNTER 2025-07-20 09:01 | Emergency (ER) | payer MEDICARE, SELFPAY ==
--- NOTE | ~2025-07-20 | CT_ITS ---
CLINICAL HISTORY: pain at right side of tongue, report of diff swall CT soft tissue neck with contrast Comparison: None provided Findings: The visualized intracranial contents are unremarkable. Pharyngeal mucosal space, parapharyngeal fat, prevertebral tissues, and epiglottis are within normal limits. Salivary glands are unremarkable. No sialoliths. No suspicious thyroid nodules. No consolidation at the lung apices. No acute fracture or dislocation. IMPRESSION: No acute findings. This document has been electronically signed by: Roberto Eden MD on 07/20/2025 12:07:33
[2025-07-20 09:07] VITALS: BP 186/76; PULSE 86; RESP 16; TEMP 36.8; O2SAT 98; BMI 24.6
[2025-07-20 09:27] VITALS: BP 197/71; PULSE 83; RESP 16; TEMP 36.7; O2SAT 97
--- NOTE | 2025-07-20 09:31 | PC.NURSE ---
Pt to ED 19 from [facility], reports lump to right side of tongue. States pain 10/10 and pt is needing to eat soft food as a result. Pt with respirations even/unlabored and is able to speak clear and complete sentences.
--- NOTE | 2025-07-20 09:35 | ED.GENADULT ---
HPI - General Adult General Chief complaint: General Medical Stated complaint: tongue pain Time Seen by Provider: 07/20/25 09:34 History of Present Illness ED Provider: Vicenta BHARDWAJ narrative: The patient is an 85-year-old female who lives at home with her . Apparently she had some kind of tongue surgery tender 20 years ago. Unfortunately they can not tell me what the indication for the surgery was. The patient is here today because over the last 3 or 4 days she has developed a complaint of pain and a lump on the right side of her tongue. The says that she is eating less because of this and he is worried about how she is doing. No fever, sweats, chills. Related Data Home Medications ?Medication ?Instructions ?Recorded ?Confirmed furosemide 20 mg tablet 20 mg PO DAILY 07/06/21 06/16/24 hydralazine 50 mg tablet 50 mg PO BID 07/06/21 06/16/24 insulin human U-100 NPH-regulr 19 unit subcut DAILY@1800 07/06/21 06/16/24 70-30 mix 100 unit/mL subcutaneous susp (Humulin 70/30 U-100 Insulin) acetaminophen 500 mg tablet 1,000 mg PO Q6H PRN Pain 06/16/24 06/16/24 atorvastatin 80 mg tablet 80 mg PO DAILY 06/16/24 06/16/24 calcium 600 mg (as 1 cap PO BID 06/16/24 06/16/24 carbonate)-vitamin D3 10 mcg (400 unit) capsule ezetimibe 10 mg tablet 10 mg PO DAILY 06/16/24 06/16/24 insulin human U-100 NPH-regulr 6 unit subcut BEDTIME 06/16/24 06/16/24 70-30 mix 100 unit/mL subcutaneous susp (Humulin 70/30 U-100 Insulin) levothyroxine 75 mcg tablet 75 mcg PO DAILY@0600 06/16/24 06/16/24 sertraline 50 mg tablet 50 mg PO DAILY 06/16/24 06/16/24 Previous Rx's ?Medication ?Instructions ?Recorded doxycycline hyclate 100 mg capsule 100 mg PO BID #10 caps 06/20/24 losartan 25 mg tablet 25 mg PO DAILY #90 tabs 06/20/24 psyllium (Hydrocil Instant oral 1 packet PO DAILY #90 ea 06/20/24 packet) triamcinolone acetonide 0.1 % 1 appl dental TID #5 grams 07/20/25 dental paste Allergies Allergy/AdvReac Type Severity Reaction Status Date / Time No Known Allergies Allergy Unknown Verified 07/20/25 09:08 Review of Systems Review of Systems: Yes all other systems are reviewed and are negative FOR[facility]LY [facility] Past Medical History Medical History Pessary maintenance Hemorrhoids with complication Thyroid disease Heart problem Acute hemorrhoid Hypertension Diabetes 1.5, managed as type 2 Surgical History H/O heart surgery Social History Social History Household Members: Spouse Housing: House Do you presently have visiting nurse or other home services: No Alcohol intake: never Patient Tobacco Use Status: Never used Tobacco Second Hand Smoke Exposure: No service: No Sexual orientation: Straight/Heterosexual Gender identity: Female Physical Exam ED Vital Signs: Vital Signs - 24 hr 07/20/25 09:07 07/20/25 09:27 07/20/25 10:08 Temperature 98.2 F 98.1 F Pulse Rate 86 83 79 Respiratory Rate 16 16 Blood Pressure 186/76 H 197/71 H 165/70 H Pulse Oximetry 98 97 Oxygen Delivery Method Room Air Room Air 07/20/25 12:07 07/20/25 12:45 Temperature 98.2 F 98.0 F Pulse Rate 70 69 Respiratory Rate 14 17 Blood Pressure 194/73 H 199/73 H Pulse Oximetry 99 97 Oxygen Delivery Method Room Air Room Air BMI result Body Mass Index 24.6 Const Other: The patient is an 85-year-old woman. She looks frail. She did not appear obviously acutely ill. HENMT Other: Face is symmetrical. There is no soft tissue swelling. There was no trismus. Mucous membranes were moist. She indicated that her symptoms were on the right side of her tongue. On my initial examination of her tongue I thought that there might be some slight asymmetry to her tongue with the right-sided tongue being slightly more prominent than the left side of the tongue but I was unable to identify any definite discrete pathology. The floor of the mouth was not elevated. She had a lot of dental decay the looks very chronic. There did not seem to be signs of ongoing poor dental hygiene. I saw no soft tissue swelling or other problems associated with her dental hygiene. I re-examined her after she had had a CT scan of the neck. On my re-examination identified a small area of mucosal abnormality on the right underside of the tongue that is probably consistent with a flat aphthous ulcer. Eyes General: appearance normal, both eyes and all related structures Neck Neck: Yes normal visual inspection, Yes full ROM and Yes no lymphadenopathy Resp Effort & Inspection: normal respiratory effort Auscultation: clear to auscultation bilaterally Cardio Rate: regular rate Rhythm: regular rhythm Heart sounds: S1 normal heart sound present and S2 normal heart sound present GI Other: The abdomen was soft and nontender Skin Other: skin is dry and unremarkable Neuro Other: the patient was awake and alert. She has very poor vision which is chronic. Otherwise her cranial nerves were intact. She moves her extremities symmetrically in seems grossly neurologically intact otherwise. Extrem Other: Extremities are unremarkable Medications Administered Discontinued Medications Generic Name Dose Route Start Last Admin Trade Name Freq PRN Reason Stop Dose Admin Sodium Chloride 1,000 mls @ 999 mls/hr 07/20/25 10:45 07/20/25 12:46 Ns IV 07/20/25 11:45 Infused .Q1H1M SARA Infusion Iohexol 100 ml 07/20/25 11:24 07/20/25 11:24 Iohexol 350 Mg/Ml 100 Ml Infus..Btl IV 07/20/25 11:25 85 ml ONCE ONE Administration Medical Decision Making Medical Decision Making [facility] Narrative: the patient is an 85-year-old woman who presented with complaints of pain on the right side of her total. Her told me that she had a history of surgery on the left side of her tongue several years ago but neither the patient nor the could explain the reason for the surgery. The patient and the state that her symptoms were such that she was unable to eat because of the discomfort. She was not showing any signs of shortness of breath or any difficulty handling her secretions however. Overall she did not appear significantly ill and on my initial examination of her oral cavity and her tongue I could not discern any definite pathology. Because the patient and the both maintained that she was having severe discomfort interfering with eating I obtained a CT scan of the neck with IV contrast. This was negative. After the study I spoke to the patient and the again. I explained the CT scan did not reveal any concerning findings. The patient became quite upset at that point consisting that she was having severe pain on the right side of her tongue. I re-examined her oral cavity. On my re-examination I felt there was a small area on the underside of the right side of the tongue approximately 4 mm x 2 mm that resembles a shallow aphthous ulcer. I suspect that this is the source of her symptoms. The at that point produced a small tube of dental triamcinolone that he says has been helpful and he requested more of this medication. At that point I felt the patient could be discharged with prescription for dental triamcinolone and advised them to follow-up with her dentist. Lab Data 07/20/25 10:08 07/20/25 10:08 Labs: Lab Results 07/20/25 07/20/25 07/20/25 Range/Units 10:08 11:59 12:05 WBC 9.5 (4.8-10.8) X10*3/uL RBC 3.09 L (4.20-5.50) X10*6/uL Hgb 10.3 L (12.0-16.0) g/dl Hct 31.1 L (37.0-47.0) % MCV 100.6 H (80.0-98.0) fL MCH 33.3 H (27.0-33.0) pg MCHC 33.1 (31.0-35.0) g/dl RDW 11.9 (11.0-16.0) % Plt Count 305 (160-400) X10*3/uL MPV 11.8 (9.4-12.3) fL Immature Gran % (Auto) 0.5 H (0.0-0.4) % Neut % (Auto) 77.5 H (45-73) % Lymph % (Auto) 14.3 L (20-40) % Lyman % (Auto) 6.6 (2-11) % Eos % (Auto) 0.7 (0-4) % Baso % (Auto) 0.4 (0-2) % Lymph # (Auto) 1.4 (1.2-4.9) X10*3/uL Lyman # (Auto) 0.6 (0.1-1.2) X10*3/uL Eos # (Auto) 0.1 (0.0-0.4) X10*3/uL Baso # (Auto) 0.0 (0.0-0.2) X10*3/uL Abs Immat Gran (auto) 0.05 H (0.00-0.03) X10*3/uL Absolute Neuts (auto) 7.3 (2.0-8.3) x10*3/uL Absolute Nucleated RBC 0.000 (0.0-0.012) X10*3/uL Nucleated RBC % (auto) 0.0 (0.0-0.2) /100WBC Sodium 141 (135-145) mmol/L Potassium 4.9 (3.3-5.1) mmol/L Chloride 104 (96-108) mmol/L Carbon Dioxide 29 (22-29) mmol/L Anion Gap 13 (12-20) BUN 27 H (9-16) mg/dL Creatinine 1.07 (0.5-1.4) mg/dL Estim Creat Clear Calc 31.7 Estimated GFR 49 POC Glucose 199 H (60-115) mg/dL Random Glucose 330 H (60-115) mg/dL Calcium 9.3 (8.4-10.2) mg/dL C-Reactive Protein 2.32 H (< or = 0.50) mg/dL Urine Color Yellow Urine Appearance Clear Urine pH 7.0 (5.0-9.0) Ur Specific [place] 1.015 (1.005-1.025) Urine Protein Negative (Neg-Trace) mg/dL Urine Glucose (UA) 250 H (Negative) mg/dL Urine Ketones Negative (Negative) mg/dL Urine Blood Negative (Negative) Urine Nitrite Negative (Negative) Ur Leukocyte Esterase Trace H (Negative) Urine RBC 0-2 (0-2) /HPF Urine WBC 0-5 (0-5) /HPF Ur Squamous Epith Cells 0-2 (0-2) /HPF Urine Bacteria 2+ (None Seen) Hyaline Casts 0-2 (0-2) /LPF Discharge Plan Discharge Clinical Impression: Aphthous ulcer of tongue Patient Disposition: Home, Self-Care Additional Instructions: I think this might be a very uncomfortable canker sore (also known as an aphthous ulcer). Please use the cream prescribed up to 3 times a day. You may also use acetaminophen (Tylenol). Please follow up with your regular doctor. It might also be good to see your dentist. Return to the emergency room if significantly worse. Prescriptions: New triamcinolone acetonide 0.1 % paste 1 appl dental TID Qty: 5 4RF Rx Instructions: use after food and/or drink and/or oral hygiene No Action atorvastatin 80 mg tablet 80 mg PO DAILY levothyroxine 75 mcg tablet 75 mcg PO DAILY@0600 sertraline 50 mg tablet 50 mg PO DAILY ezetimibe 10 mg tablet 10 mg PO DAILY Humulin 70/30 U-100 Insulin 100 unit/mL (70-30) suspension 6 unit subcut BEDTIME acetaminophen 500 mg Tablet 1,000 mg PO Q6H PRN (Reason: Pain) calcium carbonate-vitamin D3 600 mg-10 mcg (400 unit) Capsule 1 cap PO BID Hydrocil Instant Packet 1 packet PO DAILY Qty: 90 0RF losartan 25 mg Tablet 25 mg PO DAILY Qty: 90 0RF Protocol: Hold for SBP< HOLD for SBP < : 90 doxycycline hyclate 100 mg capsule 100 mg PO BID Qty: 10 0RF furosemide 20 mg tablet 20 mg PO DAILY Humulin 70/30 U-100 Insulin 100 unit/mL (70-30) suspension 19 unit subcut DAILY@1800 hydralazine 50 mg tablet 50 mg PO BID Referrals: Adelaida Broussard MD [Primary Care Provider, Internal Medicine] Interventions: ED Discharge Assessment Last Done: 07/20/25 12:45 Discharge Date/Time: 07/20/25 12:59 Print Language: Puerto Rican
--- OUTSIDE RECORDS SUMMARY | 2025-07-20 09:42 | XMS_ITS | Clinical Summary ---
Author Organization [facility] Facility Address [address] [place] [id number] Care Team Providers Care Car Body Inspector Name Role Phone Adelaida Broussard MD Primary Care Provider [phone] Allergies Active Allergy Reactions Criticality Noted Date [...] Chronic kidney disease, stage 2 (mild) Immunizations Immunization Administration Dates Next Due Pneumococcal Polysaccharide 02/11/2014 [...] Visit [facility] [address] [place] [address] Jaron Bingham MD [address] [facility] [address] [place] [address] Health Maintenance Due Date Last Done Comments Pneumococcal Vaccine: 50+ Years (2 of 2 - PCV) 02/11/2015 02/11/2014 Diabetes: Ophthalmology Exam 09/01/2022 Diabetes: Pedal Pulse Checked 09/01/2022 Diabetes: Sensory Foot Exam 09/01/2022 Diabetes: Visual Foot Exam 09/01/2022 Diabetes: Hemoglobin A1C 10/02/2024 024, 01/27/2020 Influenza Vaccine (#1) 2025 Pneumococcal Vaccine: Peds ( 0 to 5 Years) and At-Risk Patients (6 to 49 Years) Discontinued 02/11/2014 Hepatitis B Vaccine Aged Out No longe [...] % PVNMA 01/27/2020 us [facility] Conversion LAB [id number] LICITED RESULTS Final Result PVNMA from Last 3 Months or Most Recently Relevant to Health Maintenance Insurance [employer] Medicare [employer] Care Teams Car Body Inspector Relationship Specialty Start Date End Date Adelaida Broussard MD [address] [place] [address] [place] [id number] PCP - General Internal Medicine 10/10/24
--- OUTSIDE RECORDS SUMMARY | 2025-07-20 09:42 | XMS_ITS | Clinical Summary ---
Author Organization [facility] [address] [facility] Address [address] [place] [id number] Phone Care Team Providers Care Hospice Community Liaison Name Role Phone Adelaida Broussard MD Primary Care Provider [phone] Allergies Active Allergy Reactions Criticality Noted Date [...] Diagnosed Date Lumbar compression fracture, closed, initial encounter ([facility] V24, [facility] V28) 04/01/2022 Overview (08/06/2024): Last Assessment & Plan: [...] to understand but he did translate into [place]ar[place]uan to be sure. 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 Mrs. Jeronimo began sobbing and continue to cry as they left the appointment. Her at least agreed that they will consider this option and call my office back if they would like to proceed with surgery. Left carpal tunnel syndrome 11/03/2021 Cerebrovascular accident ([facility] V24, [facility] V 28) 11/02/2021 Overview (08/06/2024): Cerebrovascular accident NSTEMI (non-ST elevated myoc ardial infarction) ([facility] V24, [facility] V28) 11/02/2021 Overview (08/06/2024): NSTEMI Carotid bruit 09/14/2021 Overview [...] Comments CARPAL TUNNEL RELEASE 01/28/2022 Left PROCEDURE: [place] NEUROPLASTY &/TRANSPOS MEDIAN NRV CARPAL TUNNE; COMMENT: Left carpal tunnel release with Dr. Oscar OTHER SURGICAL HISTORY Bilateral PROCEDURE: [place] RMVL [facility] CORNEO-SCLL SCTJ CORONARY STENT PLACEMENT PROCEDURE: STENT, CORONARY, TAMIR Medical History Medical History Date Comments Stroke (CMS/HCC V24, 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) Essential hypertension DX:Essent ial hypertension Legally blind [...] series) 2015 Cholesterol Screening (Lipid Panel) 10/16/2022 Falls Risk Assessment 10/16/2022 Medicare Annual Wellness Visit 10/16/2022 Osteoporosis Screening (Bone Density Screening) 10/16/2022 Social Influencers of Health Screening 10/16/2022 Diabetes: Annual Urine Albumin-Creatinine Ratio (uACR) 08/24/2024 Depression Screening 11/06/2024 Diabetes: Blood Sugar Control Test (HGBA1C) 01/02/2025 07/02/2024, 07/02/2024 Diabetes: Annual GFR (Glomerular Filtration Rate) 07/02/2025 07/02/2024, 07/02/2024 Hypertension/CHF/CAD Annual BMP Blood Test 07/02/2025 07/02/2024, 07/02/2024 COVID-19 Vaccine ( season) 2025 08/29/2024, 09/05/2023, 09/08/2022, Additional history exists Influenza Vaccine (#1) 2025 , 08/28/2023, 07/26/2022, Additional history exists Zoster Vaccines Completed 05/10/2018, 02/07/2018 Pneumococcal Vaccine: 50+ Years Completed 08/28/2023, 12/17/2021, 02/07/2018, Additional history exists HIB Vaccines Aged Out [...] age to complete this topic Meningococcal B Vaccine Aged Out No l onger eligible based on patient's age to complete [...] Results * Annual BMP Blood Test (07/02/2024) Annual BMP Blood Test abstracted Historical Provider HEALTH MAINTENANCE Final Result * (ABNORMAL) Hemoglobin A1c (07/02/2024) Hemoglobin A1C 9.4(A) <=6.5 % Blood Venous blood specimen / Unknown Historical Provider LAB BLOOD ORDERABLES Teresa l Result from Last 3 Months or Most Recently Relevant to Health Maintenance Insurance [employer] Advance Directives Documents on File Type Date Recorded 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
[2025-07-20 10:08] VITALS: BP 165/70; PULSE 79
[2025-07-20 10:13] LABS: MANUAL DIFF FLAG NO
[2025-07-20 10:15] LABS: Hematocrit 31.1 % (37.0-47.0); Hemoglobin 10.3 g/dl (12.0-16.0); Imm Gran Abs Auto 0.05 X10*3/uL (0.00-0.03); Imm Gran Pct Auto 0.5 % (0.0-0.4); Lymphocytes Absolute Auto 1.4 X10*3/uL (1.2-4.9); Mean Corpuscular HGB Conc 33.1 g/dl (31.0-35.0); Mean Corpuscular Hemoglobin 33.3 pg (27.0-33.0); Mean Corpuscular Volume 100.6 fL (80.0-98.0); NRBC Abs Auto 0.000 X10*3/uL (0.0-0.012); NRBC Pct Auto 0.0 /100WBC (0.0-0.2); Platelet Count 305 X10*3/uL (160-400); Red Blood Count 3.09 X10*6/uL (4.20-5.50); White Blood Count 9.5 X10*3/uL (4.8-10.8)
[2025-07-20 10:26] LABS: Anion Gap 13 (12-20); Blood Urea Nitrogen 27 mg/dL (9-16); Calcium 9.3 mg/dL (8.4-10.2); Carbon Dioxide 29 mmol/L (22-29); Chloride 104 mmol/L (96-108); Creatinine Clr Calc Pharmacy 31.7; Estimated Glomerular Filt Rate 49; Potassium 4.9 mmol/L (3.3-5.1); Sodium 141 mmol/L (135-145)
[2025-07-20] MEDS: iohexoL 350 MG/ML 100 ML INFUS..BTL IV (11:24)
[2025-07-20 12:03] LABS: Glucose, Whole Blood 199 mg/dL (60-115)
[2025-07-20 12:07] VITALS: BP 194/73; PULSE 70; RESP 14; TEMP 36.8; O2SAT 99
[2025-07-20 12:14] LABS: Appearance Urine Clear; Glucose Urine UA 250 mg/dL (Negative); PH 7.0 (5.0-9.0); Specific Gravity - Urine 1.015 (1.005-1.025); UMIC TRIGGER UACC YES
[2025-07-20 12:45] VITALS: BP 199/73; PULSE 69; RESP 17; TEMP 36.7; O2SAT 97
== END 2025-07-20 12:59 | disposition home or self-care (01) ==
PROVIDERS: Emergency Provider Emergency Medicine; PCP Internal Medicine
DX: B37.0 Candidal stomatitis (principal); R11.0 Nausea; R13.10 Dysphagia, unspecified; E11.9 Type 2 diabetes mellitus without complications; Z79.899 Other long term (current) drug therapy; Z79.4 Long term (current) use of insulin
CPT/HCPCS: 36415; 70491; 80048; 81001; 82947; 85025; 86140; 96360; 96361; 99284; 99285; Q9967

== ENCOUNTER → 2025-07-20 10:45 | Outpatient (BNV) | payer MEDICARE, SELFPAY | PROVIDERS: Emergency Provider Emergency Medicine; PCP Internal Medicine; Visit Provider Specialist | DX: K14.6 Glossodynia (principal); R13.10 Dysphagia, unspecified | CPT/HCPCS: 70491 ==

== ENCOUNTER 2025-07-31 06:52 | Outpatient (REF) | payer MEDICARE, SELFPAY ==
--- OUTSIDE RECORDS SUMMARY | 2025-07-31 06:55 | XMS_ITS | Clinical Summary ---
Author Organization [facility] [address] [place] [address] [place] [id number] Phone Care Team Providers Care Hand Sample Maker Name Role Phone Adelaida Broussard MD Primary Care Provider [phone] Allergies Active Allergy Reactions Criticality Noted Date [...] Date Lumbar compression fracture, closed, initial encounter ([facility] V24, [facility] V28) 04/01/2022 Overview (08/06/2024): Last Assessment & [...] to understand but he did translate into Icelandic to be sure. 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 Mrs. Jeronimo began sobbing and continue to cry as they left the appointment. Her at least agreed that they will consider this option and call my office back if they would like to proceed with surgery. Left carpal tunnel syndrome 11/03/2021 Cerebrovascular accident ([facility] V24, [facility] V 28) 11/02/2021 Overview (08/06/2024): Cerebrovascular accident NSTEMI (non-ST elevated myoc ardial infarction) ([facility] V24, [facility] V28) 11/02/2021 Overview (08/06/2024): NSTEMI Carotid bruit [...] Comments CARPAL TUNNEL RELEASE 01/28/2022 Left PROCEDURE: [place] NEUROPLASTY &/TRANSPOS MEDIAN NRV CARPAL TUNNE; COMMENT: Left carpal tunnel release with Dr. 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 Hypothyroidism DX:Hypothyroidis m Coronary artery disease DX:Coron heath artery disease Mixed hyperlipidemia DX:Mixed hy perlipidemia Diabetes mellitus type 2, co ntrolled, with complications (CMS/HCC V24, CMS/HCC V28) DX:Diabetes mellitus type 2, controlled, with complications ([facility]) Essential hypertension DX:Essent ial hypertension Legally [...] Documents on File Type Date Recorded 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
[2025-07-31 08:19] LABS: Alanine Aminotransferase 13 U/L (0-31); Albumin Level 4.2 g/dL (3.5-5.0); Alkaline Phosphatase 71 U/L (39-117); Anion Gap 15 (12-20); Aspartate Amino Transferase 39 U/L (5-31); Blood Urea Nitrogen 27 mg/dL (9-16); Calcium 9.8 mg/dL (8.4-10.2); Carbon Dioxide 28 mmol/L (22-29); Chloride 100 mmol/L (96-108); Estimated Glomerular Filt Rate 38; Potassium 5.0 mmol/L (3.3-5.1); Sodium 138 mmol/L (135-145); Total Protein 7.6 g/dL (6.5-8.0)
[2025-07-31 08:37] LABS: Thyroid Stimulating Hormone 3.61 uIU/mL (0.32-4.0)
[2025-07-31 12:47] LABS: Microalbum/Creatinine Ratio Ur 220.6 ug/mg cr (<30)
== END 2025-07-31 06:53 | disposition home or self-care (01) ==
LOC: HO.LAB 06:52
PROVIDERS: PCP Internal Medicine; Visit Provider Internal Medicine
DX: E03.8 Other specified hypothyroidism (principal); E11.65 Type 2 diabetes mellitus with hyperglycemia; E78.00 Pure hypercholesterolemia, unspecified; I10 Essential (primary) hypertension
CPT/HCPCS: 36415; 80053; 82043; 82570; 83036; 84443